=== PATIENT | male | born 1945 | race Caucasian/White ===

== ENCOUNTER → 2023-11-11 07:11 | Outpatient (REF) | payer OTHER, SELFPAY | LOC: DHCBC HW 07:11 | PROVIDERS: ATTENDING PHYSICIAN Internal Medicine; FAMILY PHYSICIAN Family Medicine | DX: I25.10 Atherosclerotic heart disease of native coronary artery without angina pectoris (principal); I34.0 Nonrheumatic mitral (valve) insufficiency; I21.19 ST elevation (STEMI) myocardial infarction involving other coronary artery of inferior wall | CPT/HCPCS: 93306 ==

== ENCOUNTER → 2023-11-21 11:27 | Outpatient (REF) | payer OTHER, SELFPAY | LOC: HWRAD 11:27 | PROVIDERS: ATTENDING PHYSICIAN Internal Medicine; FAMILY PHYSICIAN Family Medicine | DX: R05.3 Chronic cough (principal) | CPT/HCPCS: 71046 ==

== ENCOUNTER → 2023-12-20 13:17 | Outpatient (REF) | payer OTHER, SELFPAY | LOC: RAD 13:17 | PROVIDERS: ATTENDING PHYSICIAN Internal Medicine; FAMILY PHYSICIAN Family Medicine | DX: I25.10 Atherosclerotic heart disease of native coronary artery without angina pectoris (principal); I10 Essential (primary) hypertension; I21.19 ST elevation (STEMI) myocardial infarction involving other coronary artery of inferior wall; R41.0 Disorientation, unspecified | CPT/HCPCS: 93880 ==

== ENCOUNTER → 2024-01-03 08:39 | Outpatient (REF) | payer OTHER, SELFPAY | LOC: RAD 08:39 | PROVIDERS: ATTENDING PHYSICIAN Otolaryngology; FAMILY PHYSICIAN Family Medicine | DX: K21.9 Gastro-esophageal reflux disease without esophagitis (principal); R13.10 Dysphagia, unspecified | CPT/HCPCS: 74221 ==

== ENCOUNTER 2024-01-06 08:17 | Day surgery (SDC) | payer OTHER, SELFPAY ==
[2024-01-02 07:56] VITALS: BMI 30.7
[2024-01-02 08:21] LABS: % Basophils 0.6 % (0-2); % Eosinophils 2.7 % (0-6); % Immature Granulocytes 0.8 % (0-0.5); % Lymphocytes 13.6 % (20.5-51.1); % Monocytes 9.4 % (1.7-9.3); % Neutrophils 72.9 % (42.2-75.2); Absolute Basophils 0.1 10^3/uL (0-0.2); Absolute Eosinophils 0.2 10^3/uL (0-0.7); Absolute Immature Granulocytes 0.1 10^3/uL (0-0.05); Absolute Lymphocytes 1.2 10^3/uL (1.2-3.4); Absolute Monocytes 0.9 10^3/uL (0.1-0.6); Absolute Neutrophils 6.6 10^3/uL (1.4-6.5); Hematocrit 35.5 % (39.0-52.0); Mean Corp Hgb Conc. 33.8 g/dL (33.0-37.0); Mean Corpuscular Hgb 28.5 pg (27.0-31.0); Mean Corpuscular Volume 84.3 fL (80.0-94.0); Mean Platelet Volume 9.5 fL (7.4-10.4); Nucleated Red Blood Cells % 0 % (-); Platelet Count 312 10^3/uL (130-400); Red Blood Cell Count 4.21 10^6/uL (4.70-6.10); Red Cell Dist. Width 13.5 % (11.5-14.5)
[2024-01-02 08:41] LABS: ALT (SGPT) 20 U/L (0-50); AST (SGOT) 27 U/L (17-59); Albumin 4.1 g/dl (3.5-5.0); Alkaline Phosphatase 208 U/L (38-126); Blood Urea Nitrogen 16 mg/dl (9-20); Calcium 9.4 mg/dl (8.4-10.2); Carbon Dioxide 27 mmol/L (22-30); Chloride 103 mmol/L (98-107); Estimated Creatinine Clearance 63 ml/min; Glucose 140 mg/dl (70-99); Potassium 4.4 mmol/L (3.5-5.1); Sodium 136 mmol/L (135-145); Total Bilirubin 0.8 mg/dl (0.2-1.3); Total Protein 6.7 g/dl (6.3-8.2); eGFR > 60.00
[2024-01-06] VITALS (10 sets, daily range): BP systolic 123–162; BP diastolic 47–74; BMI 30.7
[2024-01-06 09:02] LABS: Glucose - Point of Care 118 mg/dl (70-99)
[2024-01-06] MEDS: NSS 251 ML IV (09:20)
--- NOTE | 2024-01-06 09:47 | ITS.CL.CATH ---
Floor Hand - Catheterization
Cardiac Catheterization
Procedure Report:
CARDIAC CATHETERIZATION REPORT
Date of Procedure: 01/06/2024
Referring: Ace Nazario MD, PhD
Indication: NSVT with known CAD. Multivessel stenting performed in 2013
HEMODYNAMIC DATA
AO: 138/63
LV: 142/17
PCWP: 17
PA: 42/18
RV: 42/10
RA: 9
Oximetry: Ao 95%, PA 70%, cardiac output 5.5, cardiac index 2.9
There is a trivial gradient across the aortic valve on pullback likely reflecting aortic sclerosis without significant stenosis
LEFT VENTRICULOGRAPHY: Inferobasal akinesis with otherwise normal wall motion with EF 51%
CORONARY ANGIOGRAPHY
Dominance: Right
Left Main: Normal
LAD: There is no significant disease in the proximal LAD. There is a long stented segment in the mid LAD with a focal area of 30-40% stenosis. The remainder of the LAD system has trivial luminal irregularities
Circumflex: Focal 40% mid stenosis in the large terminal OM 3. OM1 is tiny. OM 2 is a medium to large sized vessel with trivial luminal disease.
RCA: 50-60% proximal RCA stenosis. This lesion is just proximal to the stented segment which has no restenosis. There is a focal 30-40% stenosis in the midportion of the stented segment. There are tandem 30% distal RCA stenoses. The PDA and
posterolateral branch have mild luminal irregularities
FloWire assessment: At the conclusion the diagnostic study we evaluated the proximal and mid RCA lesions with FloWire. Heparin was used for anticoagulation. A 6 [place] JR4 guide catheter was used. A [place] wire was advanced into the mid RCA
distal to the stenosis within the previously stented segment. iFR measurements were 0.92, 0.92, and 0.93. These are consistent with nonflow-limiting disease.
Closure Device: None-the procedure was performed via the right radial artery. The Compa's test was normal prior to the procedure
Radiation dose (mGy): 609
DAP (cm2.Gy): 47.7
Fluoroscopy time: 4.1 minutes
CONCLUSIONS:
1. Mildly elevated left heart filling pressures with normal right heart filling pressures and mild pulmonary hypertension
2. Inferobasal akinesis with otherwise normal wall motion with EF 51%. The inferior wall motion abnormality was present on the prior study from 2013
3. Mild residual CAD with patent LAD and RCA stents. FloWire assessment of the RCA disease shows this is nonflow limiting
RECOMMENDATIONS: Continue beta-anna for NSVT. Given the presence of a inferobasal scar. If there are symptoms concerning for more prolonged episodes of ventricular tachycardia, EPS can be considered
Copy to: Ace Nazario MD, PhD, Ira Coleman DO
Carl Daugherty MD, FACC, [facility]
[2024-01-06 10:20] LABS: ACT-LR - POC 161 Seconds (116-155)
[2024-01-06] MEDS: TYLENOL 650 MG PO (11:26)
--- NOTE | 2024-01-06 12:52 | PTCARENOTE ---
pt in nsr w rt bbb w hr of 45-55/ pt now having frequent pauses . notified matthew jacobs of [facility] . otherwise pt aa and oriented x 3 without complaint.
--- NOTE | 2024-01-06 13:10 | PTCARENOTE ---
pt pauses are less than 2 seconds. pt is not symptomatic
--- NOTE | 2024-01-06 13:19 | PTCARENOTE ---
dr de luna aware of rythum and believes pt has mobits 1. no furthur treatment needed
== END 2024-01-06 12:27 | disposition home or self-care (01) ==
LOC: CATH 08:17
PROVIDERS: ATTENDING PHYSICIAN Internal Medicine Cardiovascular Disease; FAMILY PHYSICIAN Family Medicine; OTHER PHYSICIAN Internal Medicine
DX: I25.10 Atherosclerotic heart disease of native coronary artery without angina pectoris (principal); Z95.5 Presence of coronary angioplasty implant and graft; I47.20 Ventricular tachycardia, unspecified; R06.09 Other forms of dyspnea; I10 Essential (primary) hypertension; E78.00 Pure hypercholesterolemia, unspecified; I44.2 Atrioventricular block, complete; I08.1 Rheumatic disorders of both mitral and tricuspid valves; I27.20 Pulmonary hypertension, unspecified; J44.9 Chronic obstructive pulmonary disease, unspecified; G47.33 Obstructive sleep apnea (adult) (pediatric); E11.9 Type 2 diabetes mellitus without complications; Z87.891 Personal history of nicotine dependence; Z79.82 Long term (current) use of aspirin; Z79.84 Long term (current) use of oral hypoglycemic drugs
CPT/HCPCS: C1769; C1894; 36415; 80053; 82962; 85025; 85347; 93005; 93460; 93571; Q9967

== ENCOUNTER 2024-01-17 06:33 | Day surgery (SDC) | payer OTHER, SELFPAY ==
[2024-01-17] VITALS (21 sets, daily range): BP systolic 110–167; BP diastolic 62–91
--- NOTE | 2024-01-17 08:23 | W.ICD.CONTRA ---
Post ICD/[employer]IME PLANT OPERATOR-D
-
History of LA?: Yes
LV Function
Left ventricular function study result?: Ejection Fraction >/= 40%
ACEI/ARB/ARNI
Patient already on ACEI/ARB/ARNI: Yes
Beta-Whitney
Patient already on Beta Whitney: Yes
--- NOTE | 2024-01-17 08:54 | ITS.CL.ICD ---
Buyer Intern - ICD
Implantable Cardioverter Defibrillator
Procedure Report:
Dual Chamber Implantable Cardioverter Defibrillator Placement:
Mr. Malhotra is a very pleasant 78 years old gentleman with recurrent syncope, non-sustained ventricular tachycardia and bradycardia with RCA disease and TX scar is recommended a dual chamber ICD placement.
Indications: VT with syncope - Secondary prevention of sudden cardiac for ventricular tachycardia
Date of the Procedure: 01/17/2024
Pre-Operative Diagnosis: Secondary prevention of sudden cardiac for ventricular tachycardia
Post-Operative Diagnosis: Secondary prevention of sudden cardiac for ventricular tachycardia
Procedure Performed: DUAL CHAMBER IMPLANTABLE CARDIOVERTER DEFIBRILLATOR IMPLANTATION
Performing physician:
Bertha De Santiago MD
Anesthesia:
See anesthesia records
Detailed Description of the Procedure:
The patient was identified using hospital identification and informed consent obtained for the procedure. The risks were explained including, but not limited to: Bleeding, infection, arrhythmia, stroke, vascular/cardiac/lung puncture, surgery,
pacemaker dependency/device malfunction. All questions were answered.
The patient was brought to the electrophysiology laboratory in stable condition in fasting state. Continuous electrocardiographic and hemodynamic monitoring was initiated. The initial rhythm was normal sinus rhythm with PVCs.
The procedure site was meticulously prepared with surgical scrub and allowed to dry with no pooling. Sterile draping was applied to cover the procedure site. The image intensifier was draped with sterile bag and positioned over the patient.
The left infraclavicular region was prepped and draped in the usual sterile fashion. Local anesthesia was administered subcutaneously using 1% lidocaine / Bupivacaine. The left cephalic vein cutdown was performed with an incision at the
delto-pectoral groove, and vascular sheaths were introduced for lead access. These were advanced into the right ventricle and the right atrium.
The right ventricular lead was secured in position with an active fixation technique at the apical septal location.
The RA lead was attached in the right atrial appendage with active fixation.
There was excellent sensing, pacing, and impedance from the leads, with no diaphragmatic stimulation at 10 V output.�Bovie cautery, antibiotics, and fluoroscopy were used.
The sheath was withdrawn, and the thresholds remained acceptable. The leads were secured in position at the venous entry site with Ethibond and anchored to the underlying fascia. A pocket was fashioned contiguous to the incision. The electrode
terminals were connected to the pulse generator, which was placed into the pocket. The wound was irrigated thoroughly with antibiotic solution.
The wound was closed in 3 layers using 2-0 Vloc sutures followed by 4-0 V-loc sutures. Steri-Strips and a bandage were applied externally.�
Procedure End:
The procedure was tolerated well. A bandage was applied to the incision area.
Estimated Blood loss:
5 cc
Specimens Removed:
No cultures and no specimens were obtained. No intraoperative pathology was identified.
Urine output:
None
Packs / Drains/ Tubes:
None
Instrument / Sponge Count Correct:
Yes
Complications of the Procedure:
None
Condition of Patient at Time of Transfer:
Hemodynamically stable with no neurological or vascular compromise.
Device information:�
Generator: [employer]; Model: [id number]; Serial # [id number]�
Atrial Lead: [employer]; Model: Tendril STS [id number]; Serial # [id number]
Measured data in the right atrium was sensing of 1.1 mV, impedance of 410 ohms and threshold of 0.75 V at 0.4ms�
RV Lead: [employer]; Model: [id number] - 65; Serial # [id number]
Measured data in the RV lead was sensing of >12 mV, impedance of 660ohms and threshold of 0.5 V at 0.4ms�
PROGRAMMING PARAMETERS:�
Conor parameter settings were DDDR 60-120 bpm
����������� Mode switch: On
����������� Rate responsive A-V delay: Off
����������� Ventricular intrinsic Preference (VIP): on
����������� VIP extension:� 200 ms
����������� Search interval 30 sec
Output� parameters:
����������������������� Amplitude (V)������������� Pulse Width (ms)������� Sensitivity (mV)
����������� RA: ����� 2.5 ����������������������������� 0.5������������������������������ Auto
����������� RV:������ 2.5������������������������������ 0.5������������������������������ Auto
Tachy parameter settings:
����������� SVT discrimination: On
����������� AF/AFl: On
����������� SVT limit: 260 msec
����������� VT zone:
����������������������� Slow VT: 150-171 bpm --> Monitor
����������������������� Fast VT: 171-200--> ATP x3 then Shock x3
����������������������� VF: >200 bpm--> ATP x1 then Shock x6
�����������
Summary:
Successful implantation of MRI compatible dual chamber Tran ICD pacemaker
Results/Recommendations:
-Please follow up CXR�
1. Please provide patient with adequate pain control�
Instructions to be given to patient:�
- Please follow up with [facility] at [address] [place] [address] ([phone]) to get your wound checked within 7 days of your discharge.
- Do not wet incision site until after it is evaluated at cardiology clinic. No showers until then. Sponge baths are OK.�
- Allow 'steri strips' to fall off on their own�
- Do not lift left elbow above shoulder, particularly with sudden jerking movements, for 1 month�
- Do not lift anything weighing more than 5 pounds with the left arm for 1 month�
- If you notice any fevers, shortness of breath, lightheadedness, chest pain, or worsening swelling in the wound site, please contact the arrhythmia clinic, contact your underground miner, or present to the hospital for evaluation.�
Bertha De Santiago MD
Electrophysiology
--- NOTE | 2024-01-17 13:20 | W.PN.UPDATE ---
Update Note
Progress Note Update
Pt seen post ICD implant. Left ACW w/aquacel dressing CDI, no ht/bleeding. Post CXR w/stable lead position, no pneumothorax. Activity limitations reviewed with pt/. Incision check next week at [facility] with [employer] PROFESSOR. Home later today after 2nd dose
antibiotics.
[2024-01-17] MEDS: ANCEF 5 IV (13:54)
== END 2024-01-17 14:10 | disposition home or self-care (01) ==
LOC: CATH 06:33
PROVIDERS: ATTENDING PHYSICIAN Internal Medicine Cardiovascular Disease; FAMILY PHYSICIAN Family Medicine; OTHER PHYSICIAN Internal Medicine
DX: I44.2 Atrioventricular block, complete (principal); I47.20 Ventricular tachycardia, unspecified; I25.10 Atherosclerotic heart disease of native coronary artery without angina pectoris; R06.09 Other forms of dyspnea; I25.2 Old myocardial infarction; I11.9 Hypertensive heart disease without heart failure; Z95.5 Presence of coronary angioplasty implant and graft; E78.00 Pure hypercholesterolemia, unspecified; I08.1 Rheumatic disorders of both mitral and tricuspid valves; E11.9 Type 2 diabetes mellitus without complications; G47.33 Obstructive sleep apnea (adult) (pediatric); K76.0 Fatty (change of) liver, not elsewhere classified; Z87.891 Personal history of nicotine dependence; Z79.82 Long term (current) use of aspirin; Z79.84 Long term (current) use of oral hypoglycemic drugs
CPT/HCPCS: 33249; C1892; 71045; 93005; C1721; C1895; C1898

== ENCOUNTER → 2024-02-15 08:13 | Outpatient (REF) | payer OTHER, SELFPAY | LOC: HWRAD 08:13 | PROVIDERS: ATTENDING PHYSICIAN Nurse Practitioner Adult Health; FAMILY PHYSICIAN Family Medicine | DX: R05.3 Chronic cough (principal) | CPT/HCPCS: 71250 ==

== ENCOUNTER → 2024-03-13 08:05 | Outpatient (REF) | payer OTHER, SELFPAY | LOC: HWRAD 08:05 | PROVIDERS: ATTENDING PHYSICIAN Surgery Vascular Surgery; FAMILY PHYSICIAN Family Medicine | DX: I72.3 Aneurysm of iliac artery (principal); I71.02 Dissection of abdominal aorta; I70.0 Atherosclerosis of aorta | CPT/HCPCS: 74174; Q9967 ==

== ENCOUNTER → 2024-07-27 13:25 | Outpatient (REF) | payer OTHER, SELFPAY | LOC: RCS 13:25 | PROVIDERS: ATTENDING PHYSICIAN Nurse Practitioner Gerontology; FAMILY PHYSICIAN Family Medicine | DX: I34.0 Nonrheumatic mitral (valve) insufficiency (principal); C34.91 Malignant neoplasm of unspecified part of right bronchus or lung | CPT/HCPCS: 93306; 93356 ==

== ENCOUNTER 2024-08-03 19:10 | Inpatient (IN) | payer OTHER, SELFPAY ==
[2024-08-03 14:30] VITALS: BP 154/80
--- NOTE | 2024-08-03 14:30 | ED.SKININJ ---
HPI-Injury
General
Chief Complaint: Breathing Problem
Time Seen by Provider: 08/03/24 16:37
ED Provider Triage
-
Patient seen by provider in Triage?: Seen in Triage
Attestation: A medical screening examination has been initiated by a qualified medical provider. Based on the assessment performed at this time, it has been determined that an emergent medical condition may exist and the patient has been informed
that further medical evaluation and possible additional diagnostic testing may be needed.
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 Had a CAT scan at [facility] yesterday and was called today notified that he has fluid on the lungs and he should come to the
emergency department.
Chemo scheduled for yesterday but not given
Patient's cytology teacher is Dr. Nazario patient has been in contact with him today
Has been on Lasix 20 mg past 3 days and states ankle/feet swelling much improved.
GENERAL: Alert , in no apparent distress
EYE: No visual abnormalities.
NECK: Trachea midline
ENT: No visible abnormalities.
LUNGS: No acute respiratory distress. Crackles left lung base. Pulse ox 98% RA
NEUROLOGICAL: Alert and oriented
SKIN: Skin intact. No visible changes.
MUSCULOSKELETAL: Moving extremities normally
PSYCH: Normal and appropriate interaction.
This is a medical evaluation conducted in person to initiate diagnostic evaluation and provide initial therapeutics. Please see further documentation by the treating clinician.
Past History
Past History
ED Past Medical History: CAD, GERD, HTN, Hypercholesterolemia, NIDDM and SD
ED Past Surgical History: Cholecystectomy
Social History
Tobacco: Former smoker
Alcohol: None
Drug: None
Personal:
Living: with family
Employment: Employed
Family History
Family History: Other (Noncontributory)
Course
Orders/Labs/Results
Orders:
Orders
08/03/24 14:33
CR Chest - 2 Views Urgent
Comment:
Reason For Exam: SOB, told he has pleural effusion
08/03/24 14:38
Complete Blood Count/With Diff Urgent
Comprehensive Metabolic Panel Urgent
NT-proBNP Urgent
Troponin I Urgent
08/03/24 16:57
Furosemide [Lasix] 40 mg IV NOW STA
Abnormal Lab Results
08/03/24
14:38
RBC 2.42 L 10^6/uL
(4.70-6.10)
Hgb 7.6 L g/dL
(13.0-18.0)
Hct 24.6 L %
(39.0-52.0)
MCV 101.7 H fL
(80.0-94.0)
MCH 31.4 H pg
(27.0-31.0)
MCHC 30.9 L g/dL
(33.0-37.0)
RDW 28.0 H %
(11.5-14.5)
Abs Immat Gran (auto) 0.2 H 10^3/uL
(0-0.05)
Absolute Lymphs (auto) 0.7 L 10^3/uL
(1.2-3.4)
Absolute Monos (auto) 1.1 H 10^3/uL
(0.1-0.6)
Immature Gran % 1.8 H %
(0-0.5)
Neutrophils % 76.7 H %
(42.2-75.2)
Lymphocytes % 7.8 L %
(20.5-51.1)
Monocytes % 12.9 H %
(1.7-9.3)
Glucose 65 L mg/dl
(70-99)
Alkaline Phosphatase 193 H U/L
(38-126)
Troponin I 0.035 H* ng/ml
Total Protein 5.9 L g/dl
(6.3-8.2)
08/03/24 14:38
08/03/24 14:38
Vital Signs
Initial and Last Documented VS:
Initial Vital Signs
Temp Pulse Resp BP Pulse Ox
98.2 F 74 16 154/80 97
08/03/24 14:30 08/03/24 14:30 08/03/24 14:30 08/03/24 14:30 08/03/24 14:30
Last Documented Vital Signs
Temp Pulse Resp BP Pulse Ox
98.2 F 74 16 154/80 97
08/03/24 14:30 08/03/24 14:30 08/03/24 14:30 08/03/24 14:30 08/03/24 14:30
ED Attending Note
-
Portions of this chart may have been created with voice recognition software.� Occasional wrong word or��sound alike� substitutions may have occurred due to the inherent limitations of voice recognition software.
Discharge Plan
Departure
Prescriptions:
No Action
metoprolol tartrate 50 MG tablet
50 mg PO BID
nitroglycerin 0.4 MG tablet, sublingual
0.4 mg sublingual Q5MPRN PRN (Reason: chest pain)
aspirin 81 MG tablet,delayed release (DR/EC)
81 mg PO DAILY
cyanocobalamin (vitamin B-12) 100 MCG tablet
1,000 mcg PO DAILY
esomeprazole magnesium [Nexium] 20 MG capsule,delayed release(DR/EC)
20 mg PO DAILY
multivitamin Tablet
1 tab PO DAILY
metformin 500 mg Tablet
1,000 mg PO BID
acetaminophen 325 mg Tablet
650 mg PO Q4HPRN PRN (Reason: pain)
amlodipine 5 mg Tablet
5 mg PO QPM
glimepiride 2 mg Tablet
2 mg PO DAILY
benzonatate 100 mg Capsule
100 mg PO TID
rosuvastatin 10 mg Tablet
10 mg PO QPM
albuterol sulfate 90 mcg/actuation Hfa Aerosol Inhaler
1 puff INHALATION Q4HPRN PRN (Reason: SOB)
inulin 2.5 gram Tablet,Chewable
5 g PO QPM
valsartan 160 mg Tablet
160 mg PO BID
dihydroxyaluminum sodium carb 334 mg Tablet,Chewable
334 mg PO DAILY PRN (Reason: Reflux)
guaifenesin 100 mg/5 mL Liquid
200 mg PO Q4HPRN PRN (Reason: chest congestion)
Referrals:
Ira Coleman, [Family Provider] -
Interventions
Interventions:
*Risk Screen - Suicide Last Done: 08/03/24 14:30
*Neglect/Abuse Screening Last Done: 08/03/24 14:30
Discharge Date and Time
Print Language: BRUNEIAN
[2024-08-03 15:05] LABS: ALT (SGPT) 19 U/L (0-50); AST (SGOT) 38 U/L (17-59); Albumin 3.9 g/dl (3.5-5.0); Alkaline Phosphatase 193 U/L (38-126); Blood Urea Nitrogen 13 mg/dl (9-20); Calcium 8.5 mg/dl (8.4-10.2); Carbon Dioxide 29 mmol/L (22-30); Chloride 105 mmol/L (98-107); Glucose 65 mg/dl (70-99); Potassium 3.8 mmol/L (3.5-5.1); Sodium 142 mmol/L (135-145); Total Bilirubin 0.5 mg/dl (0.2-1.3); Total Protein 5.9 g/dl (6.3-8.2); eGFR > 60.00
[2024-08-03 15:06] LABS: % Basophils 0.4 % (0-2); % Eosinophils 0.4 % (0-6); % Immature Granulocytes 1.8 % (0-0.5); % Lymphocytes 7.8 % (20.5-51.1); % Monocytes 12.9 % (1.7-9.3); % Neutrophils 76.7 % (42.2-75.2); Absolute Immature Granulocytes 0.2 10^3/uL (0-0.05); Absolute Lymphocytes 0.7 10^3/uL (1.2-3.4); Absolute Monocytes 1.1 10^3/uL (0.1-0.6); Absolute Neutrophils 6.5 10^3/uL (1.4-6.5); Hematocrit 24.6 % (39.0-52.0); Hemoglobin 7.6 g/dL (13.0-18.0); Mean Corp Hgb Conc. 30.9 g/dL (33.0-37.0); Mean Corpuscular Hgb 31.4 pg (27.0-31.0); Mean Corpuscular Volume 101.7 fL (80.0-94.0); Mean Platelet Volume 10.1 fL (7.4-10.4); Nucleated Red Blood Cells % 0 % (-); Platelet Count 211 10^3/uL (130-400); Red Blood Cell Count 2.42 10^6/uL (4.70-6.10); White Blood Cell Count 8.4 10^3/uL (4.8-10.8)
[2024-08-03 15:24] LABS: NT-proBNP 4520 pg/ml; Troponin I 0.035 ng/ml
[2024-08-03 15:41] LABS: Anisocytosis 2+; Normal RBC Morphology No
[2024-08-03 15:42] LABS: Hypochromasia 1+; Macrocytosis 2+; Microcytosis 1+; Poikilocytosis Slight; Polychromasia Slight
[2024-08-03 15:43] LABS: Ovalocytes Slight
[2024-08-03 16:40] VITALS: BP 165/76
[2024-08-03 17:00] VITALS: BP 180/74
--- NOTE | 2024-08-03 17:18 | ED.GENMED ---
History of Present Illness
General
Chief Complaint: Breathing Problem
Source: patient and spouse
Exam Limitations: none
Time Seen by Provider: 08/03/24 16:37
History of Present Illness
History of Present Illness:
79-year-old male increase shortness of breath the last 3 to 4 days. Some increased leg swelling. Discussed with patient's oncologist and cigar packing examiner. They added Lasix 20 mg a day 4 days ago[address] Minimal improvement. CT angio done yesterday as an
outpatient by his oncologist was unremarkable for PE but had bilateral effusions. All labs and testing was consistent with CHF. Sent in for further evaluation.
Past History
Past History
ED Past Medical History: CAD, GERD, HTN, Hypercholesterolemia, NIDDM and VT
ED Past Surgical History: Cardiac (Pacer defibrillator) and Cholecystectomy
Social History
Tobacco: Former smoker
Alcohol: None
Drug: None
Personal:
Living: with family
Employment: Employed
Family History
Family History: Other (Noncontributory)
Review of Systems
Review of Systems
All Other Systems: Not applicable
Constitutional: Denies fever or chills
Respiratory: Denies cough
Cardiac: Denies chest pain
Phy Exam
Physical Exam
Physical Exam:
GENERAL: Alert and oriented in no apparent distress
EYE: Orbits normal.
NECK: Supple, no significant adenopathy.
ENT: Pharynx without erythema
CARDIAC: Regular rate and rhythm pacemaker upper chest wall. Pacemaker upper chest wall
LUNGS: Minimal tachypnea. Dry rales in the bases.
ABDOMEN: Soft, without focal tenderness or distention
NEUROLOGICAL: Alert and oriented , grossly non-focal
SKIN: Warm and dry, no rash or lesion, no discoloration, skin intact.
MUSCULOSKELETAL: Mild pitting edema bilaterally
PSYCH: Normal and appropriate interaction.
Scores
Heart Failure Risk
Heart Failure Risk Score: Yes
History of Stroke or TIA: No
History of intubation for respiratory distress: No
Heart rate on ED arrival >/= 110: No
SaO2 <90% on arrival on room air: No
HR >/=110 during 3min walk test (or too ill to perform test): Yes
ECG has acute ischemic changes: No
Urea >/=12mmol/L (BUN 33.6mg/dL): No
Serum CO2>/=35mmol/L: No
Troponin I or T elevated to VT Level (0.4mg/dL): No
NT-proBNP >/=5,000ng/L (5,000pg/ml): No
HF Risk Score: 2
Admission Status: MEDIUM RISK 9.2% Consider observation or discharge to home with homecare & f/u visit to PCP/[employer], or SNF for treatment
Course
Orders/Labs/Results
Orders:
Orders
08/03/24 14:33
CR Chest - 2 Views Urgent
Comment:
Reason For Exam: SOB, told he has pleural effusion
08/03/24 14:38
Complete Blood Count/With Diff Urgent
Comprehensive Metabolic Panel Urgent
NT-proBNP Urgent
Troponin I Urgent
08/03/24 16:57
Furosemide [Lasix] 40 mg IV NOW STA
Abnormal Lab Results
08/03/24
14:38
RBC 2.42 L 10^6/uL
(4.70-6.10)
Hgb 7.6 L g/dL
(13.0-18.0)
Hct 24.6 L %
(39.0-52.0)
MCV 101.7 H fL
(80.0-94.0)
MCH 31.4 H pg
(27.0-31.0)
MCHC 30.9 L g/dL
(33.0-37.0)
RDW 28.0 H %
(11.5-14.5)
Abs Immat Gran (auto) 0.2 H 10^3/uL
(0-0.05)
Absolute Lymphs (auto) 0.7 L 10^3/uL
(1.2-3.4)
Absolute Monos (auto) 1.1 H 10^3/uL
(0.1-0.6)
Immature Gran % 1.8 H %
(0-0.5)
Neutrophils % 76.7 H %
(42.2-75.2)
Lymphocytes % 7.8 L %
(20.5-51.1)
Monocytes % 12.9 H %
(1.7-9.3)
Glucose 65 L mg/dl
(70-99)
Alkaline Phosphatase 193 H U/L
(38-126)
Troponin I 0.035 H* ng/ml
Total Protein 5.9 L g/dl
(6.3-8.2)
08/03/24 14:38
08/03/24 14:38
Vital Signs
Initial and Last Documented VS:
Initial Vital Signs
Temp Pulse Resp BP Pulse Ox
98.2 F 74 16 154/80 97
08/03/24 14:30 08/03/24 14:30 08/03/24 14:30 08/03/24 14:30 08/03/24 14:30
Last Documented Vital Signs
Temp Pulse Resp BP Pulse Ox
98.2 F 74 16 154/80 97
08/03/24 14:30 08/03/24 14:30 08/03/24 14:30 08/03/24 14:30 08/03/24 14:30
MDM/Problems Addressed
Differential Diagnosis Includes:
Patient with increased shortness of breath leg swelling elevated proBNP effusions by CT. CHF. May also be contributed by anemia. Rectal exam negative. Warrants inpatient management.
*Critical Care Note
Total Time (30-74mins, 75-104mins- exclusive of procedures): Not Applicable
Update Note
Update Note:
Patient remained stable. Treat CHF first. Consent for blood done but they will hold all and blood for now
ED Attending Note
-
Portions of this chart may have been created with voice recognition software.� Occasional wrong word or��sound alike� substitutions may have occurred due to the inherent limitations of voice recognition software.
Discharge Plan
Departure
Patient Disposition: Admit
Date of Disposition: 08/03/24
Time of Disposition: 17:23
Presentation/result/management discussed w/ accepting MD/DO: Hospitalist
Discharge Problem:
CHF/anemia, History of lung CA
Prescriptions:
No Action
metoprolol tartrate 50 MG tablet
50 mg PO BID
aspirin 81 MG tablet,delayed release (DR/EC)
81 mg PO HS
metformin 500 mg Tablet
500 mg PO BID@0800,1400
glimepiride 2 mg Tablet
1 mg PO DAILY
benzonatate 100 mg Capsule
100 mg PO BID
rosuvastatin 10 mg Tablet
10 mg PO DAILY
albuterol sulfate 90 mcg/actuation Hfa Aerosol Inhaler
1 puff INHALATION Q4HPRN PRN (Reason: SOB)
valsartan 160 mg Tablet
160 mg PO BID
guaifenesin 100 mg/5 mL Liquid
200 mg PO Q4HPRN PRN (Reason: chest congestion)
metformin 500 mg tablet
1,000 mg PO HS
cyanocobalamin (vitamin B-12) 1,000 mcg Tablet
1,000 mcg PO HS
pantoprazole 40 mg tablet,delayed release (DR/EC)
40 mg PO BID
folic acid 1 mg tablet
1 mg PO DAILY
Anoro Ellipta 62.5-25 mcg/actuation blister with device
1 inh INHALATION R DAILY
Referrals:
Ira Coleman, [Family Provider] -
Interventions
Interventions:
*Risk Screen - Suicide Last Done: 08/03/24 14:30
*Neglect/Abuse Screening Last Done: 08/03/24 14:30
Discharge Date and Time
Print Language: [place] ISLAND[place]
[2024-08-03] MEDS: LASIX 40 MG IV (17:28)
--- NOTE | 2024-08-03 18:10 | HPS.HSE ---
Addendum entered and electronically signed by Piero Lutz MD 08/03/24 18:49:
Addendum HX:
HX stage IV Lung CA
- Chemo Tx ever 3weeks at [facility]
Original Note:
Family Physician
-
Family Physician: Ira Coleman
Chief Complaint
-
soB and Saira swelling
History of Present Illness
HPI
HX Lung CA , HTN, HLD, DMT2 , on baby ASA seen at ER:
- for evaluation of shortness of breath the last 3 to 4 days
- associated with increased leg swelling
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
Oncologist ordered CT angio done yesterday as an outpatient by his oncologist was unremarkable for PE but had bilateral effusions.
Medical History
Past Medical History
Past Medical History: Reports CAD, CHF (LVEF 45- 50 as of 07/27/24 ECHO ), GERD, HTN, Hypercholesterolemia, NIDDM and AK
Past Surgical History: Reports Cardiac (Pacer defibrillator) and Cholecystectomy
Social History
Tobacco: Former Smoker
Alcohol: None
Drug: None
Personal:
Family History
Family History: Not pertinent
Allergies / Home Medications
Allergies reflects when Allergies were last updated in [facility].
Home Medications with original date entered in [facility]
Allergy/Medication List:
Allergies
Allergy/AdvReac Type Severity Reaction Status Date / Time
fenofibrate Allergy Unknown Unknown Verified 08/03/24 14:32
lisinopril Allergy Unknown Unknown Verified 08/03/24 14:32
omeprazole Allergy Unknown Unknown Verified 08/03/24 14:32
Home Medications
metoprolol tartrate 50 mg tablet 50 mg PO BID 11/22/14
aspirin 81 mg tablet,delayed release 81 mg PO HS 08/14/15
benzonatate 100 mg capsule 100 mg PO BID 12/30/23
glimepiride 2 mg tablet 1 mg PO DAILY 12/30/23
metformin 500 mg tablet 500 mg PO BID@0800,1400 12/30/23
rosuvastatin 10 mg tablet 10 mg PO DAILY 12/30/23
albuterol sulfate 90 mcg/actuation aerosol inhaler 1 puff inhalation Q4HPRN PRN SOB 01/02/24
valsartan 160 mg tablet 160 mg PO BID 01/06/24
guaifenesin 100 mg/5 mL oral liquid 200 mg PO Q4HPRN PRN chest congestion 01/17/24
cyanocobalamin (vitamin B-12) 1,000 mcg tablet 1,000 mcg PO HS 08/03/24
folic acid 1 mg tablet 1 mg PO DAILY 08/03/24
metformin 500 mg tablet 1,000 mg PO HS 08/03/24
pantoprazole 40 mg tablet,delayed release 40 mg PO BID 08/03/24
umeclidinium 62.5 mcg-vilanterol 25 mcg/actuation powdr for inhalation (Anoro Ellipta) 1 inh inhalation R DAILY 08/03/24
Review of Systems
-
Constitutional: Reports No Symptoms
EENT: Reports No Symptoms
Respiratory: Reports Trouble Breathing
Cardiac: Reports See HPI
Abdomen/GI: Reports No Symptoms
: Reports No Symptoms
Musculoskeletal: Reports No Symptoms
Skin: Reports No Symptoms
Neurological: Reports No Symptoms
Endocrine: Reports No Symptoms
Hematologic/Lymphatic: Reports No Symptoms
Psych: Reports No Symptoms
Physical Exam
Vital Signs
Vital Signs
Temp Pulse Resp BP Pulse Ox
98.2 F 74 16 154/80 97
08/03/24 14:30 08/03/24 14:30 08/03/24 14:30 08/03/24 14:30 08/03/24 14:30
Physical Exam
General: No Apparent Distress
HEENT: NormoCephalic and Anicteric
Respiratory: Rales (Dry rales in the bases.) and Other (tachypnea )
Cardiac: S1/S2; No Murmur
GI: Soft, Non Tender and Non Distended
Musculoskeletal: Other (Mild pitting edema bilaterally under b/l compression stocking )
Neuro: AO x 3
Psych: Calm
Laboratory Results
-
08/03/24 14:38
08/03/24 14:38
Laboratory Results
Total Bilirubin 0.5 mg/dl (0.2-1.3) 08/03/24 14:38
AST 38 U/L (17-59) 08/03/24 14:38
ALT 19 U/L (0-50) 08/03/24 14:38
Alkaline Phosphatase 193 U/L (38-126) H 08/03/24 14:38
Troponin I 0.035 ng/ml H* 08/03/24 14:38
Data Reviewed
-
Medical Tests (Nuc Med, Echo, EKG etc): Report Reviewed by me
Lab Data: Labs Reviewed by me
Impression/Plan
-
Reviewed VS: unremarkable
Pending CXR report
Laboratory Tests
01/02/24 08/03/24
08:07 14:38
Hgb 12.0 L 7.6 L
MCV 101.7 H
Glucose 65 L
Alkaline Phosphatase 193 H
Troponin I 0.035 H*
Lpm-Y-Hapkpplwurp Pept 4520
07/27/24 TTE
Mildly reduced left ventricular systolic function.
Left ventricular ejection fraction is 45-50% by visual assessment.
Basal - mid inferior and inferolateral wall hypokinesis.
Mild-moderate mitral regurgitation.
Compared to the prior study on 11/11/2023, hypokinesis in the basal to mid
inferolateral wall is now seen. EF has dropped from 50 to 55% to 45 to 50%.
No prior hospitalist admission
ASSESSMENT & PLAN
Acute dyspnea : 08/03/24 CTA NEG PE but b/l pleural effusion pr ER attd . Officail report is not available
Current evaluation concern for acute HF suspect underlying chr HFrEF ???
Elevated TPNI suspect NIMI due to acute HF
- s/p IV Lasix 40 x1 at ER
- IV Lasix 20 BID
- Trend Cr
- CBC card consult
Severe new interval anemia - element of hemodilution duet expanded volue ??
Current Hgb 7s, Last Hgb 12.0 on 01/02/24
- check HoB stool
- T & S
- Blood consented
- IV diuresis and observe Hgb
- Observe Hgb to consider Blood Tx after IV diuresis
- cont ASA and observe Hgb
- cont PO PPI daily
- DCA card consult
MAY suspect due to cardiorenal syndrome vs. over diuresis
- Daily Cr with IV diuresis
- Hold Valsartan
Hypoglycemia
T2DM
- Hold Metformin
- Hold Glimepiride
- add ISS with Hypoglycemic protocol
Essential HTN
- cont. Metoprolol
HX CAD
HX AK
HLD
- on ASA , Rosuvastatin
HX Lung CA
- OP Onco follow up
DVT Px: SCD
Code: Full
Ip TLM
--- NOTE | 2024-08-03 18:50 | W.PN.UPDATE ---
Update Note
Progress Note Update
This note serves as an addendum to the H&P by inside sales representative SAILAJA Lori DUNNE
HPI
83M HX CAD, CHF, A-Fib and CKD seen at ER:
- increased shortness of breath on exertion over the past several days.
- seen at PCP in the office today who referred him to the emergency department due to low POx
- In triage his pulse ox was documented as 82% on room air.
- reports increased lower extremity edema.
- does not weight himself on a regular basis.
ROS
denies chest pains or palpitations.
Vital Signs
Temp Pulse Resp BP Pulse Ox
98.2 F 70 11 180/74 94
08/03/24 14:30 08/03/24 18:30 08/03/24 18:30 08/03/24 17:00 08/03/24 17:00
PE
General: Comfortable
HEENT: Moist mucous membranes and wearing NC O2
Respiratory: diffuse rales
Cardiac: S1/S2, Regular Rhythm and Murmur
GI: Soft and Non Tender
Rectal: Deferred by Provider
Musculoskeletal: +3 pitting edema bilateral Saira
Skin: Warm and Dry
Neuro: Awake, Alert, Oriented and Nonfocal/grossly intact
Psych: Calm
Data
Abnormal Lab Results
08/03/24
14:38
RBC 2.42 L
Hgb 7.6 L
Hct 24.6 L
MCV 101.7 H
MCH 31.4 H
MCHC 30.9 L
RDW 28.0 H
Abs Immat Gran (auto) 0.2 H
Absolute Lymphs (auto) 0.7 L
Absolute Monos (auto) 1.1 H
Immature Gran % 1.8 H
Neutrophils % 76.7 H
Lymphocytes % 7.8 L
Monocytes % 12.9 H
Glucose 65 L
Alkaline Phosphatase 193 H
Troponin I 0.035 H*
Total Protein 5.9 L
ASSESSMENT & PLAN
Acute Hypoxic RI secondary to Acute HF
- supplemental O2 to keep POx > 93
Acute on Chronic HFrEF : DIANE February 2024: EF 30-35%
- cont. Lasix 40mg IV Daily
- trend Is&Os ad Daily Weights
- DCA card consulted
Elevated Troponin
Suspect NIMI
- trend troponin
CAD s/p CABG
- cont. atorvastatin
- cont isosorbide mononitrate
Paroxysmal AF/ A Fluter
- cont. ACCESS CLINICIAN amiodarone
- cont ACCESS CLINICIAN Coreg for rate control
- cont. Eliquis
Essential HTN
- cont ACCESS CLINICIAN Coreg and Hydralazine with hold parameters
DMT2
- cont Glipizide
- add ISS low
CKD 3b
- trend Cr on diuretics
COPD, no acute exacerbation
- cont. albuterol PRN
Hypothyroidism
- on levothyroxine
Hx Abdominal Aortic Aneurysm s/p Endovascular Repair
DVT proph: Eliquis
Code Status: DNR
IP TLM
[2024-08-03 20:43] VITALS: BP 145/54; BMI 23.9
[2024-08-03] MEDS: PROTONIX 40 MG PO (21:30)
--- NOTE | 2024-08-03 21:30 | TRANSFER ---
Pt admitted to room 418-2 from the ED, ambulated from stretcher to bed. AAOx3. Oriented pt to plan of care and room. Call zafar within reach.
[2024-08-03] MEDS: LOPRESSOR 50 MG PO (21:31)
[2024-08-03] MEDS: ASPIR LOW (ENTERIC COATED) 81 MG PO (21:31)
[2024-08-03 22:12] LABS: Troponin I 0.041 ng/ml
[2024-08-03 23:48] VITALS: BP 128/54
[2024-08-04] VITALS (9 sets, daily range): BP systolic 119–142; BP diastolic 53–65; PULSE 70–74; O2SAT 96–98; BMI 23.7
[2024-08-04 03:15] LABS: Troponin I 0.039 ng/ml
[2024-08-04 07:57] LABS: Glucose - Point of Care 102 mg/dl (70-99)
[2024-08-04] MEDS: NOVOLOG FLEXPEN-LOW RESISTANCE SC ×2 (08:00→12:31)
[2024-08-04 08:48] LABS: Hemoglobin 7.9 g/dL (13.0-18.0); Mean Corp Hgb Conc. 31.6 g/dL (33.0-37.0); Mean Corpuscular Hgb 31.7 pg (27.0-31.0); Mean Corpuscular Volume 100.4 fL (80.0-94.0); Mean Platelet Volume 10.1 fL (7.4-10.4); Platelet Count 209 10^3/uL (130-400); Red Blood Cell Count 2.49 10^6/uL (4.70-6.10); Red Cell Dist. Width 27.6 % (11.5-14.5); White Blood Cell Count 5.6 10^3/uL (4.8-10.8)
[2024-08-04] MEDS: CRESTOR 10 MG PO (08:50)
[2024-08-04] MEDS: FOLVITE 1 MG PO (08:50)
[2024-08-04] MEDS: LASIX 20 MG PO ×2 (08:50→16:48)
[2024-08-04] MEDS: LOPRESSOR 50 MG PO ×2 (08:50→20:15)
[2024-08-04] MEDS: PROTONIX 40 MG PO ×2 (08:50→20:15)
[2024-08-04 08:59] LABS: ALT (SGPT) 21 U/L (0-50); AST (SGOT) 40 U/L (17-59); Alkaline Phosphatase 210 U/L (38-126); Blood Urea Nitrogen 14 mg/dl (9-20); Calcium 8.1 mg/dl (8.4-10.2); Carbon Dioxide 30 mmol/L (22-30); Chloride 104 mmol/L (98-107); Direct Bilirubin 0.2 mg/dl (0.0-0.4); Estimated Creatinine Clearance 56 ml/min; Glucose 90 mg/dl (70-99); HDL Cholesterol 55 mg/dl; LDL Cholesterol, Calculated 35 mg/dl; Potassium 3.5 mmol/L (3.5-5.1); Sodium 143 mmol/L (135-145); Total Bilirubin 0.6 mg/dl (0.2-1.3); Total Cholesterol 122 mg/dl (50-199); Total Protein 6.1 g/dl (6.3-8.2); Triglyceride 161 mg/dl (10-149); Very Low Density Lipoprotein 32 mg/dl (0-30); eGFR > 60.00
[2024-08-04 09:03] LABS: Troponin I 0.043 ng/ml
--- NOTE | 2024-08-04 09:38 | CON.CAR ---
Addendum entered and electronically signed by Bertha De Santiago MD 08/04/24 13:11:
79-year-old gentleman with history of coronary disease status post PCI to LAD and RCA with inferior OH, bifascicular block and history of VT status post dual-chamber ICD placement (01/17/2024�Jonnathan), hypertension, COPD, obstructive sleep apnea,
history of GI bleeding, renal CA of the lung who is admitted with acute heart failure. Patient has recently been noted to have drop in LVEF from 50% to 45% thought to be secondary to chemotherapy. Patient was given IV Lasix that has significantly
improved his condition already. During his hospitalization, we will try to initiate and uptitrate GDMT as tolerated.
Patient has already received IV Lasix and appears to be close to euvolemic. I would use p.o. Lasix at this time. Most of his symptoms might be related to his severe anemia which could also be due to chemotherapy.
Original Note:
Consultation
Consultation Request
Date/Time Consultation Requested: 08/04/2024 0730
Date/Time Consultation Performed: 08/04/2024 0800
Requesting Provider: Dr. Lutz
Performing Provider: Dr. De Santiago
Reason for Consultation: CHF
Medical History
-
Chief Complaint: SOB
History of Present Illness:
79-year-old patient with history of CAD prior LAD and RCA stents 2013, prior inferior OH, first-degree AV block, bifascicular block PACs VT with ICD placement, hypertension dyslipidemia COPD JD on CPAP history of GI bleeding and adenocarcinoma of
the lung. Patient was having increasing shortness of breath and presented for a chemo treatment. At that visit there was concern for heart failure and he was referred to the emergency room for evaluation. He notes that he has having increased
dyspnea with activity especially that she stairs. He denies symptoms at rest. He did note some mild bilateral lower extremity edema. He states his weights at home have been stable. They fluctuate approximately 1 pound per day. There has not
been a significant increase in the last several months. As an outpatient he attempted to take Lasix but there was no improvement in his symptoms.
Past Medical History
Past Medical History: Other (CAD, LAD and RCA stents, AV block bifascicular block, VT status post ICD, mild MR, hypertension, dyslipidemia, adenocarcinoma of the lung, asthma, JD with CPAP, history of GI bleeding)
Past Surgical History: Other (Cholecystectomy prior PCI with VALERIA, L4 epidurals, ICD, history of liver biopsy)
Social History
Tobacco: Non-Smoker
Personal:
Living: With Family
Family History
Family History: Reviewed & Not Pertinent
Allergies / Home Medications
Allergy/AdvReac Type Severity Reaction Status Date / Time
fenofibrate Allergy Unknown Unknown Verified 08/03/24 14:32
lisinopril Allergy Unknown Unknown Verified 08/03/24 14:32
omeprazole Allergy Unknown Unknown Verified 08/03/24 14:32
�Medication �Instructions �Recorded �Confirmed �Type
metoprolol tartrate 50 mg tablet 50 mg PO BID 11/22/14 08/03/24 History
aspirin 81 mg tablet,delayed 81 mg PO HS 08/14/15 08/03/24 History
release
benzonatate 100 mg capsule 100 mg PO BID 12/30/23 08/03/24 History
glimepiride 2 mg tablet 1 mg PO DAILY 12/30/23 08/03/24 History
metformin 500 mg tablet 500 mg PO BID@0800,1400 12/30/23 08/03/24 History
rosuvastatin 10 mg tablet 10 mg PO DAILY 12/30/23 08/03/24 History
albuterol sulfate 90 mcg/actuation 1 puff inhalation Q4HPRN PRN SOB 01/02/24 08/03/24 History
aerosol inhaler
valsartan 160 mg tablet 160 mg PO BID 01/06/24 08/03/24 History
guaifenesin 100 mg/5 mL oral liquid 200 mg PO Q4HPRN PRN chest 01/17/24 08/03/24 History
congestion
cyanocobalamin (vitamin B-12) 1,000 mcg PO HS 08/03/24 08/03/24 History
1,000 mcg tablet
folic acid 1 mg tablet 1 mg PO DAILY 08/03/24 08/03/24 History
metformin 500 mg tablet 1,000 mg PO HS 08/03/24 08/03/24 History
pantoprazole 40 mg tablet,delayed 40 mg PO BID 08/03/24 08/03/24 History
release
umeclidinium 62.5 mcg-vilanterol 1 inh inhalation R DAILY 08/03/24 08/03/24 History
25 mcg/actuation powdr for
inhalation (Anoro Ellipta)
Review of Systems
-
History Source: Patient
Constitutional: No Symptoms
Respiratory: Trouble Breathing (With ambulation, stairs)
Cardiac: Other (Mild bilateral lower extremity edema)
Musculoskeletal: No Symptoms
Skin: No Symptoms
Neurological: No Symptoms
Physical Exam
Vital Signs
Temp Pulse Resp BP Pulse Ox
97.5 F 72 18 139/64 95
08/04/24 08:13 08/04/24 08:13 08/04/24 08:13 08/04/24 08:13 08/04/24 08:13
Lab Results
08/04/24 08:12
08/04/24 08:12
Troponin I 0.043 ng/ml H* 08/04/24 08:12
Ccg-J-Gzcdvwypzjh Pept 4520 pg/ml 08/03/24 14:38
Physical Exam
General: Well Developed and No Apparent Distress
HEENT: Normocephalic, Anicteric and Moist Mucous Membranes
Respiratory: Clear (Decreased right base)
Cardiac: S1/S2, Regular Rhythm and Peripheral Edema (Mild bilateral ankle edema)
Breast: Deferred by me
GI: Soft and Non Distended
Musculoskeletal: Edema (Mild bilateral lower extremity edema)
Skin: Warm and Dry
Neuro: AO x 3
Impression / Plan
-
Acute heart failure with midrange EF:
-Echo from July 27, 2024 with reduced EF of 45 to 50%. It had previously been 50 to 55% in October 2023.
-Patient has been receiving chemotherapy.
-Lasix was attempted as an outpatient but patient continued to have shortness of breath.
-Will initiate GDMT as BP tolerates after diuresis. ( intolerant to core fin the past
-Continue IV Lasix given in ER, transitioned to oral lasix this am , monitor response. If blood products needed may need IV dose .
-Hemoglobin on admission was 7.6 as well. In December 2023 it was 12
CAD:
-Prior cardiac catheterization from December 2023 with stable CAD and patent stents.
-Continue medical therapy.
-troponin 0.041,0.039, 0.043, likely r/t anemia and acute CHF
VT:
-Noted previously on CAM as an outpatient also with heart block.
-ICD in place
Anemia:
-Primary team to address.
-Patient receiving chemotherapy for adenocarcinoma of the lung Dr. Vo [facility]
Subjective: Pt feels breathing improved and edema improved with IV diuresis
Data Reviewed
-
EKG: Tracing Personally Visualized and interpreted
Medical Tests (Nuc Med, Echo etc): Report Reviewed by me (echo 07/27/24 Mildly reduced left ventricular systolic function. Left ventricular ejection fraction is 45-50% by visual assessment. Basal - mid inferior and inferolateral wall hypokinesis.
Mild-moderate mitral regurgitation. Compared to the prior study on 11/11/2023, hypokinesis in the basal to m) and Other ([facility] 01/06/24 1. Mildly elevated left heart filling pressures with normal right heart filling pressures and mild pulmonary
hypertension 2. Inferobasal akinesis with otherwise normal wall motion with EF 51%. The inferior wall motion abnormality was present on the prior study from 2013 3. Mild resid)
Labs: Labs Reviewed by me and Discussed with Physician
--- NOTE | 2024-08-04 09:38 | W.PN.HOSP.TC ---
Today's Communication/Plan
-
see outlined plan
Assessment / Plan
Assessment / Plan
Assessment:
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
- CXR: Small right pleural effusion. Cannot exclude adjacent parenchymal opacity, such as atelectasis or pneumonia. Generalized prominence of bronchovascular markings. Sclerotic osseous metastatic lesions.
- Echo from July 27, 2024 with reduced EF of 45 to 50%. It had previously been 50 to 55% in October 2023.
- Patient has been receiving chemotherapy.
- Lasix was attempted as an outpatient but patient continued to have shortness of breath.
- continue IV Lasix 20mg BID - requires intensive monitoring of I/OS, weights, lytes
CAD:
- Prior cardiac catheterization from December 2023 with stable CAD and patent stents.
- continue medical therapy
- troponin relative stable at .043 - nonischemic myocardial injury from anemia/acute CHF.
VT:
- Noted previously on CAM as an outpatient also with heart block.
- ICD in place
Anemia, acute on chronic
- no evidence of bleeding
- check anemia indices
- 1 unit PRBCs
- follow Hb
DVT ppx: SCDS
Code: Full
Anticipated Discharge: > 48 hours
Subjective/Interval History
-
Date of Service: August 04, 2024
reports some SOB this morning
weight down 1 kg
agreeable to 1 unit PRBC
Objective Data
-
Labs:
Laboratory Results
08/04/24
08:12
WBC 5.6
Hgb 7.9 L
Hct 25.0 L
Plt Count 209
Sodium 143
Potassium 3.5
Chloride 104
Carbon Dioxide 30
BUN 14
Creatinine 1.0
Glucose 90
Calcium 8.1 L
Total Bilirubin 0.6
AST 40
ALT 21
Alkaline Phosphatase 210 H
Vital Signs:
Vital Signs
Temp Pulse Resp BP Pulse Ox
97.5 F 72 18 139/64 95
08/04/24 08:13 08/04/24 08:13 08/04/24 08:13 08/04/24 08:13 08/04/24 08:13
I&O
08/03/24 08/04/24 08/05/24
06:59 06:59 06:59
Output Total 300 / 300
Balance -300 / -300
Physical Exam
-
General: No Apparent Distress
HEENT: Normocephalic and Atraumatic
Respiratory: Crackles and Decreased Breath Sounds
Cardiac: Regular Rhythm and S1/S2
Musculoskeletal: Edema, Right Lower Extrem and Edema, Left Lower Extrem
Neuro: AO x 3
Psych: Calm
Data Reviewed
-
Total Time Spent with Patient (in minutes): 51
Labs: Labs Reviewed by me
[2024-08-04 10:49] LABS: Glycohemoglobin (HgbA1c) 4.9 % (4.0-5.6)
[2024-08-04 12:23] LABS: Glucose - Point of Care 105 mg/dl (70-99)
--- NOTE | 2024-08-04 12:39 | PTOTSP ---
Patient presents all functional mobility at an independent level today. He was able to negotiate stairs reciprocally and complete a curb step. Patient notes that he has been independently getting up and accessing the bathroom recently. patient
has no concerns regarding returning home. At this time, patient has no skilled needs while in house. If this situation changes, please reconsult. At this time, will sign off.
--- NOTE | 2024-08-04 12:52 | W.PN.UPDATE ---
Update Note
Progress Note Update
PLEASE DISREGARD THIS ADDENDUM NOTE; IT IS WRONG ENTRY
<del>Progress</del> <del>Note</del> <del>Update</del>
<del>-:</del>
<del>This</del> <del>note</del> <del>serves</del> <del>as</del> <del>an</del> <del>addendum</del> <del>to</del> <del>the</del> <del>H&P</del> <del>by</del> <del>ventilated rib fitter</del> <del>SAILAJA</del> <del>Lori</del> <del>DIETERICK</del>
<del>HPI</del>
<del>81M</del> <del>HX</del> <del>CAD,</del> <del>CHF,</del> <del>A-Fib</del> <del>and</del> <del>CKD</del> <del>seen</del> <del>at</del> <del>ER:</del>
<del>-</del> <del>increased</del> <del>shortness</del> <del>of</del> <del>breath</del> <del>on</del> <del>exertion</del> <del>over</del> <del>the</del> <del>past</del> <del>several</del> <del>days.</del>
<del>-</del> <del>seen</del> <del>at</del> <del>PCP</del> <del>in</del> <del>the</del> <del>office</del> <del>today</del> <del>who</del> <del>referred</del> <del>him</del> <del>to</del> <del>the</del> <del>emergency</del> <del>department</del>
<del>due</del> <del>to</del> <del>low</del> <del>POx</del>
<del>-</del> <del>In</del> <del>triage</del> <del>his</del> <del>pulse</del> <del>ox</del> <del>was</del> <del>documented</del> <del>as</del> <del>82%</del> <del>on</del> <del>room</del> <del>air.</del>
<del>-</del> <del>reports</del> <del>increased</del> <del>lower</del> <del>extremity</del> <del>edema.</del>
<del>-</del> <del>does</del> <del>not</del> <del>weight</del> <del>himself</del> <del>on</del> <del>a</del> <del>regular</del> <del>basis.</del>
<del>ROS</del>
<del>denies</del> <del>chest</del> <del>pains</del> <del>or</del> <del>palpitations.</del>
<del>Vital</del> <del>Signs</del>
<del>Temp</del> <del>Pulse</del> <del>Resp</del> <del>BP</del> <del>Pulse</del> <del>Ox</del>
<del>98.2</del> <del>F</del> <del>70</del> <del>11</del> <del>180/74</del> <del>94</del>
<del>08/03/24</del> <del>14:30</del> <del>08/03/24</del> <del>18:30</del> <del>08/03/24</del> <del>18:30</del> <del>08/03/24</del> <del>17:00</del> <del>08/03/24</del> <del>17:00</del>
<del>PE</del>
<del>General:</del> <del>Comfortable</del>
<del>HEENT:</del> <del>Moist</del> <del>mucous</del> <del>membranes</del> <del>and</del> <del>wearing</del> <del>NC</del> <del>O2</del>
<del>Respiratory:</del> <del>diffuse</del> <del>rales</del>
<del>Cardiac:</del> <del>S1/S2,</del> <del>Regular</del> <del>Rhythm</del> <del>and</del> <del>Murmur</del>
<del>GI:</del> <del>Soft</del> <del>and</del> <del>Non</del> <del>Tender</del>
<del>Rectal:</del> <del>Deferred</del> <del>by</del> <del>Provider</del>
<del>Musculoskeletal:</del> <del>+3</del> <del>pitting</del> <del>edema</del> <del>bilateral</del> <del>Saira</del>
<del>Skin:</del> <del>Warm</del> <del>and</del> <del>Dry</del>
<del>Neuro:</del> <del>Awake,</del> <del>Alert,</del> <del>Oriented</del> <del>and</del> <del>Nonfocal/grossly</del> <del>intact</del>
<del>Psych:</del> <del>Calm</del>
<del>Data</del>
<del>Abnormal</del> <del>Lab</del> <del>Results</del>
<del>12/06/24</del>
<del>14:38</del>
<del>RBC</del> <del>2.42</del> <del>L</del>
<del>Hgb</del> <del>7.6</del> <del>L</del>
<del>Hct</del> <del>24.6</del> <del>L</del>
<del>MCV</del> <del>101.7</del> <del>H</del>
<del>MCH</del> <del>31.4</del> <del>H</del>
<del>MCHC</del> <del>30.9</del> <del>L</del>
<del>RDW</del> <del>28.0</del> <del>H</del>
<del>Abs</del> <del>Immat</del> <del>Gran</del> <del>(auto)</del> <del>0.2</del> <del>H</del>
<del>Absolute</del> <del>Lymphs</del> <del>(auto)</del> <del>0.7</del> <del>L</del>
<del>Absolute</del> <del>Monos</del> <del>(auto)</del> <del>1.1</del> <del>H</del>
<del>Immature</del> <del>Gran</del> <del>%</del> <del>1.8</del> <del>H</del>
<del>Neutrophils</del> <del>%</del> <del>76.7</del> <del>H</del>
<del>Lymphocytes</del> <del>%</del> <del>7.8</del> <del>L</del>
<del>Monocytes</del> <del>%</del> <del>12.9</del> <del>H</del>
<del>Glucose</del> <del>65</del> <del>L</del>
<del>Alkaline</del> <del>Phosphatase</del> <del>193</del> <del>H</del>
<del>Troponin</del> <del>I</del> <del>0.035</del> <del>H*</del>
<del>Total</del> <del>Protein</del> <del>5.9</del> <del>L</del>
<del>ASSESSMENT</del> <del>&</del> <del>PLAN</del>
<del>Acute</del> <del>Hypoxic</del> <del>RI</del> <del>secondary</del> <del>to</del> <del>Acute</del> <del>HF</del>
<del>-</del> <del>supplemental</del> <del>O2</del> <del>to</del> <del>keep</del> <del>POx</del> <del>></del> <del>93</del>
<del>Acute</del> <del>on</del> <del>Chronic</del> <del>HFrEF</del> <del>:</del> <del>DIANE</del> <del></del> <del>2024:</del> <del>EF</del> <del>30-35%</del>
<del>-</del> <del>cont.</del> <del>Lasix</del> <del>40mg</del> <del>IV</del> <del>Daily</del>
<del>-</del> <del>trend</del> <del>Is&Os</del> <del>ad</del> <del>Daily</del> <del>Weights</del>
<del>-</del> <del>DCA</del> <del>card</del> <del>consulted</del>
<del>Elevated</del> <del>Troponin</del>
<del>Suspect</del> <del>NIMI</del>
<del>-</del> <del>trend</del> <del>troponin</del>
<del>CAD</del> <del>s/p</del> <del>CABG</del>
<del>-</del> <del>cont.</del> <del>atorvastatin</del>
<del>-</del> <del>cont</del> <del>isosorbide</del> <del>mononitrate</del>
<del>Paroxysmal</del> <del>AF/</del> <del>A</del> <del>Fluter</del>
<del>-</del> <del>cont.</del> <del>DOCTOR PODIATRIC MEDICINE</del> <del>amiodarone</del>
<del>-</del> <del>cont</del> <del>DOCTOR PODIATRIC MEDICINE</del> <del>Coreg</del> <del>for</del> <del>rate</del> <del>control</del>
<del>-</del> <del>cont.</del> <del>Eliquis</del>
<del>Essential</del> <del>HTN</del>
<del>-</del> <del>cont</del> <del>DOCTOR PODIATRIC MEDICINE</del> <del>Coreg</del> <del>and</del> <del>Hydralazine</del> <del>with</del> <del>hold</del> <del>parameters</del>
<del>DMT2</del>
<del>-</del> <del>cont</del> <del>Glipizide</del>
<del>-</del> <del>add</del> <del>ISS</del> <del>low</del>
<del>CKD</del> <del>3b</del>
<del>-</del> <del>trend</del> <del>Cr</del> <del>on</del> <del>diuretics</del>
<del>COPD,</del> <del>no</del> <del>acute</del> <del>exacerbation</del>
<del>-</del> <del>cont.</del> <del>albuterol</del> <del>PRN</del>
<del>Hypothyroidism</del>
<del>-</del> <del>on</del> <del>levothyroxine</del>
<del>Hx</del> <del>Abdominal</del> <del>Aortic</del> <del>Aneurysm</del> <del>s/p</del> <del>Endovascular</del> <del>Repair</del>
<del>DVT</del> <del>proph:</del> <del>Eliquis</del>
<del>Code</del> <del>Status:</del> <del>DNR</del>
<del>IP</del> <del>TLM</del>
<del>Dictated</del> <del>By:</del> <del>Htay</del> <del>MD,Piero</del>
<del>Dictated</del> <del>Date</del> <del>&</del> <del>Time:</del> <del>08/03/24</del> <del>1850</del>
<del>Co-Signer:</del>
<del>Co-Sign</del> <del>Date</del> <del>&</del> <del>Time:</del>
<del>Signed</del> <del>By:</del> <del>Htay</del> <del>MD,Piero</del>
<del>Signed</del> <del>Date</del> <del>&</del> <del>Time:</del> <del>08/03/24</del> <del>1852</del>
<del><<Signature</del> <del>on</del> <del>File>></del>
<del>Dictation</del> <del>Date/Time:</del> <del>08/03/24</del> <del>1850</del>
<del>Yarn Skeins Examiner</del> <del>Date/Time:</del> <del>08/03/24</del> <del>1850</del>
<del>Transcribed</del> <del>By:</del> <del>HTAYSO</del>
<del>cc:</del>
[2024-08-04 13:40] LABS: Iron 59 ug/dl (49-181)
[2024-08-04 13:49] LABS: Percent Saturation 22 % (20-50); Total Iron Binding Capacity 266 ug/dl (261-462)
[2024-08-04 14:55] LABS: Folate > 20.0 ng/ml (2.76-20); Vitamin B12 > 1000 pg/ml (239-931)
--- NOTE | 2024-08-04 15:02 | CM ---
Addendum entered by Susu Bose 08/04/24 15:08:
edit* Anticipates dc to home with no needs
Original Note:
Initial assessment completed with pt at bedside.
Pt is a 79yr old male admitted with heart failure.
At baseline, pt lives with his in a 2 level townhouse with 0ste; 2nd floor bed/bath and 1st floor half bath
Pt is indep prior and driving. Pt has a RW, Cane, and Shower Bars.
No history with VN and SNF.
Pt does have chemo infusions every 3wks. Pt says that it does not have a debilitating effect on him, but that his is supportive the days after his treatments.
Will have 1 unit of PRBC today with f/u Hgb
PCP; Ira Coleman
Pharm; [facility] and [facility] for 90day supply
PLAN; dc to home with
[2024-08-04 17:28] LABS: Glucose - Point of Care 159 mg/dl (70-99)
[2024-08-04] MEDS: NOVOLOG FLEXPEN-LOW RESISTANCE 1 UNITS SC (18:22)
[2024-08-04 21:19] LABS: Glucose - Point of Care 182 mg/dl (70-99)
[2024-08-04] MEDS: ASPIR LOW (ENTERIC COATED) 81 MG PO (21:20)
[2024-08-05 01:27] VITALS: BP 128/63
[2024-08-05 06:00] VITALS: BMI 23.6
[2024-08-05 07:10] VITALS: BP 145/66
[2024-08-05 07:15] LABS: Glucose - Point of Care 123 mg/dl (70-99)
[2024-08-05] MEDS: NOVOLOG FLEXPEN-LOW RESISTANCE SC (07:27)
[2024-08-05 08:21] LABS: Blood Urea Nitrogen 18 mg/dl (9-20); Calcium 8.3 mg/dl (8.4-10.2); Carbon Dioxide 28 mmol/L (22-30); Chloride 103 mmol/L (98-107); Estimated Creatinine Clearance 70 ml/min; Glucose 124 mg/dl (70-99); Magnesium 1.8 mg/dl (1.6-2.3); Potassium 3.6 mmol/L (3.5-5.1); Sodium 140 mmol/L (135-145); eGFR > 60.00
[2024-08-05 08:33] LABS: Hematocrit 29.1 % (39.0-52.0)
[2024-08-05 08:35] LABS: Hemoglobin 9.2 g/dL (13.0-18.0)
[2024-08-05] MEDS: LASIX 20 MG PO (09:13)
[2024-08-05] MEDS: FOLVITE 1 MG PO (09:13)
[2024-08-05] MEDS: LOPRESSOR 50 MG PO (09:13)
[2024-08-05] MEDS: PROTONIX 40 MG PO (09:13)
[2024-08-05] MEDS: CRESTOR 10 MG PO (09:13)
--- NOTE | 2024-08-05 10:32 | W.PN.HOSP.TC ---
Today's Communication/Plan
-
dc to home
Assessment / Plan
Assessment / Plan
Assessment:
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
- CXR: Small right pleural effusion. Cannot exclude adjacent parenchymal opacity, such as atelectasis or pneumonia. Generalized prominence of bronchovascular markings. Sclerotic osseous metastatic lesions.
- Echo from July 27, 2024 with reduced EF of 45 to 50%. It had previously been 50 to 55% in October 2023.
- Patient has been receiving chemotherapy.
- Lasix was attempted as an outpatient but patient continued to have shortness of breath.
- dc on Lasix 20mg BID
CAD:
- Prior cardiac catheterization from December 2023 with stable CAD and patent stents.
- continue medical therapy
- troponin relative stable at .043 - nonischemic myocardial injury from anemia/acute CHF.
VT:
- Noted previously on CAM as an outpatient also with heart block.
- ICD in place
Anemia, acute on chronic
- no evidence of bleeding
- anemi indices ok
- s/p 1 unit PRBC, Hb 9.2
DVT ppx: SCDS
Code: Full
More than 30 minutes spent in discharge including
Final examination of the patient
Summarizing hospital stay
Instructions for continuing care to all relevant caregivers
Preparation of discharge records, prescriptions, and referral forms
Total time spent (in minutes): 41
Anticipated Discharge: Today
Subjective/Interval History
-
Date of Service: August 05, 2024
denies sob or chest pain
ambulating well
Objective Data
-
Labs:
Laboratory Results
08/05/24 08/05/24
07:44 07:58
Hgb 9.2 L
Hct 29.1 L
Sodium 140
Potassium 3.6
Chloride 103
Carbon Dioxide 28
BUN 18
Creatinine 0.8
Glucose 124 H
Calcium 8.3 L
Vital Signs:
Vital Signs
Temp Pulse Resp BP Pulse Ox
97.4 F 73 18 145/66 95
08/05/24 07:10 08/05/24 07:10 08/05/24 07:10 08/05/24 07:10 08/05/24 07:10
I&O
08/04/24 08/05/24 08/06/24
06:59 06:59 06:59
Intake Total 970 / 970
Output Total 300 / 300
Balance -300 / -300 970 / 970
Physical Exam
-
General: No Apparent Distress
HEENT: Normocephalic and Atraumatic
Respiratory: Negative Wheezes
Cardiac: Regular Rhythm and S1/S2
GI: Soft and Nontender
Genito-urinary: No Costovertebral Tender
Musculoskeletal: No Edema
Neuro: AO x 3
Hematologic / Lymphatic: No Lymphadenopathy
Psych: Calm
Data Reviewed
-
Total Time Spent with Patient (in minutes): 41
Labs: Labs Reviewed by me
--- NOTE | 2024-08-05 10:42 | W.DS.TRANS ---
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
-
Discharge Instructions:
Discharge Diagnosis/Procedures acute CHF, symptomatic anemia
Diet 2 Gram Sodium,Diabetic, Carb Controlled
Activity As tolerated
Bathing Restrictions None
Instructions:
Stand-Alone Forms:
Changes to Home Medications: No
Discharge Medications:
DC Medications w/original date entered in [place]
metoprolol tartrate 50 mg tablet 50 mg PO BID 11/22/14
aspirin 81 mg tablet,delayed release 81 mg PO HS 08/14/15
benzonatate 100 mg capsule 100 mg PO BID 12/30/23
glimepiride 2 mg tablet 1 mg PO DAILY 12/30/23
metformin 500 mg tablet 500 mg PO BID@0800,1400 12/30/23
rosuvastatin 10 mg tablet 10 mg PO DAILY 12/30/23
albuterol sulfate 90 mcg/actuation aerosol inhaler 1 puff inhalation Q4HPRN PRN SOB 01/02/24
valsartan 160 mg tablet 160 mg PO BID 01/06/24
guaifenesin 100 mg/5 mL oral liquid 200 mg PO Q4HPRN PRN chest congestion 01/17/24
cyanocobalamin (vitamin B-12) 1,000 mcg tablet 1,000 mcg PO HS 08/03/24
folic acid 1 mg tablet 1 mg PO DAILY 08/03/24
metformin 500 mg tablet 1,000 mg PO HS 08/03/24
pantoprazole 40 mg tablet,delayed release 40 mg PO BID 08/03/24
umeclidinium 62.5 mcg-vilanterol 25 mcg/actuation powdr for inhalation (Anoro Ellipta) 1 inh inhalation R DAILY 08/03/24
furosemide 20 mg tablet 20 mg PO BID AT 0800,1600 #60 tabs 08/05/24
Home Medication Changes
Pending Results: No
Total time spent discharging patient (in min): 41
[2024-08-05 12:00] VITALS: BP 138/60
--- NOTE | 2024-08-05 14:52 | CM ---
Pt for dc today.
No needs or transportation needs identified.
IMM issued Verbally and put on chart.
== END 2024-08-05 12:21 | disposition home or self-care (01) | DRG 291 ==
LOC: 4 WEST ACU 19:10
PROVIDERS: Registered Nurse; ADMITTING PHYSICIAN Internal Medicine; ATTENDING PHYSICIAN Internal Medicine; CONSULT PHYSICIAN Internal Medicine Cardiovascular Disease; EMERGENCY PHYSICIAN Emergency Medicine; FAMILY PHYSICIAN Family Medicine
PROC: 30233N1 Transfusion of Nonautologous Red Blood Cells into Peripheral Vein, Percutaneous Approach (ICD-10-PCS; 2024-08-04)
DX: I13.0 Hypertensive heart and chronic kidney disease with heart failure and stage 1 through stage 4 chronic kidney disease, or unspecified chronic kidney disease (principal); I50.23 Acute on chronic systolic (congestive) heart failure; C34.90 Malignant neoplasm of unspecified part of unspecified bronchus or lung; N17.9 Acute kidney failure, unspecified; I45.2 Bifascicular block; N18.32 Chronic kidney disease, stage 3b; E78.00 Pure hypercholesterolemia, unspecified; J44.89 Other specified chronic obstructive pulmonary disease; I25.10 Atherosclerotic heart disease of native coronary artery without angina pectoris; K21.9 Gastro-esophageal reflux disease without esophagitis; Z87.891 Personal history of nicotine dependence; Z88.8 Allergy status to other drugs, medicaments and biological substances; Z95.810 Presence of automatic (implantable) cardiac defibrillator; E11.22 Type 2 diabetes mellitus with diabetic chronic kidney disease; E11.649 Type 2 diabetes mellitus with hypoglycemia without coma; I25.2 Old myocardial infarction; E03.9 Hypothyroidism, unspecified; I44.30 Unspecified atrioventricular block; I48.0 Paroxysmal atrial fibrillation; R09.02 Hypoxemia; Z66 Do not resuscitate; Z79.84 Long term (current) use of oral hypoglycemic drugs; Z79.899 Other long term (current) drug therapy; Z86.79 Personal history of other diseases of the circulatory system; Z95.1 Presence of aortocoronary bypass graft; Z95.5 Presence of coronary angioplasty implant and graft; Z79.82 Long term (current) use of aspirin; D63.0 Anemia in neoplastic disease
CPT/HCPCS: 71046; 80048; 80053; 80061; 82248; 82607; 82728; 82746; 82962; 83036; 83540; 83550; 83735; 83880; 84484; 85014; 85018; 85025; 85027; 86850; 86900; 86901; 86920; 96374; 97161; 97165; 99285; P9016

== ENCOUNTER → 2024-09-07 09:13 | Outpatient (REF) | payer OTHER, SELFPAY | LOC: RCS 09:13 | PROVIDERS: ATTENDING PHYSICIAN Internal Medicine; FAMILY PHYSICIAN Family Medicine | DX: I50.22 Chronic systolic (congestive) heart failure (principal); I25.10 Atherosclerotic heart disease of native coronary artery without angina pectoris; C34.91 Malignant neoplasm of unspecified part of right bronchus or lung | CPT/HCPCS: 93306; 93356 ==

== ENCOUNTER 2024-09-10 15:26 | Inpatient (IN) | payer OTHER, SELFPAY ==
[2024-09-10] VITALS (22 sets, daily range): BP systolic 83–134; BP diastolic 39–82; BMI 25.6; BMI 23.8
[2024-09-10 09:55] LABS: ALT (SGPT) 20 U/L (0-50); AST (SGOT) 41 U/L (17-59); Albumin 3.4 g/dl (3.5-5.0); Alkaline Phosphatase 130 U/L (38-126); Blood Urea Nitrogen 35 mg/dl (9-20); Calcium 6.7 mg/dl (8.4-10.2); Carbon Dioxide 19 mmol/L (22-30); Chloride 106 mmol/L (98-107); Glucose 91 mg/dl (70-99); Magnesium 1.7 mg/dl (1.6-2.3); Potassium 4.5 mmol/L (3.5-5.1); Sodium 137 mmol/L (135-145); Total Bilirubin 1.4 mg/dl (0.2-1.3); Total Protein 5.7 g/dl (6.3-8.2); eGFR 35.88
[2024-09-10 10:02] LABS: Hematocrit 20.1 % (39.0-52.0); Hemoglobin 6.7 g/dL (13.0-18.0); Mean Corp Hgb Conc. 33.3 g/dL (33.0-37.0); Mean Corpuscular Hgb 33.5 pg (27.0-31.0); Mean Corpuscular Volume 100.5 fL (80.0-94.0); Mean Platelet Volume 11.9 fL (7.4-10.4); Platelet Count 36 10^3/uL (130-400); Red Cell Dist. Width 16.7 % (11.5-14.5); White Blood Cell Count 1.3 10^3/uL (4.8-10.8)
--- NOTE | 2024-09-10 10:26 | ED.GENMED ---
History of Present Illness
General
Chief Complaint: Breathing Problem
Source: patient and spouse
Exam Limitations: none
Time Seen by Provider: 09/10/24 08:53
History of Present Illness
History of Present Illness:
79-year-old male with a history of metastatic lung cancer who presents with weakness, fatigue and today was complaining of shortness of breath. He has been dealing with low blood sugar for the last few days. They held his Entresto. His last
chemotherapy was on August 30. The patient denies melena or hematochezia. He states he currently feels 'fine'. During history taking he does not feel short of breath but did complain of feeling short of breath when he woke up this morning and had
difficulty getting out of bed. He does have metastatic disease to the left hip and is scheduled a CT of the hip. He recently had an echocardiogram this past week. His cancer care is at [facility]. His health systems analyst is Dr. Nazario. Spouse states that
she had a difficult time getting him down the steps because of weakness but he had complained of shortness of breath today. She also adds that it seems like he does not tolerate chemo over time. also adds that with the eating the patient
seems to be coughing stuff up.
Past History
Past History
ED Past Medical History: CAD, Cancer (Metastatic lung cancer), COPD, GERD, HTN, Hypercholesterolemia, NIDDM and NM
ED Past Surgical History: Cardiac (Pacer defibrillator) and Cholecystectomy
Social History
Tobacco: Former smoker
Alcohol: None
Drug: None
Personal:
Living: with family
Employment: Employed
Family History
Family History: Other (Noncontributory)
Phy Exam
Physical Exam
Physical Exam:
CONSTITUTIONAL Patient alert and oriented to person, place and time. Well-appearing. Vital signs reviewed.
HEAD atraumatic, normocephalic.
EYES eyelids normal to inspection, Extraocular muscles intact, Conjunctiva normal, Sclera normal.
NECK normal range of motion, Trachea midline, no jugular venous distention.
RESPIRATORY CHEST No respiratory distress noted, Chest expansion equal, Bilateral breath sounds clear.
CARDIOVASCULAR regular rate and rhythm, Heart sounds normal.
ABDOMEN abdomen nontender, Bowel sounds normal. No distention.
BACK normal inspection, no obvious deformities
UPPER EXTREMITY range of motion normal, Motor strength normal, no cyanosis, no edema.
LOWER EXTREMITY range of motion normal, Motor strength normal, no cyanosis, no edema.
NEURO Speech normal, No focal motor deficits, Philip coma scale 15, Memory normal, Cranial Nerves intact to screening exam.
SKIN skin warm, dry, and normal in color.
Scores
Heart Failure Risk
Heart Failure Risk Score: Not Applicable
Course
Orders/Labs/Results
Orders:
Orders
09/10/24 Breakfast
Cholesterol Lowering
At Your Request: Limited, Material Handling Equipment Stevedore Required
Cholesterol Lowering: Sodium, 2 Gram
09/10/24 08:25
EKG [Electrocardiogram (*1)] Urgent
Reason for Study: Shortness of Breath
09/10/24 08:26
EKG- Treatment ONCE
09/10/24 09:14
CR Chest - 2 Views Urgent
Comment:
Reason For Exam: sob
09/10/24 09:32
Complete Blood Count/With Diff Urgent
Comprehensive Metabolic Panel Urgent
Magnesium Urgent
Manual Differential Urgent
09/10/24 09:56
NT-proBNP Urgent
Troponin I Urgent
09/10/24 10:24
* Blood Bank Products Urgent
Blood Bank Products: *Packed RBC Leuko(PRBC's)
Quantity: 2
Transfuse Today: Yes
Reason: Anemia
IV Insert/Care/Rem.- Treatment PRN
09/10/24 10:25
Add On- LAB Urgent
Tests Added?: Mg
09/10/24 10:30
Calcium Gluconate 2 gram/100mL [Calcium Gluconate] 2 gram in 100 ml IV ONCE
09/10/24 11:15
Type+Screen Urgent
BBK Wristband Number:
09/10/24 12:57
Add On- LAB Routine
Tests Added?: probnp
Speech Therapy Eval & Treat Routine
09/10/24 13:40
Admit/Transfer Patient As Directed
Co-Sign Provider:
Level of Care: Inpatient admission
Assign to:: Telemetry
Physician / Group: tri
Diagnosis: anemia
Reason for Telemetry: Other
Other Reason for Telemetry: hypotension
Date to Stop Telemetry: 09/12/24
Time to Stop Telemetry: 11:00
Reason for Hospitalization: anemia
Expected length of stay greater than two midnights?: Yes
ELOS- Estimated Length of Stay in days: 3
I certify the patient meets the requirements for IP care: Yes
PRN Pain Medication Management As Directed
May give lesser potent ordered pain med per pt: Yes
preference::
Protocol:: Medication orders for pain may be administered in a
manner that supports deferring to patient preference
when the pt is:
- Requesting an ordered lesser potent pain medication.
Least to most potent pain medications are defined
as: acetaminophen < NSAID < tramadol < opioids
(morphine, oxycodone, hydromorphone).
- Requesting a lesser dose of the same medication IF
ORDERED.
- Requesting a less intrusive route of administration
if both routes are prescribed by the provider (PO <
IV).
09/10/24 13:45
Code Status As Directed
Resuscitation Status: Full Code
09/10/24 13:57
COVID-19 Antigen Stat
Source: Nasal Swab
Influenza A+B Rapid Molecular Stat
ELMA Source: Nasal Swab
Specimen Description:
09/10/24 16:58
Ionized Calcium Routine
09/10/24 20:26
Acetaminophen [Tylenol] 650 mg PO Q4HPRN PRN
Albuterol [ProAIR HFA INHALER] 1 puff INH R Q4HPRN PRN
Bisacodyl [Dulcolax] 10 mg RECTAL [id number] PRN
Docusate W/Senna [Senokot-S] 1 tablet PO BIDPRN PRN
Oxycodone [Roxicodone] 5 mg PO Q6HPRN PRN
Pantoprazole [Protonix] 40 mg PO BID
Polyethylene Glycol Powder [Miralax] 17 grams PO DAILYPRN PRN
09/10/24 20:26
HEMATOLOGY CONSULT Routine
Consulting Provider: Yulissa Saucedo
Was physician already notified: Yes
Activity As Directed
Activity Level: As Tolerated
Intake/ Output As Directed
Frequency: Per unit guidelines
Pneumatic Compression Sleeves As Directed
Type: Knee high
Vital Signs As Directed
Frequency: Per unit guidelines
Weight As Directed
Frequency: Daily
DX Deep Vein Thrombosis Video Routine
09/10/24 22:00
Aspirin Low Dose EC [Aspir Low (Enteric Coated)] 81 mg PO HS
Cyanocobalamin [Vitamin B-12] 1,000 mcg PO HS
09/11/24 05:49
Basic Metabolic Panel IN AM
Complete Blood Count/No Diff IN AM
Troponin I Q6H
09/11/24 08:00
Rosuvastatin Calcium [Crestor] 10 mg PO DAILY
09/12/24 05:49
Basic Metabolic Panel IN AM
09/12/24 11:00
DC Protocol for Telemetry ONCE
09/13/24 06:00
Basic Metabolic Panel IN AM
09/14/24 06:00
Basic Metabolic Panel IN AM
Abnormal Lab Results
09/10/24 09/10/24 09/10/24
09:32 09:56 11:15
WBC 1.3 L* 10^3/uL
(4.8-10.8)
RBC 2.00 L 10^6/uL
(4.70-6.10)
Hgb 6.7 L* g/dL
(13.0-18.0)
Hct 20.1 L* %
(39.0-52.0)
MCV 100.5 H fL
(80.0-94.0)
MCH 33.5 H pg
(27.0-31.0)
RDW 16.7 H %
(11.5-14.5)
Plt Count 36 L 10^3/uL
(130-400)
MPV 11.9 H fL
(7.4-10.4)
Abs Neuts (Manual) 0.8 L* 10^3/uL
(1.4-6.5)
Band Neutrophils 4 H %
(0-3)
Monocytes (Manual) 10 H %
(2-9)
Carbon Dioxide 19 L mmol/L
(22-30)
BUN 35 H mg/dl
(9-20)
Creatinine 1.9 H mg/dL
(0.7-1.3)
Calcium 6.7 L* mg/dl
(8.4-10.2)
Total Bilirubin 1.4 H mg/dl
(0.2-1.3)
Alkaline Phosphatase 130 H U/L
(38-126)
Troponin I 0.073 H* ng/ml
Total Protein 5.7 L g/dl
(6.3-8.2)
Albumin 3.4 L g/dl
(3.5-5.0)
Crossmatch IS Only See Detail
09/10/24 09:32
09/10/24 09:32
Vital Signs
Initial and Last Documented VS:
Initial Vital Signs
Temp Pulse Resp BP Pulse Ox
97.8 F 84 16 134/43 94
09/10/24 08:26 09/10/24 08:26 09/10/24 08:26 09/10/24 08:26 09/10/24 08:26
Last Documented Vital Signs
Temp Pulse Resp BP Pulse Ox
97.4 F 72 14 135/61 97
09/12/24 07:30 09/12/24 07:39 09/12/24 07:39 09/12/24 07:30 09/12/24 07:30
MDM/Problems Addressed
Differential Diagnosis Includes:
COPD exacerbation, pneumonia, aspiration, congestive heart failure, anemia, electrolyte imbalance
MDM/Problems Addressed:
Hypocalcemia, acute kidney injury, symptomatic anemia, pancytopenia, thrombocytopenia, leukopenia
*Pulse Oximetry
Patient hypoxic: no
*EKG
Interpreted by ED Provider?: Yes
Interpretation: abnormal
Rhythm: ventricular paced
Ischemia: non-specific ST changes
*Dimension Stone Quarry Supervisor Interpretation
Rhythm: ventricular paced
*Critical Care Note
Total Time (30-74mins, 75-104mins- exclusive of procedures): 30 minutes
Data Reviewed
Review of Other/Old Records Reveals: Labs (Hemoglobin on August 30 reviewed on the spouse's phone shows hemoglobin in the nines), Records (Echocardiogram from last week reviewed showing no changes from previous) and Testing (CTA report reviewed on
patient's phone, no pulmonary embolism from August 30)
Source: patient and spouse
Further Testing Considered But Not Given:
Consider CTA but patient had a CTA performed on August 30 that showed no pulmonary embolism
Patient Management
Discussion with other providers: Hospitalist
Escalation/DeEscalation of care consider admission/obs:
79-year-old male with unfortunate metastatic lung cancer. Presents short of breath and weak. Found to have hemoglobin of 6.7 with pancytopenia. also with ludivina and hypocalcemia. stable in bed. admit.
ED Attending Note
-
Portions of this chart may have been created with voice recognition software.� Occasional wrong word or��sound alike� substitutions may have occurred due to the inherent limitations of voice recognition software.
Discharge Plan
Departure
Patient Disposition: Admit
Date of Disposition: 09/10/24
Time of Disposition: 10:26
Admit to: Med/Surg
Presentation/result/management discussed w/ accepting MD/DO: Hospitalist
Discharge Problem:
Pancytopenia, Symptomatic anemia, Lung cancer metastatic to bone, Acute kidney injury
Interventions
Interventions:
*Risk Screen - Suicide Last Done: 09/10/24 20:40
*General Assessment Last Done: 09/10/24 12:58
*Neglect/Abuse Screening Last Done: 09/10/24 08:26
ED- Fall Risk Assessment Last Done: 09/10/24 19:30
*ED COVID-19 Vaccine History Last Done: 09/10/24 20:40
*Nursing Disposition Last Done: 09/10/24 20:37
ED- Cardiac Assessment Last Done: 09/10/24 19:30
ED- Pulmonary Assessment Last Done: 09/10/24 19:30
Discharge Date and Time
Discharge Date/Time: 09/10/24 20:38
--- NOTE | 2024-09-10 10:33 | PHANOTE ---
med rec note- patient spouse explained that dr. white was suppose to call today 09/10/24 to see if patient continues Entresto 97/103 bid or switch back to valsartan 160mg bid and Lasix 20mg daily. last dose of Entresto was 09/05/24. patient spouse
also stop (with pcp knowing) metformin 500mg tid and glimepiride 1mg daily due to low sugar being in the mid 60 range and a1c at 5.
[2024-09-10 10:38] LABS: NT-proBNP 10500 pg/ml; Troponin I 0.073 ng/ml
[2024-09-10 10:57] LABS: Segmented Neutrophils 60 % (42-75)
[2024-09-10 10:58] LABS: Anisocytosis 1+; Band Neutrophils 4 % (0-3); Hypochromasia 1+; Lymphocytes 26 % (20-51); Monocytes 10 % (2-9); Normal RBC Morphology No; Ovalocytes 1+; Platelets Checked Yes; Polychromasia 1+
[2024-09-10 10:59] LABS: Acanthocytes FEW; Tear Drop Red Blood Cells RARE; Total Cells Counted 100
[2024-09-10 11:00] LABS: Absolute Neutrophils -Man Diff 0.8 10^3/uL (1.4-6.5)
[2024-09-10] MEDS: CALCIUM GLUCONATE 100 IV (11:24)
--- NOTE | 2024-09-10 12:53 | HPS.HSE ---
Addendum entered and electronically signed by Jigar Guerin MD 09/10/24 16:01:
I saw and examined the patient.
The MEDICAL PRACTICE ADMINISTRATOR or PA's note was reviewed and I agree with the note.
Comment: 79-year-old male with metastatic lung CA presents for weakness, fatigue, shortness of breath as of last week. Patient received chemotherapy on 30 August, subsequently feeling the symptoms 2 days afterwards. Also noted to be dealing with
lower blood pressures with Entresto and diuretics being adjusted by cardiology, and event she discontinue last Tuesday. Patient noted to be mildly hypotensive, with notable anemia hemoglobin 6.7, white count of 1.3, platelets of 36. After
discussion with family, patient had similar episode after chemotherapy during first round. Also noted to have creatinine 1.9 (baseline 0.8) also noted calcium of 6.7. Troponin 0.073, bilirubin 1.4, alk phos 130. LFTs most likely secondary to
chemotherapy although will perform right upper quadrant sono. Has lower extremity swelling, chronic. Does not appear to be in florid CHF exacerbation.
Plan�trend troponins. Most likely has symptomatic anemia causing shortness of breath, fatigue. Transfused 2 units in the ED and continue to monitor hemoglobin. Hematology/oncology evaluation. Calcium repletion. Monitor serum creatinine,
symptoms with transfusion. Hold diuresis although with proBNP of 10,000, if not improving symptoms then may have to gently diurese. Monitor serum creatinine, blood pressures with transfusion. Abdominal ultrasound for completeness sake in setting
of transaminitis.
Original Note:
Family Physician
-
Family Physician: Ira Coleman
Chief Complaint
-
sob
History of Present Illness
79-year-old male with a history of metastatic lung cancer who presents with weakness, fatigue and today was complaining of shortness of breath. He has been dealing with low blood sugar and low blood pressure for the last few days. They held his
Entresto ans Lasix since last Tuesday. His last chemotherapy was on August 30. patient gets chemo every 3 weeks at [facility]. The patient denies melena or hematochezia.denied PANDYA, dizzy or syncope.denied fever, chills, congestion, and cough. He
does have metastatic disease to the left hip and is scheduled a CT of the hip. He recently had an echocardiogram this past week. denied abdominal pain,n,v,d.stated poor appetite. denied dysuria or hematuria.
upon arrival noted pancytopenic. admitting for further management. patient received calcium, and PRBC in Er. admitting for further management.
Medical History
Past Medical History
Past Medical History: Reports Other
Additional Past Medical History:
CAD
HLD
HTN
restrictive lung disease
GA
JD
PAC
iliac artery aneurysm
type 2 DM
hemorrhoids
GERD
Lung ca
Past Surgical History: Reports Other
Additional Past Surgical History:
cardiac stents
cholecystectomy
Social History
Tobacco: Former Smoker
Alcohol: Former
Drug: None
Personal:
Living: With Family
Family History
Family History: Not pertinent
Allergies / Home Medications
Allergies reflects when Allergies were last updated in 5minutes.
Home Medications with original date entered in 5minutes
Allergy/Medication List:
Allergies
Allergy/AdvReac Type Severity Reaction Status Date / Time
fenofibrate Allergy Unknown Unknown Verified 09/10/24 08:34
lisinopril Allergy Unknown Unknown Verified 09/10/24 08:34
omeprazole Allergy Unknown Unknown Verified 09/10/24 08:34
Home Medications
aspirin 81 mg tablet,delayed release 81 mg PO HS 08/14/15
rosuvastatin 10 mg tablet 10 mg PO DAILY 12/30/23
albuterol sulfate 90 mcg/actuation aerosol inhaler 1 puff inhalation R Q4HPRN PRN SOB 01/02/24
guaifenesin 100 mg/5 mL oral liquid 200 mg PO Q4HPRN PRN chest congestion 01/17/24
cyanocobalamin (vitamin B-12) 1,000 mcg tablet 1,000 mcg PO HS 08/03/24
folic acid 1 mg tablet 1 mg PO DAILY 08/03/24
pantoprazole 40 mg tablet,delayed release 40 mg PO BID 08/03/24
umeclidinium 62.5 mcg-vilanterol 25 mcg/actuation powdr for inhalation (Anoro Ellipta) 1 inh inhalation R DAILY 08/03/24
dexamethasone 4 mg tablet 4 mg PO UD 09/10/24
ibuprofen 200 mg tablet (Advil) 200 mg PO Q6HPRN PRN mild pain 09/10/24
inulin-sorbitol 2 gram chewable tablet 2 tab PO DAILYPRN PRN constipation 09/10/24
ondansetron HCl 8 mg tablet 8 mg PO QID 09/10/24
oxycodone 5 mg tablet 5 mg PO Q6HPRN PRN if advil does not work 09/10/24
Review of Systems
-
Constitutional: Reports Fatigue
EENT: Reports No Symptoms
Respiratory: Reports Trouble Breathing
Cardiac: Reports No Symptoms
Abdomen/GI: Reports No Symptoms
: Reports No Symptoms
Musculoskeletal: Reports No Symptoms
Skin: Reports No Symptoms
Neurological: Reports Weakness
Endocrine: Reports No Symptoms
Hematologic/Lymphatic: Reports No Symptoms
Psych: Reports No Symptoms
Physical Exam
Vital Signs
Vital Signs
Temp Pulse Resp BP Pulse Ox
98.3 F 74 18 95/48 98
09/10/24 12:40 09/10/24 12:40 09/10/24 12:40 09/10/24 12:40 09/10/24 12:40
Physical Exam
General: Well Developed, Well Nourished and No Apparent Distress
HEENT: NormoCephalic, Moist mucous membranes and Atraumatic
Respiratory: Rales
Cardiac: S1/S2 and Regular Rhythm; No Murmur or Rub
GI: Soft, Non Tender, Non Distended and Normal Bowel Sounds; No Organomegaly
Rectal: Deferred by Provider
Musculoskeletal: No Clubbing, No Cyanosis and Other (LE edema)
Skin: No Rash
Neuro: AO x 3 and Nonfocal/grossly intact
Psych: Calm
Laboratory Results
-
09/10/24 09:32
09/10/24 09:32
Laboratory Results
Total Bilirubin 1.4 mg/dl (0.2-1.3) H 09/10/24 09:32
AST 41 U/L (17-59) 09/10/24 09:32
ALT 20 U/L (0-50) 09/10/24 09:32
Alkaline Phosphatase 130 U/L (38-126) H 09/10/24 09:32
Troponin I 0.073 ng/ml H* 09/10/24 09:56
Data Reviewed
-
Diagnostic Radiology: Report Reviewed by me
Lab Data: Labs Reviewed by me
Impression/Plan
-
#SOB likely from symptomatic anemia/pancytopenia likely from chemo
#hxt of metastatic lung ca to liver, bones
-wbc 1.3, hgb 6.7,platelets 36
-transfusing with 2 units of blood
-ctm CBC
-oncology consulted
#possible CHF exacerbation
BNP 20005
-Chest x ray with the impression of Moderately increased interstitial markings throughout both lungs mixed with mild diffuse ground-glass opacity. Diagnostic possibilities are (1) acute interstitial and alveolar cardiogenic pulmonary edema, (2) an
inflammatory interstitial pneumonitis, or (3) lymphangitic carcinomatosis.
2. Small bilateral pleural effusions.
3. Mild cardiomegaly.
4. Severe calcific atherosclerotic plaque in the aorta.
5. Left-sided AICD in place.
6. EXTENSIVE MULTIFOCAL BLASTIC OSSEOUS METASTATIC DISEASE.
-strict I &O
-daily weight
#acute kidney injury and hypocalcemia/metabolic acidosis likely from chemo
-co2 19, CR 1.9,ca 6.7
-patient received calcium in ER
-monitor BMP
#chronic trop elevation
-trop 0.073
-denied chest pain
-continue to trend trop
#hypotension
-hold all antihypertensives
-monitor Vital signs
#CAD
- cardiac stents
-ICD in place
-asa continued
#GERD
-PPI
#HLD
-statin continued
#hxt of ILD
-nebs from home continued
DVT ppx: SCDS
Code: Full
[2024-09-10 14:37] LABS: COVID-19 Antigen Negative (Negative)
--- NOTE | 2024-09-10 15:13 | PTOTSP ---
Speech Therapy Evaluation:
Pt exhibits oropharyngeal swallow that is grossly WFL, however did endorse difficulty in relation to copious foamy, thick, secretions. ? if related to chemo/lung CA. Pt demonstrated no overt s/sx of aspiration across PO trials and 3oz swallow
screen. Pt remains at increased risk of aspiration in relation to pulmonary status 2/2 metastatic lung cancer. Pt also remains at risk for post-prandial aspiration given hx of GERD that reported is not well managed despite PPI.
Recommend:
1. IDDSI Level 7 (regular) solids and thin liquids
2. Medications as tolerated
3. General aspiration precautions
4. Oral care 3x/daily
5. [employer] to follow - likely brief
[2024-09-10 16:02] LABS: Glucose - Point of Care 95 mg/dl (70-99)
[2024-09-10 17:10] LABS: Ionized Calcium 0.93 mMOL/L (1.15-1.33)
[2024-09-10 17:43] LABS: Troponin I 0.094 ng/ml
[2024-09-10] MEDS: VITAMIN B-12 1000 MCG PO (21:14)
[2024-09-10] MEDS: PROTONIX 40 MG PO (21:14)
[2024-09-10] MEDS: ASPIR LOW (ENTERIC COATED) 81 MG PO (21:15)
[2024-09-10] MEDS: ProAIR HFA INHALER 1 PUFF INH (21:34)
[2024-09-11 00:32] LABS: Glucose - Point of Care 100 mg/dl (70-99)
[2024-09-11 01:05] LABS: Troponin I 0.104 ng/ml
[2024-09-11 03:15] VITALS: BP 108/46
[2024-09-11 05:05] VITALS: BMI 23.5
[2024-09-11 07:25] VITALS: BP 120/53
[2024-09-11] MEDS: SPIRIVA RESPIMAT 2.5 MCG 2 PUFF INH (07:27)
[2024-09-11] MEDS: STRIVERDI RESPIMAT 2 PUFF INH (07:27)
[2024-09-11 07:29] LABS: Hematocrit 23.8 % (39.0-52.0); Hemoglobin 8.1 g/dL (13.0-18.0); Mean Corpuscular Hgb 31.5 pg (27.0-31.0); Mean Corpuscular Volume 92.6 fL (80.0-94.0); Red Blood Cell Count 2.57 10^6/uL (4.70-6.10); Red Cell Dist. Width 22.3 % (11.5-14.5); White Blood Cell Count 1.1 10^3/uL (4.8-10.8)
[2024-09-11 07:37] LABS: Troponin I 0.099 ng/ml
[2024-09-11 07:47] LABS: Glucose - Point of Care 102 mg/dl (70-99)
[2024-09-11 08:04] LABS: Blood Urea Nitrogen 30 mg/dl (9-20); Calcium 7.1 mg/dl (8.4-10.2); Carbon Dioxide 23 mmol/L (22-30); Chloride 107 mmol/L (98-107); Estimated Creatinine Clearance 34 ml/min; Glucose 101 mg/dl (70-99); Potassium 3.5 mmol/L (3.5-5.1); Sodium 139 mmol/L (135-145); eGFR 41.01
[2024-09-11 08:51] LABS: Hepatitis C Antibody Negative (Negative)
--- NOTE | 2024-09-11 09:26 | CON.ONC ---
Impression
Impression
Weakness, fatigue
Pancytopenia from chemotherapy
Metastatic lung cancer, with bone and liver metastases. Likely adenocarcinoma. Treatment at [facility]
Heart failure, with ejection fraction of 45%
MAY
Plan
Plan
Pancytopenia is from chemotherapy. Would support with blood transfusions to keep hemoglobin above 7, or as clinically indicated. Platelet count pending this morning, would transfuse platelets if bleeding, none currently, or if < 15,000. He did
not receive G-CSF with his most recent chemotherapy cycle. Await ANC today. No role for G-CSF in the absence of fever, infection, and this far out from chemotherapy.
Further decisions regarding lung cancer treatment per his team at [facility], Dr. Vo and Dr. Myers (fellow). It seems that he is not tolerating chemotherapy well, and may best be served by Keytruda alone. I will reach out to his oncologist with
an update.
Would recommend cardiology evaluation while hospitalized, to optimize medications in the setting of MAY. He was scheduled for an outpatient visit tomorrow.
Will follow along.
Patient History
History of Present Illness
This is a 79-year-old man with stage IV lung cancer, diagnosed in February 2024, who presented to the emergency room on September 10 with weakness and fatigue. CBC showed white blood cell count of 1.3 with absolute neutrophil count of 800, hemoglobin of
6.7 and platelet count of 36. He was transfused 2 units of packed red blood cells, hemoglobin this morning is 8.1. White blood cell count is 1.1. ANC and platelet counts are pending this morning. Admission chemistries were noted for bilirubin of
1.4, had been 0.6 the month prior. Creatinine was 1.9, previously 0.8. Troponin was 0.073 and proBNP 10,500.
His lung cancer treatment history is noted for diagnosis in February 2024, with bone and liver metastases. His care has been exclusively at [facility], with Dr. Vo. It sounds like he received 4 cycles of carboplatin, pemetrexed, and Keytruda
initially, then carboplatin was discontinued and he received 2 more cycles of pemetrexed and Keytruda, most recently on August 30, 2024. He did not receive G-CSF since carboplatin was discontinued.
He has a significant cardiac history, including coronary artery disease, recent drop in ejection fraction from 50 to 45%, hypertension and a prior SD, history of VT status post dual-chamber ICD placement in December 2023. He is a patient of Dr. Nazario.
He recently was started on Entresto and Lasix, which led to hypotension and were discontinued last week.
He is hard of hearing, somewhat difficult to converse with. He is starving after being n.p.o. for abdominal ultrasound this morning. He says it is too early to tell if yesterday's blood transfusion has helped or not. He denies any bleeding.
Past-Medical/Surgical History
Past medical and surgical history is as per the HPI, also includes sleep apnea, restrictive lung disease, diabetes, GERD, cardiac stents, cholecystectomy
Social history: He is a former smoker, , lives with family.
Family history: Noncontributory
Patient Medication
�Medication �Instructions �Recorded �Confirmed �Last Taken �Type
aspirin 81 mg tablet,delayed 81 mg PO HS 08/14/15 09/10/24 09/09/24 History
release
rosuvastatin 10 mg tablet 10 mg PO DAILY 12/30/23 09/10/24 09/09/24 History
albuterol sulfate 90 mcg/actuation 1 puff inhalation R Q4HPRN PRN SOB 01/02/24 09/10/24 01/05/24 21:00 History
aerosol inhaler
guaifenesin 100 mg/5 mL oral liquid 200 mg PO Q4HPRN PRN chest 01/17/24 09/10/24 Unknown History
congestion
cyanocobalamin (vitamin B-12) 1,000 mcg PO HS 08/03/24 09/10/24 09/09/24 History
1,000 mcg tablet
folic acid 1 mg tablet 1 mg PO DAILY 08/03/24 09/10/24 09/09/24 History
pantoprazole 40 mg tablet,delayed 40 mg PO BID 08/03/24 09/10/24 09/09/24 History
release
umeclidinium 62.5 mcg-vilanterol 1 inh inhalation R DAILY 08/03/24 09/10/24 09/09/24 History
25 mcg/actuation powdr for
inhalation (Anoro Ellipta)
dexamethasone 4 mg tablet 4 mg PO UD 09/10/24 09/10/24 Unknown History
ibuprofen 200 mg tablet (Advil) 200 mg PO Q6HPRN PRN mild pain 09/10/24 09/10/24 Unknown History
inulin-sorbitol 2 gram chewable 2 tab PO DAILYPRN PRN constipation 09/10/24 09/10/24 Unknown History
tablet
ondansetron HCl 8 mg tablet 8 mg PO QID 09/10/24 09/10/24 09/09/24 History
oxycodone 5 mg tablet 5 mg PO Q6HPRN PRN if advil does 09/10/24 09/10/24 Unknown History
not work
Active Medications
Generic Name Dose Route Start Last Admin
Trade Name Freq PRN Reason Stop Dose Admin
Acetaminophen 650 mg 09/10/24 20:26
Acetaminophen 325 Mg Tablet PO 10/08/24 20:25
Q4HPRN PRN
mild pain/PANDYA/temp> 100.4F
Albuterol 1 puff 09/10/24 20:26 09/10/24 21:34
Albuterol Hfa [90 Mcg/Dose] Inhaler INH 1 puff
R Q4HPRN PRN Administration
SOB
Protocol
Aspirin 81 mg 09/10/24 22:00 09/10/24 21:15
Aspirin 81 Mg (Enteric Coated) Tablet PO 10/08/24 21:59 81 mg
HS JACQUI Administration
Bisacodyl 10 mg 09/10/24 20:26
Bisacodyl 10 Mg Rectal Suppository RECTAL 10/08/24 20:25
[id number] PRN
constipation
Cyanocobalamin 1,000 mcg 09/10/24 22:00 09/10/24 21:14
Cyanocobalamin 1,000 Mcg Tablet PO 10/08/24 21:59 1,000 mcg
HS JACQUI Administration
Olodaterol 2 puff 09/11/24 08:00 09/11/24 07:27
Olodaterol (Striverdi Respimat) 2.5 Mcg Inhaler INH 10/09/24 07:59 2 puff
R DAILY JACQUI Administration
Protocol
Oxycodone HCl 5 mg 09/10/24 20:26
Oxycodone 5 Mg Regular Release Tablet PO 09/24/24 20:25
Q6HPRN PRN
moderate pain
Pantoprazole Sodium 40 mg 09/10/24 20:26 09/10/24 21:14
Pantoprazole 40 Mg Delayed Release Tablet PO 10/08/24 20:25 40 mg
BID JACQUI Administration
Polyethylene Glycol 17 grams 09/10/24 20:26
Polyethylene Glycol Powder 17 Grams Packet PO 10/08/24 20:25
DAILYPRN PRN
constipation
Rosuvastatin Calcium 10 mg 09/11/24 08:00
Rosuvastatin (Crestor) 10 Mg Tablet PO 10/09/24 07:59
DAILY JACQUI
Senna/Docusate Sodium 1 tablet 09/10/24 20:26
Docusate W/Senna (Keely-Colace) Tablet PO 10/08/24 20:25
BIDPRN PRN
constipation
Sodium Chloride 0 flush 09/10/24 21:00
Sodium Chloride 0.9% (Flush) Syringe IV 10/08/24 20:59
PER PROTOCOL JACQUI
Tiotropium [place] 2 puff 09/11/24 08:00 09/11/24 07:27
Tiotropium (Spiriva Respimat) 2.5 Mcg Inhaler INH 10/09/24 07:59 2 puff
R DAILY JACQUI Administration
Protocol
Review of Systems
-
History Source: Patient
All Other Systems: Not reviewed unless documented
GI: Denies Diarrhea
Physical Exam
-
General: Well Developed, Well Nourished and No Apparent Distress
HEENT: Moist Mucous Membranes; Negative Jaundice
Cardiology: Normal Sinus Rhythm
Pulmonary: Clear
GI: Soft and Normal Bowel Sounds
Musculoskeletal: No Clubbing, No Cyanosis and No Edema
Extremities: Pulses Present and No C/C/E
Neurology: Non Focal, No Lateralizing Symptoms and No Word Finding Difficulty
Skin: Warm and Dry; Negative Rash
Hematologic / Lymphatic: No Lymphadenopathy
Labs
Lab Results
WBC 1.1 10^3/uL (4.8-10.8) L* 09/11/24 05:49
RBC 2.57 10^6/uL (4.70-6.10) L 09/11/24 05:49
Hgb 8.1 g/dL (13.0-18.0) L D 09/11/24 05:49
Hct 23.8 % (39.0-52.0) L 09/11/24 05:49
MCV 92.6 fL (80.0-94.0) 09/11/24 05:49
MCH 31.5 pg (27.0-31.0) H 09/11/24 05:49
MCHC 34.0 g/dL (33.0-37.0) 09/11/24 05:49
RDW 22.3 % (11.5-14.5) H 09/11/24 05:49
Plt Count 36 10^3/uL (130-400) L 09/10/24 09:32
MPV 11.9 fL (7.4-10.4) H 09/10/24 09:32
Creatinine 1.7 mg/dL (0.7-1.3) H 09/11/24 05:49
Vital Signs
Vital Signs
Temp Pulse Resp BP Pulse Ox
97.7 F 69 17 120/53 96
09/11/24 07:25 09/11/24 07:30 09/11/24 07:30 09/11/24 07:25 09/11/24 07:30
[2024-09-11] MEDS: PROTONIX 40 MG PO ×2 (09:55→20:02)
[2024-09-11] MEDS: CRESTOR 10 MG PO (09:55)
[2024-09-11 10:05] LABS: Mean Platelet Volume 10.4 fL (7.4-10.4)
[2024-09-11 10:06] LABS: Platelet Count 25 10^3/uL (130-400)
[2024-09-11 11:10] VITALS: BP 110/55
[2024-09-11 12:50] LABS: Glucose - Point of Care 146 mg/dl (70-99)
[2024-09-11 13:06] VITALS: BMI 23.5
--- NOTE | 2024-09-11 13:36 | W.PN.HOSP.TC ---
Addendum entered and electronically signed by Jigar Guerin MD 09/12/24 13:26:
HFmrEF
-EF 45%
-hold raymond curtis with lud[facility] - and await stabilization with close cardiolgy f/u next week
Original Note:
Today's Communication/Plan
-
monitor hgb
Assessment / Plan
Assessment / Plan
Physical Exam
General: Well Developed, Well Nourished and No Apparent Distress
HEENT: NormoCephalic, Moist mucous membranes and Atraumatic
Respiratory: Rales
Cardiac: S1/S2 and Regular Rhythm; No Murmur or Rub
GI: Soft, Non Tender, Non Distended and Normal Bowel Sounds; No Organomegaly
Rectal: Deferred by Provider
Musculoskeletal: No Clubbing, No Cyanosis and Other (LE edema)
Skin: No Rash
Neuro: AO x 3 and Nonfocal/grossly intact
Psych: Calm
#SOB
#likely from symptomatic anemia
-resolved s/p 2u prbc
-heme consulted
-monitor cbc; maintain >7
-as symptoms improved, will hold off on diuresis and treating like chf exacerbation at this time
-does have known IV Lung Ca
#Pancytopenia likely from chemo
#hxt of metastatic lung ca to liver, bones
-await anc
-f/u onc recs
-Transfuse if bleeding or if Plt <15,000
#Elevated Troponin
-most likely non mi related troponin elevation from anemia
-ctm
-no chest pain
#acute kidney injury
#metabolic acidosis
-likely from anemia
-monitor with resuscitation
-f/u Fe[facility]
-if no change in Scr - can consider renal consult
#hypotension
-hold all antihypertensives
-monitor Vital signs
#CAD
-s/p PCI
-ICD in place
-asa continued
#2 complex left renal cyst. Dedicated CT of the kidneys pre- and post-IV contrast or MRI examination recommended.
-f/u outpt
#GERD
-PPI
#HLD
-statin continued
#hxt of ILD
-nebs from home continued
#Lung Ca
-onc consulted
-f/u at [facility]
DVT ppx: SCDs
Code: Full
Anticipated Discharge: 24 - 48 hours
Subjective/Interval History
-
Date of Service: September 11, 2024
Shortness of breath, resolved, feels much better
Objective Data
-
Labs:
Laboratory Results
09/11/24
05:49
WBC 1.1 L*
Hgb 8.1 L D
Hct 23.8 L
Plt Count 25 L* D
Sodium 139
Potassium 3.5
Chloride 107
Carbon Dioxide 23
BUN 30 H
Creatinine 1.7 H
Glucose 101 H
Calcium 7.1 L
Vital Signs:
Vital Signs
Temp Pulse Resp BP Pulse Ox
97.6 F 72 17 110/55 99
09/11/24 11:10 09/11/24 11:10 09/11/24 11:10 09/11/24 11:10 09/11/24 11:10
I&O
09/10/24 09/11/24 09/12/24
06:59 06:59 06:59
Intake Total 980 / 980
Output Total 300 / 300
Balance 680 / 680
Review of Systems
-
History Source: Patient
All other systems: Not reviewed unless documented
Physical Exam
-
General: No Apparent Distress
HEENT: Normocephalic and Atraumatic
Respiratory: Negative Wheezes
Cardiac: Regular Rhythm and S1/S2
GI: Soft and Nontender
Genito-urinary: No Costovertebral Tender
Musculoskeletal: No Edema
Neuro: AO x 3
Hematologic / Lymphatic: No Lymphadenopathy
Psych: Calm
Data Reviewed
-
Total Time Spent with Patient (in minutes): 41
Labs: Labs Reviewed by me
--- NOTE | 2024-09-11 13:37 | CM ---
Reviewed the chart notes and spoke with the patient at the bedside. The patient is admitted for anemia. The patient resides with his spouse in a two story home with no steps to enter. The patient has a rolling walker, cane, and shower rails. The
patient has not had VN in the past, nor been to a SNF. The patient confirmed his pharmacy of choice is [facility] and his PCP is Dr. Ira Coleman. CM continues to be available to patient/family and is monitoring medical plan for needs at
discharge.
Plan: Discharge to home when medically stable. No anticipated needs identified at this time.
[2024-09-11 15:03] LABS: Troponin I 0.094 ng/ml
[2024-09-11 15:15] VITALS: BP 116/59
[2024-09-11 16:40] LABS: Glucose - Point of Care 178 mg/dl (70-99)
[2024-09-11] MEDS: NOVOLOG FLEXPEN-LOW RESISTANCE 1 UNITS SC (17:41)
[2024-09-11 19:52] VITALS: BP 111/60
[2024-09-11] MEDS: ASPIR LOW (ENTERIC COATED) 81 MG PO (20:05)
[2024-09-11] MEDS: VITAMIN B-12 1000 MCG PO (20:05)
[2024-09-11 21:25] LABS: Glucose - Point of Care 170 mg/dl (70-99)
[2024-09-11] MEDS: ProAIR HFA INHALER 1 PUFF INH (21:36)
[2024-09-11 23:07] VITALS: BP 112/45
[2024-09-11 23:51] LABS: Urine Sodium 18 mmol/L (30-90)
[2024-09-12 02:58] VITALS: BP 113/59
[2024-09-12 05:20] VITALS: BMI 23.3
[2024-09-12 07:13] LABS: Blood Urea Nitrogen 25 mg/dl (9-20); Calcium 7.4 mg/dl (8.4-10.2); Carbon Dioxide 22 mmol/L (22-30); Chloride 106 mmol/L (98-107); Estimated Creatinine Clearance 41 ml/min; Glucose 117 mg/dl (70-99); Potassium 3.3 mmol/L (3.5-5.1); Sodium 139 mmol/L (135-145); eGFR 51.77
[2024-09-12 07:28] LABS: Hematocrit 23.4 % (39.0-52.0); Mean Corp Hgb Conc. 34.2 g/dL (33.0-37.0); Mean Corpuscular Hgb 31.5 pg (27.0-31.0); Mean Corpuscular Volume 92.1 fL (80.0-94.0); Mean Platelet Volume 11.7 fL (7.4-10.4); Platelet Count 22 10^3/uL (130-400); Red Blood Cell Count 2.54 10^6/uL (4.70-6.10); Red Cell Dist. Width 21.3 % (11.5-14.5)
[2024-09-12 07:30] VITALS: BP 135/61
[2024-09-12] MEDS: STRIVERDI RESPIMAT 2 PUFF INH (07:38)
[2024-09-12] MEDS: SPIRIVA RESPIMAT 2.5 MCG 2 PUFF INH (07:38)
[2024-09-12 07:44] LABS: Glucose - Point of Care 128 mg/dl (70-99)
[2024-09-12] MEDS: NOVOLOG FLEXPEN-LOW RESISTANCE SC ×2 (07:55→16:33)
[2024-09-12] MEDS: CRESTOR 10 MG PO (07:55)
[2024-09-12] MEDS: PROTONIX 40 MG PO ×2 (07:55→19:40)
[2024-09-12] MEDS: ProAIR HFA INHALER 2 PUFF INH ×2 (08:08→20:20)
[2024-09-12 09:09] LABS: Band Neutrophils 2 % (0-3); Segmented Neutrophils 61 % (42-75)
[2024-09-12 09:10] LABS: Atypical Lymphocytes 6 %; Eosinophils 1 % (0-6); Lymphocytes 14 % (20-51); Monocytes 16 % (2-9); Normal RBC Morphology Yes; Nucleated Red Blood Cells 2 (-); Platelets Checked Yes; Total Cells Counted 100
[2024-09-12 09:11] LABS: Absolute Neutrophils -Man Diff 0.6 10^3/uL (1.4-6.5)
[2024-09-12] MEDS: KCL ELIXIR 40 MEQ PO (10:35)
--- NOTE | 2024-09-12 10:44 | W.PN.ONC2 ---
Documented by User: MARY Price 09/12/24 10:51
Today's Communication / Plan
-
post nasal gtt and excessive mucus production per primary service
consider cardiology consult (known to Dr. Nazario) with MAY, may need cardiac medication adjustments
daily CBC while hospitalized
continue close CBC monitoring with primary oncologist upon discharge
Impression
Impression
Weakness, fatigue
Pancytopenia from chemotherapy, compliant with B12 and folate. No new meds or supplements. Denies recent sxs infection.
Metastatic lung cancer, with bone and liver metastases. Likely adenocarcinoma. Treatment at [facility]
Heart failure, with ejection fraction of 45%
MAY -improved
Plan
Plan
Pancytopenia is from chemotherapy. continue folic acid. Would support with blood transfusions to keep hemoglobin above 7, or as clinically indicated. Transfuse platelets if bleeding, none currently, or if < 15,000. He did not receive G-CSF with
his most recent chemotherapy cycle. ANC 600. Neutropenic precautions. No role for G-CSF in the absence of fever, infection, and this far out from chemotherapy.
Further decisions regarding lung cancer treatment per his team at [facility], Dr. Vo and Dr. Myers (fellow). Dr. Kline provided updates and discussed case with primary oncologist.
Would recommend cardiology evaluation while hospitalized, to optimize medications in the setting of MAY. He was scheduled for an outpatient visit tomorrow.
Subjective/Objective
Subjective
feeling well, denies bleeding or bruising
excessive mucus production is major complaint today, ongoing for several weeks but not associated with fever or chills.
at bedside provided updates
Vital Signs:
Vital Signs
Temp Pulse Resp BP Pulse Ox
97.4 F 72 14 135/61 97
09/12/24 07:30 09/12/24 07:39 09/12/24 07:39 09/12/24 07:30 09/12/24 07:30
Lab Results:
Laboratory Data
WBC 1.0 10^3/uL (4.8-10.8) L* 09/12/24 05:49
Hgb 8.0 g/dL (13.0-18.0) L 09/12/24 05:49
Plt Count 22 10^3/uL (130-400) L* 09/12/24 05:49
eGFR 51.77 09/12/24 05:49
Physical Exam
HEENT: Moist Mucous Membranes; No Jaundice
Cardiology: Normal Sinus Rhythm
Pulmonary: Clear
GI: Soft
Extremities: Pulses Present; No Edema
Neuro: Non Focal

Documented by User: En Jacobson MD 09/12/24 12:49
Plan
Plan
Pancytopenia is from chemotherapy. continue folic acid. Would support with blood transfusions to keep hemoglobin above 7, or as clinically indicated. Transfuse platelets if bleeding, none currently, or if < 15,000. He did not receive G-CSF with
his most recent chemotherapy cycle. ANC 600. Neutropenic precautions. No role for G-CSF in the absence of fever, infection, and this far out from chemotherapy.
Further decisions regarding lung cancer treatment per his team at [facility], Dr. Vo and Dr. Myers (fellow). Dr. Kline provided updates and discussed case with primary oncologist.
Would recommend cardiology evaluation while hospitalized, to optimize medications in the setting of AMY. He was scheduled for an outpatient visit tomorrow.
Oncology Addendum:
Patient evaluated and agree w/ AGRICULTURE MANAGER note and plan a outlined
-lung cancer - tx w/ alimta and keytruda at [facility]
-cytopenias - related to tx at [facility]
-follow CBC
-f/u at [facility]
[2024-09-12 11:42] LABS: Glucose - Point of Care 196 mg/dl (70-99)
[2024-09-12] MEDS: NOVOLOG FLEXPEN-LOW RESISTANCE 1 UNITS SC (12:53)
--- NOTE | 2024-09-12 13:09 | W.PN.HOSP.TC ---
Today's Communication/Plan
-
small lr bolus
monitor renal function
f/u cbc
f/u heme recs
Assessment / Plan
Assessment / Plan
Physical Exam
General: Well Developed, Well Nourished and No Apparent Distress
HEENT: NormoCephalic, Moist mucous membranes and Atraumatic
Respiratory: Rales
Cardiac: S1/S2 and Regular Rhythm; No Murmur or Rub
GI: Soft, Non Tender, Non Distended and Normal Bowel Sounds; No Organomegaly
Rectal: Deferred by Provider
Musculoskeletal: No Clubbing, No Cyanosis and Other (LE edema)
Skin: No Rash
Neuro: AO x 3 and Nonfocal/grossly intact
Psych: Calm
#SOB
#likely from symptomatic anemia
-resolved s/p 2u prbc
-heme consulted
-monitor cbc; maintain >7
-as symptoms improved, will hold off on diuresis and treating like chf exacerbation at this time - will defer lasix until seen outpt closely with cardiology, along with stability of renal function
-does have known IV Lung Ca
#Pancytopenia likely from chemo
#hxt of metastatic lung ca to liver, bones
-monitor
-f/u onc recs
-Transfuse if bleeding or if Plt <15,000
#Elevated Troponin
-most likely non mi related troponin elevation from anemia
-ctm
-no chest pain
#acute kidney injury
#metabolic acidosis
-likely from anemia
-monitor with resuscitation
improving
-eating well, may provide 250cc bolus
#Hypokalemia
-monitor and replete
#hypotension
-hold all antihypertensives
-monitor Vital signs
#CAD
-s/p PCI
-ICD in place
-asa continued
#2 complex left renal cyst. Dedicated CT of the kidneys pre- and post-IV contrast or MRI examination recommended.
-f/u outpt
#Hypokalemia
-monitor and replete
#GERD
-PPI
#HLD
-statin continued
#hxt of ILD
-nebs from home continued
#Lung Ca
-onc consulted
-f/u at [facility]
DVT ppx: SCDs
Code: Full
Anticipated Discharge: Within 24 hours
Subjective/Interval History
-
Date of Service: September 12, 2024
feels better
Objective Data
-
Labs:
Laboratory Results
09/12/24
05:49
WBC 1.0 L*
Hgb 8.0 L
Hct 23.4 L
Plt Count 22 L*
Sodium 139
Potassium 3.3 L
Chloride 106
Carbon Dioxide 22
BUN 25 H
Creatinine 1.4 H
Glucose 117 H
Calcium 7.4 L
Vital Signs:
Vital Signs
Temp Pulse Resp BP Pulse Ox
97.4 F 72 14 135/61 97
09/12/24 07:30 09/12/24 07:39 09/12/24 07:39 09/12/24 07:30 09/12/24 07:30
I&O
09/11/24 09/12/24 09/13/24
06:59 06:59 06:59
Intake Total 980 / 980 720 / 720
Output Total 300 / 300
Balance 680 / 680 720 / 720
Review of Systems
-
History Source: Patient
All other systems: Not reviewed unless documented
Physical Exam
-
General: No Apparent Distress
HEENT: Normocephalic and Atraumatic
Respiratory: Negative Wheezes
Cardiac: Regular Rhythm and S1/S2
GI: Soft and Nontender
Genito-urinary: No Costovertebral Tender
Musculoskeletal: No Edema
Neuro: AO x 3
Hematologic / Lymphatic: No Lymphadenopathy
Psych: Calm
Data Reviewed
-
Total Time Spent with Patient (in minutes): 41
Labs: Labs Reviewed by me
[2024-09-12] MEDS: LR 500 IV (14:44)
[2024-09-12 15:31] VITALS: BP 124/55
--- NOTE | 2024-09-12 16:05 | CM ---
Reviewed the chart notes and spoke with the patient at the bedside. IMM signed and placed on chart. CM continues to be available to patient/family and is monitoring medical plan for needs at discharge.
Plan: Discharge to home with no needs. Spouse will provide transportation.
[2024-09-12 16:31] LABS: Glucose - Point of Care 101 mg/dl (70-99)
[2024-09-12] MEDS: ASPIR LOW (ENTERIC COATED) 81 MG PO (19:43)
[2024-09-12] MEDS: VITAMIN B-12 1000 MCG PO (19:43)
[2024-09-12 21:11] LABS: Glucose - Point of Care 178 mg/dl (70-99)
[2024-09-12 23:24] VITALS: BP 121/64
[2024-09-13 06:00] VITALS: BMI 23.7
[2024-09-13 06:46] LABS: Hematocrit 24.9 % (39.0-52.0); Hemoglobin 8.1 g/dL (13.0-18.0); Mean Corp Hgb Conc. 32.5 g/dL (33.0-37.0); Mean Corpuscular Hgb 30.6 pg (27.0-31.0); Platelet Count 21 10^3/uL (130-400); Red Blood Cell Count 2.65 10^6/uL (4.70-6.10); Red Cell Dist. Width 20.6 % (11.5-14.5); White Blood Cell Count 1.1 10^3/uL (4.8-10.8)
[2024-09-13 06:58] LABS: Blood Urea Nitrogen 21 mg/dl (9-20); Calcium 7.6 mg/dl (8.4-10.2); Carbon Dioxide 24 mmol/L (22-30); Chloride 105 mmol/L (98-107); Estimated Creatinine Clearance 44 ml/min; Glucose 147 mg/dl (70-99); Potassium 3.5 mmol/L (3.5-5.1); Sodium 139 mmol/L (135-145); eGFR 56.58
[2024-09-13] MEDS: ProAIR HFA INHALER 2 PUFF INH (07:24)
[2024-09-13] MEDS: STRIVERDI RESPIMAT 2 PUFF INH (07:24)
[2024-09-13] MEDS: SPIRIVA RESPIMAT 2.5 MCG 2 PUFF INH (07:24)
[2024-09-13 07:45] VITALS: BP 121/47
[2024-09-13 08:09] LABS: Glucose - Point of Care 151 mg/dl (70-99)
[2024-09-13] MEDS: CRESTOR 10 MG PO (08:17)
[2024-09-13] MEDS: PROTONIX 40 MG PO (08:17)
--- NOTE | 2024-09-13 08:17 | W.PN.ONC2 ---
Today's Communication / Plan
-
close follow up with primary oncologist
neutropenic and bleeding precautions reviewed with pt and at bedside
Impression
Impression
Weakness, fatigue
Pancytopenia from chemotherapy, compliant with B12 and folate. No new meds or supplements. Denies recent sxs infection.
Metastatic lung cancer, with bone and liver metastases. Likely adenocarcinoma. Treatment at [facility]
Heart failure, with ejection fraction of 45%
MAY -improved
Plan
Plan
Pancytopenia is from chemotherapy. continue folic acid. Would support with blood transfusions to keep hemoglobin above 7, or as clinically indicated. Transfuse platelets if bleeding, none currently, or if < 15,000. He did not receive G-CSF with
his most recent chemotherapy cycle. ANC 600. Neutropenic precautions. No role for G-CSF in the absence of fever, infection, and this far out from chemotherapy.
Further decisions regarding lung cancer treatment per his team at [facility], Dr. Vo and Dr. Myers (fellow). Dr. Kline provided updates and discussed case with primary oncologist.
Would recommend cardiology evaluation while hospitalized, to optimize medications in the setting of MAY. He was scheduled for an outpatient visit tomorrow.
Subjective/Objective
Subjective
no new complaints
Vital Signs:
Vital Signs
Temp Pulse Resp BP Pulse Ox
98.1 F 68 16 121/47 94
09/13/24 07:45 09/13/24 07:45 09/13/24 07:45 09/13/24 07:45 09/13/24 07:45
Lab Results:
Laboratory Data
WBC 1.1 10^3/uL (4.8-10.8) L* 09/13/24 05:25
Hgb 8.1 g/dL (13.0-18.0) L 09/13/24 05:25
Plt Count 21 10^3/uL (130-400) L* 09/13/24 05:25
eGFR 56.58 09/13/24 05:25
Physical Exam
HEENT: Moist Mucous Membranes; No Jaundice
Cardiology: Normal Sinus Rhythm
Pulmonary: Clear
GI: Soft
Extremities: Pulses Present; No Edema
Neuro: Non Focal
Orders
Orders
Orders From Last 24 Hours
09/12/24 10:51
Precautions As Directed
[2024-09-13] MEDS: NOVOLOG FLEXPEN-LOW RESISTANCE 1 UNITS SC (08:18)
[2024-09-13 09:17] LABS: % Eosinophils 0.9 % (0-6); % Immature Granulocytes 0.9 % (0-0.5); % Monocytes 17.9 % (1.7-9.3); % Neutrophils 63.3 % (42.2-75.2); Absolute Lymphocytes 0.2 10^3/uL (1.2-3.4); Absolute Monocytes 0.2 10^3/uL (0.1-0.6); Absolute Neutrophils 0.7 10^3/uL (1.4-6.5); Nucleated Red Blood Cells % 0 % (-)
--- NOTE | 2024-09-13 11:51 | CM ---
Reviewed the chart notes. CM continues to be available to patient/family and is monitoring medical plan for needs at discharge.
Plan: Discharge to home with no needs. Spouse will provide transportation.
--- NOTE | 2024-09-13 12:50 | W.PN.HOSP.TC ---
Addendum entered and electronically signed by Jigar Guerin MD 09/13/24 16:35:
[id number]
Original Note:
Today's Communication/Plan
-
f/u cbc and cmp closely outpt
f/u onc, pcp, cards outpt
Neutropenic, anemic, thrombocytopenic precautions given
Assessment / Plan
Assessment / Plan
Physical Exam
General: Well Developed, Well Nourished and No Apparent Distress
HEENT: NormoCephalic, Moist mucous membranes and Atraumatic
Respiratory: Rales
Cardiac: S1/S2 and Regular Rhythm; No Murmur or Rub
GI: Soft, Non Tender, Non Distended and Normal Bowel Sounds; No Organomegaly
Rectal: Deferred by Provider
Musculoskeletal: No Clubbing, No Cyanosis and Other (LE edema)
Skin: No Rash
Neuro: AO x 3 and Nonfocal/grossly intact
Psych: Calm
#SOB
- from #symptomatic anemia
-resolved s/p 2u prbc
-heme consulted
-monitor cbc; maintain >7
-as symptoms improved, will hold off on diuresis and treating like chf exacerbation at this time - will defer lasix until seen outpt closely with cardiology, along with stability of renal function
-does have known IV Lung Ca
-F/u Onc closely with repeat CBC
#Pancytopenia likely from chemo
#hxt of metastatic lung ca to liver, bones
-monitor
-f/u onc recs
-Transfuse if bleeding or if Plt <15,000
-stable - repeat CBC closely; precautions reviewed
#Elevated Troponin
-most likely non mi related troponin elevation from anemia
-ctm
-no chest pain
-recent echo with new EF 45% from 50%; no sig changes
-f/u Dr. white outpt
#acute kidney injury
#metabolic acidosis
-likely from anemia - improving
-monitor with resuscitation
improving
-eating well
-f/u bmp outpt
-hold on entresto/lasix for now and defer outpt cardiology
#Hypokalemia
-monitor and replete
#hypotension
-hold all antihypertensives
-monitor Vital signs
-f/u cards outpt
#CAD
-s/p PCI
-ICD in place
-asa continued
#2 complex left renal cyst. Dedicated CT of the kidneys pre- and post-IV contrast or MRI examination recommended.
-f/u outpt
#Hypokalemia
-monitor and replete
#GERD
-PPI
#HLD
-statin continued
#hxt of ILD
-nebs from home continued
#Lung Ca
-onc consulted
-f/u at [facility]
DVT ppx: SCDs
Code: Full
More than 30 minutes spent in discharge including
Final examination of the patient
Summarizing hospital stay
Instructions for continuing care to all relevant caregivers
Preparation of discharge records, prescriptions, and referral forms
Total time spent (36 in minutes):
Anticipated Discharge: Today
Subjective/Interval History
-
Date of Service: September 13, 2024
MAY,improving. doing well
Objective Data
-
Labs:
Laboratory Results
09/13/24
05:25
WBC 1.1 L*
Hgb 8.1 L
Hct 24.9 L
Plt Count 21 L*
Sodium 139
Potassium 3.5
Chloride 105
Carbon Dioxide 24
BUN 21 H
Creatinine 1.3
Glucose 147 H
Calcium 7.6 L
Vital Signs:
Vital Signs
Temp Pulse Resp BP Pulse Ox
98.1 F 68 16 121/47 94
09/13/24 07:45 09/13/24 07:45 09/13/24 07:45 09/13/24 07:45 09/13/24 07:45
I&O
09/12/24 09/13/24 09/14/24
06:59 06:59 06:59
Intake Total 720 / 720 2340 / 2340
Balance 720 / 720 2340 / 2340
Review of Systems
-
History Source: Patient
All other systems: Not reviewed unless documented
Physical Exam
-
General: No Apparent Distress
HEENT: Normocephalic and Atraumatic
Respiratory: Negative Wheezes
Cardiac: Regular Rhythm and S1/S2
GI: Soft and Nontender
Genito-urinary: No Costovertebral Tender
Musculoskeletal: No Edema
Neuro: AO x 3
Hematologic / Lymphatic: No Lymphadenopathy
Psych: Calm
Data Reviewed
-
Total Time Spent with Patient (in minutes): 41
Ultrasound: Report Reviewed by me
Labs: Labs Reviewed by me
--- NOTE | 2024-09-13 12:54 | W.DS.TRANS ---
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
-
Discharge Instructions:
Discharge Diagnosis/Procedures MAY
Pancytopenia
Symptomatic Anemia
Diet Low Cholesterol,Low Fat
Activity As tolerated
Blood Work CBC and BMP closely with PCP - monitoring WBC,
hgB, Platelets, Serum Creatine
Other Services OT,PT
Instructions:
Stand-Alone Forms:
Changes to Home Medications: No
Discharge Medications:
DC Medications w/original date entered in [id number]
aspirin 81 mg tablet,delayed release 81 mg PO HS Blood Clot Prevention/Tx 08/14/15
rosuvastatin 10 mg tablet 10 mg PO DAILY High Cholesterol 12/30/23
albuterol sulfate 90 mcg/actuation aerosol inhaler 2 puff inhalation R Q4HPRN PRN SOB 01/02/24
guaifenesin 100 mg/5 mL oral liquid 200 mg PO Q4HPRN PRN chest congestion 01/17/24
cyanocobalamin (vitamin B-12) 1,000 mcg tablet 1,000 mcg PO HS Supplement 08/03/24
folic acid 1 mg tablet 1 mg PO DAILY Supplement 08/03/24
pantoprazole 40 mg tablet,delayed release 40 mg PO BID GERD 08/03/24
umeclidinium 62.5 mcg-vilanterol 25 mcg/actuation powdr for inhalation (Anoro Ellipta) 1 inh inhalation R DAILY Lung/Breathing Issues 08/03/24
dexamethasone 4 mg tablet 4 mg PO UD INFLAMMATION 09/10/24
inulin-sorbitol 2 gram chewable tablet 2 tab PO DAILYPRN PRN constipation 09/10/24
ondansetron HCl 8 mg tablet 8 mg PO QID N/V 09/10/24
oxycodone 5 mg tablet 5 mg PO Q6HPRN PRN if advil does not work 09/10/24
Home Medication Changes
na
Pending Results: No
[2024-09-13 13:09] VITALS: BP 142/67
[2024-09-13] MEDS: NOVOLOG FLEXPEN-LOW RESISTANCE SC (13:25)
== END 2024-09-13 13:44 | disposition home or self-care (01) | DRG 809 ==
LOC: 2 NORTH 15:26
PROVIDERS: Registered Nurse; ADMITTING PHYSICIAN Internal Medicine; EMERGENCY PHYSICIAN Emergency Medicine; FAMILY PHYSICIAN Family Medicine; OTHER PHYSICIAN Internal Medicine Hematology & Oncology
PROC: 30233N1 Transfusion of Nonautologous Red Blood Cells into Peripheral Vein, Percutaneous Approach (ICD-10-PCS; 2024-09-10)
DX: D61.810 Antineoplastic chemotherapy induced pancytopenia (principal); C34.90 Malignant neoplasm of unspecified part of unspecified bronchus or lung; C78.7 Secondary malignant neoplasm of liver and intrahepatic bile duct; C79.51 Secondary malignant neoplasm of bone; N17.9 Acute kidney failure, unspecified; E87.20 Acidosis, unspecified; J84.9 Interstitial pulmonary disease, unspecified; I50.22 Chronic systolic (congestive) heart failure; I5A Non-ischemic myocardial injury (non-traumatic); E11.9 Type 2 diabetes mellitus without complications; I25.10 Atherosclerotic heart disease of native coronary artery without angina pectoris; J44.9 Chronic obstructive pulmonary disease, unspecified; K21.9 Gastro-esophageal reflux disease without esophagitis; I11.0 Hypertensive heart disease with heart failure; J98.4 Other disorders of lung; G47.33 Obstructive sleep apnea (adult) (pediatric); I72.3 Aneurysm of iliac artery; Z87.891 Personal history of nicotine dependence; Z88.8 Allergy status to other drugs, medicaments and biological substances; Z79.82 Long term (current) use of aspirin; I25.2 Old myocardial infarction; Z95.810 Presence of automatic (implantable) cardiac defibrillator; Z95.5 Presence of coronary angioplasty implant and graft; G47.30 Sleep apnea, unspecified; Z79.899 Other long term (current) drug therapy; Z11.52 Encounter for screening for COVID-19; E78.00 Pure hypercholesterolemia, unspecified; E83.51 Hypocalcemia; T45.1X5A Adverse effect of antineoplastic and immunosuppressive drugs, initial encounter
CPT/HCPCS: 36430; 71046; 76700; 80048; 80053; 82330; 82570; 82962; 83735; 83880; 84300; 84484; 85025; 85027; 86803; 86850; 86900; 86901; 86920; 87502; 87811; 93005; 94640; 96374; 99291; P9016

== ENCOUNTER 2024-10-17 14:52 | Inpatient (IN) | payer OTHER, SELFPAY ==
[2024-10-17] VITALS (7 sets, daily range): BP systolic 106–153; BP diastolic 57–85; BMI 22.4
--- NOTE | 2024-10-17 11:02 | ED.GENMED ---
History of Present Illness
General
Chief Complaint: Breathing Problem
Time Seen by Provider: 10/17/24 11:02
History of Present Illness
History of Present Illness:
TIME OF INITIAL ENCOUNTER: 11 AM
HPI: Patient came in from home by EMS as was primarily concerned of shortness of breath. He has a history of metastatic lung cancer on chemo known to [facility]. Family also reports a 'mild history of COPD' he has been having trouble with
swallowing recently and saw Dr. Bahena yesterday in which he is supposed to have swallowing studies as an outpatient next month. However symptoms have been rapidly worsening. He could not even take his pills today. There has been 2 pound weight
gain recently however reports that his chronic lower extremity edema is somewhat improved.. recently gave Lasix. He does not use oxygen at home. He has been coughing more recently.
EXAM:
GENERAL: Appears generally weak and debilitated
HEENT: Hearing aid present, hard of hearing
CARDIOVASCULAR: No murmurs, normal heart rate, regular rhythm, No chest wall tenderness
PULMONARY: Mild increased work of breathing with slightly decreased breath sounds heard equally
ABDOMEN: Soft with no peritoneal signs, no tenderness
NEUROLOGIC: Good strength all extremities, no coordination deficits
PSYCHIATRIC: Appropriate mental status, normal insight and judgement
EXTREMITIES: Nontender, 1+ bilateral lower extremity edema, moves all extremities equally
SKIN: No rash, no lesions
NUMBER AND COMPLEXITY OF PROBLEMS ADDRESSED AT THE ENCOUNTER
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
� Acute Exacerbation and/or Progression of Chronic Illness: This is an acute problem
� Differential Diagnosis includes: Anemia, CHF exacerbation, COPD exacerbation, pneumonia
AMOUNT AND/OR COMPLEXITY OF DATA TO BE REVIEWED AND ANALYZED
� I performed an independent evaluation of and my interpretation is:
EKG: V-paced 70, nonspecific ST abnormality
CT:
X-rays: Chest x-ray suggests some degree of increased pulmonary edema/pleural effusion
Laboratory Studies: White count normal, hemoglobin 8.4 which is near recent baseline after transfusion, platelet 119, chemistries relatively unremarkable, troponin lower than prior, BNP slightly lower than prior,
Other:
� Review of other/old records: The patient was admitted with MAY/pancytopenia and symptomatic anemia. He was given 2 units of blood last month. Pancytopenia was felt to be related to chemotherapy.
� Clinical information was obtained by an independent historian: I spoke to the at bedside
� Prescriptions/Medications Considered but not given:
� Further testing considered but not performed:
RISK OF COMPLICATIONS AND/OR MORBIDITY OR MORTALITY OF PATIENT MANAGEMENT
� Social determinants of health affecting care: Lives at home
� Discussion with other providers: Discussed case with Dr. Bahena and with Dr. Cruz; hospitalist, Dr. Lutz for admission.
� Escalation of care including admission/observation vs risk of discharge considered: The patient's room air sats are 91 to 93%. He is given nebs and steroids as he does have a history of COPD. The patient after nebs were given
says 'I feel fine'
ANY OTHER UPDATES:
1:50 PM: I gave the patient a sip of water and a few seconds later the water came right back up. He cannot tolerate p.o. and cannot safely be discharged. I discussed case with Dr. Page FRIAS tomorrow
Past History
Past History
ED Past Medical History: CAD, Cancer (Metastatic lung cancer), COPD, GERD, HTN, Hypercholesterolemia, NIDDM and OK
ED Past Surgical History: Cardiac (Pacer defibrillator) and Cholecystectomy
Social History
Tobacco: Former smoker
Alcohol: None
Drug: None
Personal:
Living: with family
Employment: Employed
Family History
Family History: Other (Noncontributory)
Phy Exam
Physical Exam
Physical Exam:
See HPI
Scores
Heart Failure Risk
Heart Failure Risk Score: Not Applicable
Course
Orders/Labs/Results
Orders:
Orders
10/17/24 11:05
Electrocardiogram (*1) Urgent
Reason for Study: Shortness of Breath
EKG- Treatment ONCE
10/17/24 11:10
Ipratropium/Albuterol Sulfate [Duoneb] 3 ml INH R NOW STA
MethylPREDNISolone PF [Solu-Medrol Pf] 125 mg IV NOW STA
10/17/24 11:12
CR Chest - 2 Views Urgent
Comment:
Reason For Exam: sob
10/17/24 11:17
Type+Screen Urgent
COVID-19 Antigen Urgent
Source: Nasal Swab
Complete Blood Count/With Diff Urgent
Comprehensive Metabolic Panel Urgent
Magnesium Urgent
NT-proBNP Urgent
Troponin I Urgent
Influenza A+B Rapid Molecular Urgent
ELMA Source: Nasal Swab
Specimen Description:
10/17/24 13:18
Furosemide [Lasix] 40 mg IV NOW STA
10/17/24 13:58
Speech Therapy Eval & Treat Urgent
10/17/24 14:28
Cefepime HCl [Maxipime] 2,000 mg IV NOW STA
Vancomycin [Vancocin] 1,500 mg 0.9% Sodium Chloride 500 ml [Nss] 500 ml IV NOW
10/17/24 14:29
Admit/Transfer Patient As Directed
Co-Sign Provider:
Level of Care: Inpatient admission
Assign to:: Telemetry
Physician / Group: Htay
Diagnosis: Pneumonia, Dysphagia
Reason for Telemetry: Subacute Heart Failure
Date to Stop Telemetry: 10/19/24
Time to Stop Telemetry: 11:00
Reason for Hospitalization: IV abx, Speech and GI evaluation
Expected length of stay greater than two midnights?: Yes
ELOS- Estimated Length of Stay in days: 3
I certify the patient meets the requirements for IP care: Yes
PRN Pain Medication Management As Directed
May give lesser potent ordered pain med per pt: Yes
preference::
Protocol:: Medication orders for pain may be administered in a
manner that supports deferring to patient preference
when the pt is:
- Requesting an ordered lesser potent pain medication.
Least to most potent pain medications are defined
as: acetaminophen < NSAID < tramadol < opioids
(morphine, oxycodone, hydromorphone).
- Requesting a lesser dose of the same medication IF
ORDERED.
- Requesting a less intrusive route of administration
if both routes are prescribed by the provider (PO <
IV).
10/17/24 14:30
Code Status As Directed
Resuscitation Status: Full Code
10/17/24 14:32
Piperacillin/Tazo 4.5 Gram [Zosyn] 4.5 gram in 100 ml IV NOW
10/17/24 17:00
Troponin I Q6H
10/17/24 23:00
Troponin I Q6H
10/19/24 11:00
DC Protocol for Telemetry ONCE
Abnormal Lab Results
10/17/24
11:17
RBC 2.51 L 10^6/uL
(4.70-6.10)
Hgb 8.4 L g/dL
(13.0-18.0)
Hct 27.2 L %
(39.0-52.0)
MCV 108.4 H fL
(80.0-94.0)
MCH 33.5 H pg
(27.0-31.0)
MCHC 30.9 L g/dL
(33.0-37.0)
RDW 21.2 H %
(11.5-14.5)
Plt Count 119 L 10^3/uL
(130-400)
MPV 10.6 H fL
(7.4-10.4)
Abs Immat Gran (auto) 0.1 H 10^3/uL
(0-0.05)
Absolute Neuts (auto) 7.3 H 10^3/uL
(1.4-6.5)
Absolute Lymphs (auto) 0.3 L 10^3/uL
(1.2-3.4)
Immature Gran % 0.6 H %
(0-0.5)
Neutrophils % 88.3 H %
(42.2-75.2)
Lymphocytes % 3.8 L %
(20.5-51.1)
Glucose 168 H mg/dl
(70-99)
Calcium 8.3 L mg/dl
(8.4-10.2)
Total Bilirubin 1.4 H mg/dl
(0.2-1.3)
Troponin I 0.036 H* ng/ml
Total Protein 6.0 L g/dl
(6.3-8.2)
10/17/24 11:17
10/17/24 11:17
Vital Signs
Initial and Last Documented VS:
Initial Vital Signs
Temp Pulse Resp BP Pulse Ox
36.4 C 70 16 153/85 93
10/17/24 10:52 10/17/24 10:52 10/17/24 10:52 10/17/24 10:52 10/17/24 10:52
Last Documented Vital Signs
Temp Pulse Resp BP Pulse Ox
36.4 C 70 24 148/75 97
10/17/24 10:52 10/17/24 13:15 10/17/24 13:15 10/17/24 13:03 10/17/24 13:15
*Critical Care Note
Total Time (30-74mins, 75-104mins- exclusive of procedures): Not Applicable
ED Attending Note
-
Portions of this chart may have been created with voice recognition software.� Occasional wrong word or��sound alike� substitutions may have occurred due to the inherent limitations of voice recognition software.
Discharge Plan
Departure
Patient Disposition: Admit
Date of Disposition: 10/17/24
Time of Disposition: 13:23
Presentation/result/management discussed w/ accepting MD/DO: Hospitalist
Discharge Problem:
Acute exacerbation of chronic obstructive pulmonary disease
Prescriptions:
No Action
aspirin 81 MG tablet,delayed release (DR/EC)
81 mg PO HS
rosuvastatin 10 mg Tablet
10 mg PO DAILY
albuterol sulfate 90 mcg/actuation Hfa Aerosol Inhaler
2 puff INHALATION R Q4HPRN PRN (Reason: SOB)
guaifenesin 100 mg/5 mL Liquid
200 mg PO Q4HPRN PRN (Reason: chest congestion)
cyanocobalamin (vitamin B-12) 1,000 mcg Tablet
1,000 mcg PO HS
pantoprazole 40 mg tablet,delayed release (DR/EC)
40 mg PO BID
folic acid 1 mg tablet
1 mg PO DAILY
Anoro Ellipta 62.5-25 mcg/actuation blister with device
1 inh INHALATION R DAILY
ondansetron HCl 8 mg Tablet
8 mg PO QIDPRN PRN (Reason: nausEA)
dexamethasone 4 mg Tablet
4 mg PO UD
Rx Instructions:
take 4mg bid the day before and the day after chemo treatment
oxycodone 5 mg Tablet
5 mg PO Q6HPRN PRN (Reason: SEVERE PAIN)
clotrimazole 10 mg Nora
10 mg MUCOUS MEMBRANE 5/D
metoprolol succinate [Toprol XL] 50 mg Tablet Extended Release 24 Hr
50 mg PO BID
olanzapine 5 mg Tablet
5 mg PO DIRECTED
Rx Instructions:
TAKE ONE TABLET THE DAY BEFORE AND AFTER CHEMO TREATMENT
furosemide [Lasix] 20 mg Tablet
20 mg PO DAILYPRN PRN (Reason: FLUID RETENSION)
potassium chloride 20 mEq Tablet Extended Release
20 meq PO DAILY
Referrals:
Ira Coleman, DO [Family Provider] -
Interventions
Interventions:
*Risk Screen - Suicide Last Done: 10/17/24 10:57
*General Assessment Last Done: 10/17/24 10:57
*Neglect/Abuse Screening Last Done: 10/17/24 10:57
*ED COVID-19 Vaccine History Last Done: 10/17/24 10:57
ED- Cardiac Assessment Last Done: 10/17/24 10:58
ED- Pulmonary Assessment Last Done: 10/17/24 10:58
Discharge Date and Time
Print Language: KHMER
[2024-10-17] MEDS: SOLU-MEDROL PF 125 MG IV (11:23)
[2024-10-17] MEDS: DUONEB 3 ML INH (11:23)
[2024-10-17 11:29] LABS: % Basophils 0.1 % (0-2); % Eosinophils 0.1 % (0-6); % Immature Granulocytes 0.6 % (0-0.5); % Lymphocytes 3.8 % (20.5-51.1); % Monocytes 7.1 % (1.7-9.3); % Neutrophils 88.3 % (42.2-75.2); Absolute Immature Granulocytes 0.1 10^3/uL (0-0.05); Absolute Lymphocytes 0.3 10^3/uL (1.2-3.4); Absolute Monocytes 0.6 10^3/uL (0.1-0.6); Absolute Neutrophils 7.3 10^3/uL (1.4-6.5); Hematocrit 27.2 % (39.0-52.0); Hemoglobin 8.4 g/dL (13.0-18.0); Mean Corp Hgb Conc. 30.9 g/dL (33.0-37.0); Mean Corpuscular Hgb 33.5 pg (27.0-31.0); Mean Corpuscular Volume 108.4 fL (80.0-94.0); Mean Platelet Volume 10.6 fL (7.4-10.4); Nucleated Red Blood Cells % 0 % (-); Platelet Count 119 10^3/uL (130-400); Red Blood Cell Count 2.51 10^6/uL (4.70-6.10); Red Cell Dist. Width 21.2 % (11.5-14.5); White Blood Cell Count 8.2 10^3/uL (4.8-10.8)
[2024-10-17 11:41] LABS: ALT (SGPT) 24 U/L (0-50); AST (SGOT) 36 U/L (17-59); Albumin 3.8 g/dl (3.5-5.0); Alkaline Phosphatase 126 U/L (38-126); Blood Urea Nitrogen 17 mg/dl (9-20); Calcium 8.3 mg/dl (8.4-10.2); Carbon Dioxide 28 mmol/L (22-30); Chloride 104 mmol/L (98-107); Glucose 168 mg/dl (70-99); Magnesium 2.1 mg/dl (1.6-2.3); Potassium 4.2 mmol/L (3.5-5.1); Sodium 139 mmol/L (135-145); Total Bilirubin 1.4 mg/dl (0.2-1.3); eGFR > 60.00
[2024-10-17 11:44] LABS: COVID-19 Antigen Negative (Negative)
[2024-10-17 11:57] LABS: NT-proBNP 8980 pg/ml; Troponin I 0.036 ng/ml
[2024-10-17] MEDS: LASIX 40 MG IV (13:23)
--- NOTE | 2024-10-17 13:34 | HPS.HSE ---
Family Physician
-
Family Physician: Ira Coleman
Chief Complaint
-
Shortness of Breath
History of Present Illness
Patient is a 79 y/o male past medical history of metastatic lung cancer, COPD, ILD, HFmrEF, and CAD who presents with increased shortness of breath. Patient reports increased cough. He reports some lower extremity edema but notes it is improved
compared to last week. Recently he has been unable to oral intake. This has gotten progressively worse and today he was an able to tolerate his pills, and unable to tolerate water. He is still able to management his secretions. He denies any
fevers, sweats or chills.
Medical History
Past Medical History
Past Medical History: Reports Other
Additional Past Medical History:
Metastatic Lung Cancer
Pancytopenia due to Chemotherapy
COPD
Interstitial Lung Disease
Coronary Artery Disease s/p Stent
Chronic HFmrEF
Essential Hypertension
Hyperlipidemia
GERD
Obstructive Sleep Apnea
Past Surgical History: Reports Other
Additional Past Surgical History:
Cardiac Stents
Cholecystectomy
Social History
Tobacco: Former Smoker
Alcohol: Former
Drug: None
Personal:
Living: With Family
Family History
Family History: Not pertinent
Allergies / Home Medications
Allergies reflects when Allergies were last updated in [email or web address].
Home Medications with original date entered in [email or web address]
Allergy/Medication List:
Allergies
Allergy/AdvReac Type Severity Reaction Status Date / Time
fenofibrate Allergy Unknown Verified 09/10/24 20:29
lisinopril Allergy Unknown Verified 09/10/24 20:29
omeprazole Allergy Unknown Verified 09/10/24 20:29
Home Medications
aspirin 81 mg tablet,delayed release 81 mg PO HS Blood Clot Prevention/Tx 08/14/15
rosuvastatin 10 mg tablet 10 mg PO DAILY High Cholesterol 12/30/23
albuterol sulfate 90 mcg/actuation aerosol inhaler 2 puff inhalation R Q4HPRN PRN SOB 01/02/24
guaifenesin 100 mg/5 mL oral liquid 200 mg PO Q4HPRN PRN chest congestion 01/17/24
cyanocobalamin (vitamin B-12) 1,000 mcg tablet 1,000 mcg PO HS Supplement 08/03/24
folic acid 1 mg tablet 1 mg PO DAILY Supplement 08/03/24
pantoprazole 40 mg tablet,delayed release 40 mg PO BID GERD 08/03/24
umeclidinium 62.5 mcg-vilanterol 25 mcg/actuation powdr for inhalation (Anoro Ellipta) 1 inh inhalation R DAILY Lung/Breathing Issues 08/03/24
dexamethasone 4 mg tablet 4 mg PO UD INFLAMMATION 09/10/24
ondansetron HCl 8 mg tablet 8 mg PO QIDPRN PRN nausEA 09/10/24
oxycodone 5 mg tablet 5 mg PO Q6HPRN PRN SEVERE PAIN 09/10/24
clotrimazole 10 mg mark 10 mg mucous membrane 5/D 10/17/24
furosemide 20 mg tablet (Lasix) 20 mg PO DAILYPRN PRN FLUID RETENSION 10/17/24
metoprolol succinate 50 mg tablet,extended release 24 hr (Toprol XL) 50 mg PO BID 10/17/24
olanzapine 5 mg tablet 5 mg PO DIRECTED 10/17/24
potassium chloride 20 mEq tablet,extended release 20 meq PO DAILY 10/17/24
Review of Systems
-
A 12 point ROS was completed and negative except as noted: Yes
Constitutional: Denies Fever
Respiratory: Reports Cough and Trouble Breathing
Cardiac: Denies Chest Pain or Palpitations
Abdomen/GI: Denies Abdominal Pain, Nausea, Vomiting or Diarrhea
Physical Exam
Vital Signs
Vital Signs
Temp Pulse Resp BP Pulse Ox
97.6 F 70 24 148/75 97
10/17/24 10:52 10/17/24 13:15 02/19/25 13:15 10/17/24 13:03 10/17/24 13:15
Physical Exam
General: Comfortable and Conversant
HEENT: NormoCephalic, Anicteric, Atraumatic and Oxygen (Nasal Cannula)
Respiratory: Rhonchi (Right Middle and Lower Regions)
Cardiac: S1/S2 and Regular Rhythm
GI: Soft and Non Tender
Rectal: Deferred by Provider
Genito-urinary: No Nickerson
Musculoskeletal: No Clubbing, No Cyanosis and Other (Trace edema bilateral lower extremities)
Skin: Warm and Dry
Neuro: Awake, Alert, Oriented and Nonfocal/grossly intact
Psych: Calm
Laboratory Results
-
10/17/24 11:17
10/17/24 11:17
Laboratory Results
Total Bilirubin 1.4 mg/dl (0.2-1.3) H 10/17/24 11:17
AST 36 U/L (17-59) 10/17/24 11:17
ALT 24 U/L (0-50) 10/17/24 11:17
Alkaline Phosphatase 126 U/L (38-126) 10/17/24 11:17
Troponin I 0.036 ng/ml H* 10/17/24 11:17
Chest X-Ray:
New findings suggesting right lower lobe and medial right upper lobe pneumonia.
Tiny bilateral pleural effusions. Progressed.
Mild cardiomegaly. Stable
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 Stable
Data Reviewed
-
Diagnostic Radiology: Report Reviewed by me
Lab Data: Labs Reviewed by me
Impression/Plan
-
Pneumonia, possibly aspiration
-Continue vancomycin and Zosyn
Dysphagia
-GI consulted and planning for possible EGD tomorrow
-Consult Speech Therapy
-Continue NPO
-Continue Protonix 40mg IV BID
-Add Carafate QID if patient able to tolerate
Elevated Troponin, suspect chronic elevation
-Continue to trend
Chronic HFmrEF
-Echo Aug 2024: Normal left ventricular chamber size with mildly reduced systolic function. LVEF 46%.
-BNP is elevated compared to July, but decreased compared to August
-Patient received Lasix 40mg IV in ED - Hold on further diuretics
-Monitor Daily Weights
Metastatic Lung Cancer - Managed at [facility]
-Patient received chest radiation for bony mets in Apr 2024
-Last immunotherapy Oct 11
Pancytopenia due to Chemotherapy
-Count Stable
COPD / Interstitial Lung Disease
-Continue Anoro Ellipta and DuoNeb PRN
Coronary Artery Disease s/p Stent
-Resume aspirin when able to tolerate oral meds
Essential Hypertension
-Transition Toprol XL to Lopressor 5mg IV q6H until able to resume oral meds
Hyperlipidemia
-Hold Crestor until able to resume oral meds
DVT proph: Lovenox
Code Status: Full Code
--- NOTE | 2024-10-17 13:46 | CON.GI ---
Addendum entered and electronically signed by Smiley Campbell Do, MD 10/17/24 16:47:
I saw and examined the patient.
The MOTION PICTURE PROJECTIONIST APPRENTICE's note was reviewed and I agree with the note.
Comment: Goran is a 79yo M with h/o CAD s/p stents, CHF and lung cancer with metastasis to liver and bones who presents for shortness of breath and dysphagia to solids and liquids. He was seen by GI Dr Bahena yesterday in our office. Dysphagia
started 6wks ago. Last chest XRT was in May 2024. Last chemo was 1 week ago. He is planned to have it dose reduced to just Keytruda. He denies recent abx. Vitals stable exam chronically ill appearing M in NAD conversant, diffuse bruising
over arms bilaterally. abd distension. decrease BS bilaterally. Labs reviewed.
Impression
- Dysphagia to solids and liquids
Suspect related to chest XRT, mucositis related to chemo or tumor metastasis
Also consider infectious or acidic esophagitis
- SOB
- h/o CHF
- PNA
- Lung cancer with mets to liver and bones
- CAD s/p stents
- DM
- ICD
- COPD
Recommendations
- Protonix IV BID
- Add carafate QID
- NPO for now ok for meds and sips
- Anticipate EGD once respiratory status improves. Will reassess tomorrow
Will follow with you
Original Note:
Consultation
-
Date/Time Consultation Requested: 10/17/24 1315
Date/Time Consultation Performed: 10/17/24 1345
Requesting Provider: Hansel Abbott DO
Performing Provider: MARY Haines, Smiley Cruz MD
Reason for Consultation: dysphagia
Medical History
Chief Complaint / HPI
Chief Complaint: dysphagia
History of Present Illness:
Pt is a 79-year-old male with a past medical history of HTN, HLD, DM, hx of prior IL, CAD (s/p LAD and RCA stents 2013), HFrEF with ICM (w/ EF 45-50%), bifascicular block, NSVT (s/p ICD), mild/moderate mitral regurgitation, anemia with obscure GI
bleed with capule/ SB enteroscopy with [facility] with cauterization in 2014, prior estelle, COPD, JD (on CPAP), and metastatic NSCLC with follow with Dr. Vo at [facility] (radiation til May, on chemo last 09/22 with Immunotherapy 10/11, mets to the
bone and liver) complicated by pancytopenia (due to chemotherapy, recent hospitalization on 08/2024) who was recently referred to the GI office by his PCP due to concern for dysphagia and seen this week but now with worsening symptoms with inability
to swallow and presents to ER. In review he is noted with 6 week with worsening dysphagia with liquid and solids. He admits to control of secretion but note spitting up during evaluation. Pt admits to taking guaifenesin on a regular basis with
cough at night. He is also noted with shortness of breath and hypoxia in ER. He does have chronic GERD on chronic PPI BID. Per office notes there was also concern for oral thrush by ENT. He take occasional Miralax for constipation. Pt otherwise
Denies any odynophagia, abdominal pain, diarrhea or rectal bleeding. No other NSAIDs. distant hx ETOH use 20 + years but no recent significant alcohol. On admission noted with hbg 8.4 similar to August labs, platelet 119 up for 20-30 range,
glucose 168, bili 1,4, AST 36, ALT 24, alk phos 126 troponin 0.036 otherwise stable labs.
Of note, he was previously admitted to [facility] from 09/10 to 09/13/2024 due to concern for symptomatic anemia felt secondary to chemotherapy and found to have an MAY as well with a Basketball Coach 1.9. He was without any evidence of overt GI bleeding
and received 2 uPRBCs for a Hgb 6.7 that improved to a Hgb 8.1 at time of discharge. His pancytopenia was felt to be related due to chemo and was advised to follow up with both his Oncologist along with his Scientific Programmer Analyst as well. Prior HOT DIP GALVANIZER evaluation
during his hospitalization back on 09/10/2024 noted, 'Pt exhibits oropharyngeal swallow that is grossly WFL, however did endorse difficulty in relation to copious foamy, thick, secretions. ? if related to chemo/lung CA. Pt demonstrated no overt s/sx
of aspiration across PO trials and 3oz swallow screen. Pt remains at increased risk of aspiration in relation to pulmonary status 2/2 metastatic lung cancer. Pt also remains at risk for post-prandial aspiration given hx of GERD that reported is
not well managed despite PPI.' Ultimately he was advised IDDSI level� 7 (regular) solids and thin liquids, medications as tolerated, general aspiration precautions, along with conservatives measures with oral care.
Past Medical History
Past Medical History: Arrhythmias (bifasicular block, NSVT), Cancer (metastatic Non small cell lung CA s/p chemo/radiation, immunotherapy ), CHF, COPD, GERD, HTN, Hypercholesterolemia, NIDDM, IL, Valvular Disease (mild to mod MR) and Other (BPH,
sleep apnea, anemia with prior GI bleeding with SB angioectasia with cauterization at [facility])
Past Surgical History: Cardiac (stents/pacer/ICD) and Cholecystectomy
Social History
Tobacco: Former Smoker
Alcohol: Former (20 + years ago)
Drug: None
Personal:
Living: With Family
Family History
Family History: Other (father hx IL, mother dementia, afib)
Allergies / Home Medications
Allergy/AdvReac Type Severity Reaction Status Date / Time
fenofibrate Allergy Unknown Verified 09/10/24 20:29
lisinopril Allergy Unknown Verified 09/10/24 20:29
omeprazole Allergy Unknown Verified 09/10/24 20:29
�Medication �Instructions �Recorded
aspirin 81 mg tablet,delayed 81 mg PO HS Blood Clot 08/14/15
release Prevention/Tx
rosuvastatin 10 mg tablet 10 mg PO DAILY High Cholesterol 12/30/23
albuterol sulfate 90 mcg/actuation 2 puff inhalation R Q4HPRN PRN SOB 01/02/24
aerosol inhaler
guaifenesin 100 mg/5 mL oral liquid 200 mg PO Q4HPRN PRN chest 01/17/24
congestion
cyanocobalamin (vitamin B-12) 1,000 mcg PO HS Supplement 08/03/24
1,000 mcg tablet
folic acid 1 mg tablet 1 mg PO DAILY Supplement 08/03/24
pantoprazole 40 mg tablet,delayed 40 mg PO BID GERD 08/03/24
release
umeclidinium 62.5 mcg-vilanterol 1 inh inhalation R DAILY 08/03/24
25 mcg/actuation powdr for Lung/Breathing Issues
inhalation (Anoro Ellipta)
dexamethasone 4 mg tablet 4 mg PO UD INFLAMMATION 09/10/24
ondansetron HCl 8 mg tablet 8 mg PO QIDPRN PRN nausEA 09/10/24
oxycodone 5 mg tablet 5 mg PO Q6HPRN PRN SEVERE PAIN 09/10/24
clotrimazole 10 mg mark 10 mg mucous membrane 5/D 10/17/24
furosemide 20 mg tablet (Lasix) 20 mg PO DAILYPRN PRN FLUID 10/17/24
RETENSION
metoprolol succinate 50 mg 50 mg PO BID 10/17/24
tablet,extended release 24 hr
(Toprol XL)
olanzapine 5 mg tablet 5 mg PO DIRECTED 10/17/24
potassium chloride 20 mEq 20 meq PO DAILY 10/17/24
tablet,extended release
Review of Systems
-
History Source: Patient and Family
Constitutional: Reports Weight Gain (but noted with fluid overload )
EENT: Reports Other (cough with congestion, + severe dysphagia)
Respiratory: Reports Cough and Trouble Breathing
Abdomen/GI: Reports Constipated (at time )
: Reports No Symptoms
Musculoskeletal: Reports No Symptoms
Skin: Reports No Symptoms
Neurological: Reports Weakness
Endocrine: Reports No Symptoms
Hematologic/Lymphatic: Reports No Symptoms
Vital Signs
Temp Pulse Resp BP Pulse Ox
97.6 F 70 24 148/75 97
10/17/24 10:52 10/17/24 13:15 10/17/24 13:15 10/17/24 13:03 10/17/24 13:15
Physical Exam
Exam
General: Other (chronic ill appearing with some shortness of breath and bruising throughout extremities)
HEENT: Normocephalic
Respiratory: Rhonchi
Cardiac: Regular Rhythm and Peripheral Edema
GI: Soft, Non Tender, Non Distended and Other (noted with spitting up secretion into bag during evaluation )
Musculoskeletal: No Clubbing and No Cyanosis
Skin: Warm and Dry
Neuro: Awake, Alert and AO x 3
Psych: Calm
Results
WBC 8.2 10^3/uL (4.8-10.8) 10/17/24 11:17
Hgb 8.4 g/dL (13.0-18.0) L 10/17/24 11:17
Hct 27.2 % (39.0-52.0) L 10/17/24 11:17
MCV 108.4 fL (80.0-94.0) H 10/17/24 11:17
Plt Count 119 10^3/uL (130-400) L 10/17/24 11:17
Absolute Neuts (auto) 7.3 10^3/uL (1.4-6.5) H 10/17/24 11:17
Sodium 139 mmol/L (135-145) 10/17/24 11:17
Potassium 4.2 mmol/L (3.5-5.1) 10/17/24 11:17
Chloride 104 mmol/L (98-107) 10/17/24 11:17
Carbon Dioxide 28 mmol/L (22-30) 10/17/24 11:17
BUN 17 mg/dl (9-20) 10/17/24 11:17
Creatinine 1.1 mg/dL (0.7-1.3) 10/17/24 11:17
Calcium 8.3 mg/dl (8.4-10.2) L 10/17/24 11:17
Total Bilirubin 1.4 mg/dl (0.2-1.3) H 10/17/24 11:17
AST 36 U/L (17-59) 10/17/24 11:17
ALT 24 U/L (0-50) 10/17/24 11:17
Alkaline Phosphatase 126 U/L (38-126) 10/17/24 11:17
Pertinent Prior GI Records / Data Review:
10/17/24- CXR
New findings suggesting right lower lobe and medial right upper lobe pneumonia.
Tiny bilateral pleural effusions. Progressed.
Mild cardiomegaly. Stable
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 Stable
09/11/24- US abdomen
Hepatic fatty infiltration.
Prior cholecystectomy.
Tiny bilateral pleural effusions. Stable
2 complex left renal cyst. Dedicated CT of the kidneys pre- and post-IV contrast or MRI examination recommended.
Prior CT Angiogram Chest w/ Contrast (PE, lunc cancer mets to bone) 08/02/2024- Impression: No PE, new and increasing bilateral pleural effusions moderate on the right and small on the left, no significant change in R pulmonary nodules with diffuse
interlobular septal thickening and patchy opacities at the R lung possibly related to lymphangitic carcinomatosis. Diffuse sclerotic osseous metastases are grossly unchanged, this could be better assessed by bone scan as clinically indicated.
Esophagus was reportedly normal
Colonoscopy (high risk due to colon polyps, good prep) 09/04/2020- Impression: Diverticulosis in the entire examined colon, single non-bleeding colonic angioectasia treated with APC, non-bleeding external hemorrhoids. Advised a repeat colonoscopy in 5
years for surveillance
EGD ([facility]) 11/27/2014- Impression: Normal esophagus, biopsies obtained (path w/ benign esophageal squamous mucosa showing minimal, non-specific chronic inflammation without eosinophils), Z-line irregular at 40 cms and biopsied (path w/ no dysplasia or
globet cell metaplasia, minimal to mild chronic inflammation and passive vascular congestion, no squamous esophagus identified on sampling), mild to moderate gastritis, biopsied (path w/ mild chronic gastritis with smooth muscle hypertrophy of the
lamina propria, non-specific change commonly associated with chemical/reactive gastropathy), bilious gastric fluid with fluid aspiration performed, and normal examined duodenum, biopsied (path w/ normal duodenal mucosa without pathology alteration,
(-) for Celiac disease).
Colonoscopy (screening, incidental HECTOR, good prep) 11/27/2014- Impression: Two 6 to 7 mm polyps in the rectum, biopsied (path with HPP and adenomatous polyp). Diverticulosis in the sigmoid, descending and transverse colon. Non-bleeding external
hemorrhoids.
Prior hx obscure GI bleed in 2014 and evaluation included a capsule study that showed an angiectasia in the duodenum which required a small bowel enteroscopy at [facility] with cauterization of this lesion (no records of
this- mentioned during prior OV note with Dr. Stevens).
Assessment / Plan
-
Pt is a 79-year-old male with a past medical history of HTN, HLD, DM, hx of prior IL, CAD (s/p LAD and RCA stents 2013), HFrEF with ICM (w/ EF 45-50%), bifascicular block, NSVT (s/p ICD), mild/moderate mitral regurgitation, anemia with obscure GI
bleed with capule/ SB enteroscopy with [facility] with cauterization in 2014, prior estelle, COPD, JD (on CPAP), and metastatic NSCLC with follow with Dr. Vo at [facility] (radiation til May, on chemo last 09/22 with Immunotherapy 10/11, mets to the
bone and liver) complicated by pancytopenia (due to chemotherapy, recent hospitalization on 08/2024) who was recently referred to the GI office by his PCP due to concern for dysphagia and seen this week but now with worsening symptoms and presents to
ER with inability to swallow. In review he is noted with 6 week with worsening dysphagia with liquid and solids. He admits to control of secretion but note spitting up during evaluation. Pt admits to taking guaifenesin on a regular basis with
cough at night. He is also noted with shortness of breath and hypoxia in ER. CXR concerning for PNA. He does have chronic GERD on chronic PPI BID. Per office notes there was also concern for oral thrush by ENT. He take occasional Miralax for
constipation. Pt otherwise Denies any odynophagia, abdominal pain, diarrhea or rectal bleeding. No other NSAIDs. distant hx ETOH use 20 + years but no recent significant alcohol. On admission noted with hbg 8.4 similar to August labs, platelet
119 up for 20-30 range, glucose 168, bili 1,4, AST 36, ALT 24, alk phos 126 troponin 0.036 otherwise stable labs. Last EGD 11/2014 with a normal esophagus and biopsies with non-specific chronic inflammation which were (-) for EoE during that time.
-dysphagia with solid and liquids
-regurgitation with inability to tolerate PO on admission
-hypoxemia with PNA on CXR on Admission and CHF/COPD exacerbation in differential
-elevated troponin
-anemia with recent pancytopenia with chemo
-GERD on chronic PPI therapy
-recent noted concern for thrush
-metastatic NSCLCA with treatment at [facility] s/p radiation completed in May, chemo last in August and recent Immunotherapy
other med problems:
-DM
-hx IL/CAD with prior stent
-ICD/pacer
-JD
-obscure GI bleed with SB ectasias
-prior estelle
PLAN:
Pt with current PNA and concern for worsening dysphagia with inability to tolerate solids or liquid
Etiology of dysphagia oropharygeal vs esophageal related -- possible thrush, radiation induced esophagitis, stricture, ext compression with known lung CA vs other
cont NPO for now
medical optimization on cardiopulm status with current PNA /hypoxemia
when improved consider EGD vs esophagram
for speech eval
carafate added if able to tolerate
cont PPI BID
add miralax PRN with hx prior constipation as carafate can be constipation
when improved OP follow up at [facility] for continued treatment
-
-
Thank you for consultation and allowing me to participate in the patient's care. Please call the recreation worker GI physician during the after hours with any questions or concerns.
--- NOTE | 2024-10-17 13:55 | W.PN.UPDATE ---
Update Note
Progress Note Update
This note serves as an addendum to the H&P by rn trauma SAILAJA Lori DUNNE
HPI
79M former smoker HX metastatic lung CA, COPD, chr HFmrEF, seen at ER;
- SoB and not tolerating even PO fluis
- more hypoxic with POx low 90s on RA
- Pending GAS METER INSTALLER evaluation with VFSS at [facility]
PHX; as above
Vital Signs
Temp Pulse Resp BP Pulse Ox
97.6 F 70 24 148/75 97
10/17/24 10:52 10/17/24 13:15 10/17/24 13:15 10/17/24 13:03 10/17/24 13:15
PE
Gen: NAD, hoarse voice
HEENT:anicteric
Neck: supple
Lungs: symmetric but very poor AE. No wheeze
Cor: RRR S1 S2
Abdomen: soft abdomen
RESIDENTIAL SUBCONTRACTOR: AAO3
MS: b/l Saira edema
Psych: nl mood and affect
Abnormal Lab Results
10/17/24
11:17
RBC 2.51 L
Hgb 8.4 L
Hct 27.2 L
MCV 108.4 H
MCH 33.5 H
MCHC 30.9 L
RDW 21.2 H
Plt Count 119 L
MPV 10.6 H
Abs Immat Gran (auto) 0.1 H
Absolute Neuts (auto) 7.3 H
Absolute Lymphs (auto) 0.3 L
Immature Gran % 0.6 H
Neutrophils % 88.3 H
Lymphocytes % 3.8 L
Glucose 168 H
Calcium 8.3 L
Total Bilirubin 1.4 H
Troponin I 0.036 H*
Total Protein 6.0 L
nl BMP
TPNI 0.036
[place] 8980 [place] [id number] in Aug 2024
CXR : my read ? PPA at [facility]
Last ECHO 09/07/24 :
LVEF 46%
Basal to mid inferior and inferolateral hypokinesis.
Normal right ventricular size and function.
Mild mitral regurgitation.
Mild tricuspid regurgitation with top normal pulmonary artery pressure (PASP 36
mmHg).
Last hospitalist admission:
DATE OF ADMISSION: 09/10/2024 - DATE OF DISCHARGE: 09/13/2024
DISCHARGE DIAGNOSES:
1. Acute kidney injury.
2. Pancytopenia.
3. Symptomatic anemia.
ASSESSMENT & PLAN
Dysphagia
Not tolerating to sips of water
However he has been clearing his secretions
Of note: Has schedule GAS METER INSTALLER eval with VFSS as well on Tuesday at [facility] along with a GI eval in November, but was trying to coordinate this faster.
- Speech and swallow evaluation to consider VFSS
- NPO for now for aspiration precaution
- IVF
- PPI and Carfate
- seen Dr Shamar Bahena (GI) - consulted
Dyspnea
Prelim CXR reports [facility] PNA presumed aspiration
Acute Hypoxic RI at low 90s
HJX COPD ; NOT home O2 dependent
- Empiric IV vanco and Zosyn
- Duo Nebs tid PRN
- f/u final CXR report
Chr HFmrEF with LVEF 46 % in Aug 2024
HX mild MR
- IV Lasix 40 mat ER - then cont. PO 40 daily
- c/w PYA KCL 20 daily
- daily Wt , IOs
- daily BMP
HLD
- stable
- on COMMUNITY CASE MANAGER Rosuvastatin
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
- recovering mild thrombocytopenia - low at 25 on 09/11/24
- suspect s/p chemo in early aug 2024
- c/w COMMUNITY CASE MANAGER Oxycodone
- trend CBC
Elevated TPNI
- suspect NlMI
- Trend TPNI
DVT Px: LMWH
Full code
IP TLM
--- NOTE | 2024-10-17 15:40 | PTOTSP ---
Speech Therapy Evaluation:
Pt presents with clinical signs of oropharyngeal dysphagia, likely acute in nature given functional bedside swallow exam in 2024 with rapid worsening in swallow function since, impacting pt's ability to drink water or take pills. No s/sx of
aspiration with trials of ice chips, though trials limited given reported severity of symptoms. Pt demonstrated wet vocal quality, which was consistent with and without PO. CXR with RLL and RML PNA. Pt also with multiple risk factors of prandial and
post-prandial aspiration including metastatic lung CA, COPD, GERD.
Per OP GI note, 'Etiology seems most consistent with esophageal dysphagia, however I do think there may be an underlying oropharyngeal component as well given his coughing fits, throat clearing, and mucous production during these episodes.'
Recommend:
1. NPO
2. Medications non-oral
3. Oral care 3x/daily
4. VSE to further assess oropharyngeal swallow function. Further recommendations pending results of VSE.
[2024-10-17] MEDS: ZOSYN 100 IV ×2 (16:15→22:58)
--- NOTE | 2024-10-17 16:15 | PTCARENOTE ---
Received patient from ED via stretcher. Pt AAOX3. [place]. V-paced on study coordinator. Pox: 98% 1L NC. at bedside. Call zafar within reach. Plan of care ongoing.
--- NOTE | 2024-10-17 16:24 | PHA.VAN.IN ---
Assessment
- Assessment
Renal Function: Appears similar to baseline
Maximum Temperature: 97.6
Concomitant Antimicrobials: piperacillin/tazobactam
AUC Dosing Plan
- Dosing Variables
Dosing Weight (kg): 62.9
Dosing CrCl (ml/min): 50
Vd coefficient (L/kg): 0.7
- Empiric Dosing
Initial / Loading Dose: vancomycin 1500 mg x 1
Maintenance Regimen: vancomycin 1000 mg q24H
Estimated AUC (mcg*h/mL): 511
Estimated Peak (mcg*h/mL): 34.3
Estimated Trough (mcg/ml): 12
Estimated Half Life (H): 15.1
- Monitoring
No levels ordered at this time: consider levels in next few days
MRSA Screen: Ordered per protocol (result pending)
Pharmacokinetics Vancomycin I
- -
Patient Age: 79
Patient Sex: Male
Vancomycin Day #: 1
Indication: Pulmonary/Respiratory
Requesting Provider: Aaliyah Delatorre
Pertinent Antimicrobial Allergies:
nkda
Height / Weight:
Height 5 ft 6 in
Actual Weight 62.868 kg
IBW in k.8
Pertinent Past Medical History: metastatic lung CA, COPD
- Vital Signs / Lab Results
Temp Pulse Resp BP Pulse Ox
97.3 F 71 16 121/65 98
10/17/24 16:12 10/17/24 16:12 10/17/24 16:12 10/17/24 16:12 10/17/24 16:12
Lab Results - Hematology
10/17/24
11:17
WBC 8.2
Lab Results - Chemistry
10/17/24
11:17
BUN 17
Creatinine 1.1
Albumin 3.8
Microbiology Results
10/17/24 11:17 Influenza Types A & B ([facility]) - Final
Nasal Swab Negative for Influenza A & B, NAAT
Negative results must be combined with clinical observations
and patient history.
Nucleic Acid Amplification test (NAAT)performed on the
[employer] platform.
[2024-10-17] MEDS: VANCOCIN 530 MG IV (16:49)
[2024-10-17 17:31] LABS: Troponin I 0.036 ng/ml
[2024-10-17] MEDS: LOVENOX 40 MG SC (17:52)
[2024-10-17] MEDS: CARAFATE SUSPENSION 1 GM PO ×2 (17:52→22:58)
[2024-10-17] MEDS: LOPRESSOR 5 MG IV ×2 (17:53→23:08)
[2024-10-17] MEDS: NSS (PRESERVATIVE FREE) 10 ML IV (19:43)
[2024-10-17] MEDS: PROTONIX IV 40 MG IV (19:43)
[2024-10-18 00:01] LABS: Troponin I 0.038 ng/ml
--- NOTE | 2024-10-18 02:37 | PTCARENOTE ---
Pt. having episodes of delirium, agitation, able to be re oriented.
[2024-10-18] MEDS: ZOSYN 100 IV ×4 (03:12→22:42)
[2024-10-18 03:26] VITALS: BP 148/74
[2024-10-18 04:57] VITALS: BMI 22.1
[2024-10-18] MEDS: VANCOCIN 200 IV (05:47)
[2024-10-18] MEDS: LOPRESSOR 5 MG IV ×3 (05:51→18:12)
[2024-10-18 07:35] VITALS: BP 137/62
[2024-10-18 08:10] LABS: Hematocrit 25.1 % (39.0-52.0); Hemoglobin 7.9 g/dL (13.0-18.0); Mean Corp Hgb Conc. 31.5 g/dL (33.0-37.0); Mean Corpuscular Hgb 32.9 pg (27.0-31.0); Mean Corpuscular Volume 104.6 fL (80.0-94.0); Mean Platelet Volume 10.8 fL (7.4-10.4); Platelet Count 119 10^3/uL (130-400); Red Cell Dist. Width 21.1 % (11.5-14.5); White Blood Cell Count 5.2 10^3/uL (4.8-10.8)
[2024-10-18] MEDS: STRIVERDI RESPIMAT 2 PUFF INH (08:11)
[2024-10-18] MEDS: SPIRIVA RESPIMAT 2.5 MCG 2 PUFF INH (08:11)
--- NOTE | 2024-10-18 08:11 | W.PN.HOSP.TC ---
Today's Communication/Plan
-
Continue IV abx.
For EGD tomorrow
Assessment / Plan
Assessment / Plan
79-year-old male with history of metastatic lung cancer +chemo and radiation, and COPD who presents with dysphagia and right sided pneumonia
Acute right-sided pneumonia, possibly aspiration given dysphagia history
-Continue vancomycin and Zosyn
- Remains afebrile
-Wean off O2 as tolerated (2L NC now)
Dysphagia:
-GI consulted and planning for possible EGD tomorrow
-Appreciate speech therapy input. VSE - aspiration risk, recommends single small sips of thin liquids
-Otherwise NPO for EGD
-Continue Protonix 40mg IV BID
Chronic HFmrEF:
-Echo Aug 2024: Normal left ventricular chamber size with mildly reduced systolic function. LVEF 46%.
-BNP is elevated compared to July, but decreased compared to August
-Patient received Lasix 40mg IV in ED - Hold on further diuretics
-Monitor Daily Weights. Continue IV beta anna
Elevated Troponin, chronically elevated
Metastatic Lung Cancer - Managed at [facility]
-Patient received chest radiation for bony mets in Apr 2024
-Last immunotherapy Oct 11
Pancytopenia due to Chemotherapy
-Count Stable
COPD / Interstitial Lung Disease
-Continue Anoro Ellipta and DuoNeb PRN
Coronary Artery Disease s/p Stent
-Resume aspirin when able to tolerate oral meds
Essential Hypertension
-Transition Toprol XL to Lopressor 5mg IV q6H until able to resume oral meds
Hyperlipidemia
-Hold Crestor until able to resume oral meds
DVT proph: Lovenox
Code Status: Full Code
Anticipated Discharge: 24 - 48 hours
Subjective/Interval History
-
Date of Service: October 18, 2024
Pt complains of excessive phlegm/sputum.
Objective Data
-
Labs:
Laboratory Results
10/18/24
07:29
WBC 5.2
Hgb 7.9 L
Hct 25.1 L
Plt Count 119 L
Sodium Pending
Potassium Pending
Chloride Pending
Carbon Dioxide Pending
BUN Pending
Creatinine Pending
Glucose Pending
Calcium Pending
Vital Signs:
Vital Signs
Temp Pulse Resp BP Pulse Ox
98.0 F 72 18 148/74 99
10/18/24 03:26 10/18/24 05:51 10/18/24 03:26 10/18/24 05:51 10/18/24 03:26
I&O
10/17/24 10/18/24 10/19/24
06:59 06:59 06:59
Intake Total 930 / 930
Output Total 100 / 100
Balance 830 / 830
Review of Systems
-
History Source: Patient
EENT: Reports Other (excessive sputum/phlegm)
Respiratory: Denies Trouble Breathing
Cardiac: Denies Chest Pain
Abdomen/GI: Denies Abdominal Pain, Nausea or Vomiting
Genitourinary: Denies Dysuria
Physical Exam
-
General: Appears Chronically Ill and Other (appears somewhat uncomfortable)
HEENT: Atraumatic and Moist Mucous Membranes
Respiratory: Clear to Auscultation and Non Labored Respirations; Negative Wheezes, Rales, Rhonchi or Crackles
Cardiac: Regular Rhythm and S1/S2; Negative Murmur, Rub or Calf Tenderness
GI: Soft, Nontender, Nondistended and Normal Bowel Sounds
Musculoskeletal: No Clubbing, No Cyanosis and No Edema
Skin: Warm and Dry
Neuro: Awake, Alert and Oriented
Psych: Calm
[2024-10-18 08:28] LABS: Blood Urea Nitrogen 20 mg/dl (9-20); Carbon Dioxide 28 mmol/L (22-30); Chloride 106 mmol/L (98-107); Estimated Creatinine Clearance 42 ml/min; Glucose 139 mg/dl (70-99); Sodium 140 mmol/L (135-145); eGFR 56.58
[2024-10-18] MEDS: CARAFATE SUSPENSION 1 GM PO ×3 (08:56→16:21)
[2024-10-18] MEDS: NSS (PRESERVATIVE FREE) 10 ML IV ×2 (08:57→20:00)
[2024-10-18] MEDS: PROTONIX IV 40 MG IV ×2 (08:58→20:00)
--- NOTE | 2024-10-18 09:00 | W.PN.GI.CBS2 ---
Addendum entered and electronically signed by Smiley Campbell Do, MD 10/18/24 12:29:
I saw and examined the patient.
The SYSTEMS LEAD's note was reviewed and I agree with the note.
Comment: bedside patient is depressed. He does want to continue with chemo. However not doing well. Denies abd pain. Wants diet but admits that whatever he eats he regurgitates later and may affect respiratory status. Vitals reviewed 4L NC
now down to 2L today. ill appearing, thin, diffuse bruising, abd soft mildly distended. Labs reviewed.
Recommendations
- Video swallow eval reviewed and thought aspiration risk
- NPO with sips
- If respiratory status improves anticipate EGD tomorrow
- C/w PPI IV BID and carfarate
Will follow with you. Family updated bedside. Hospitalist updated as well
Original Note:
Today's Communication / Plan
-
Pt with current PNA and concern for worsening dysphagia with inability to tolerate solids or liquid
Etiology of dysphagia oropharygeal vs esophageal related -- possible thrush, radiation induced esophagitis, stricture, ext compression with known lung CA vs other
still requiring 4 liter O2 this am and weaning down to 2 liters
pt admits to less secretions overnight but now with some cough and congestion on waking up
will hold on EGD today til PNA further treated consider for AM
cont NPO for now
reviewed with speech to proceed with evaluation
cont medical optimization on cardiopulm status with current PNA /hypoxemia
when improved consider EGD -- tenative for 10/19 if resp status stable
cont carafate added if able to tolerate hold prior to EGD in AM
cont PPI BID
add miralax PRN with hx prior constipation as Carafate can be constipation
when improved OP follow up at [facility] for continued treatment
Assessment / Plan
-
Pt is a 79-year-old male with a past medical history of HTN, HLD, DM, hx of prior [place], CAD (s/p LAD and RCA stents 2013), HFrEF with ICM (w/ EF 45-50%), bifascicular block, NSVT (s/p ICD), mild/moderate mitral regurgitation, anemia with obscure GI
bleed with capule/ SB enteroscopy with Jone with cauterization in 2014, prior estelle, COPD, JD (on CPAP), and metastatic NSCLC with follow with Dr. Vo at [facility] (radiation til May, on chemo last 09/22 with Immunotherapy 10/11, mets to the
bone and liver) complicated by pancytopenia (due to chemotherapy, recent hospitalization on 08/2024) who was recently referred to the GI office by his PCP due to concern for dysphagia and seen this week but now with worsening symptoms and presents to
ER with inability to swallow. In review he is noted with 6 week with worsening dysphagia with liquid and solids. He admits to control of secretion but note spitting up during evaluation. Pt admits to taking guaifenesin on a regular basis with
cough at night. He is also noted with shortness of breath and hypoxia in ER. CXR concerning for PNA. He does have chronic GERD on chronic PPI BID. Per office notes there was also concern for oral thrush by ENT. He take occasional Miralax for
constipation. Pt otherwise Denies any odynophagia, abdominal pain, diarrhea or rectal bleeding. No other NSAIDs. distant hx ETOH use 20 + years but no recent significant alcohol. On admission noted with hbg 8.4 similar to August labs, platelet
119 up for 20-30 range, glucose 168, bili 1,4, AST 36, ALT 24, alk phos 126 troponin 0.036 otherwise stable labs. Last EGD 11/2014 with a normal esophagus and biopsies with non-specific chronic inflammation which were (-) for EoE during that time.
-dysphagia with solid and liquids
-regurgitation with inability to tolerate PO on admission
-hypoxemia with PNA on CXR on Admission and CHF/COPD exacerbation in differential
-elevated troponin
-anemia with recent pancytopenia with chemo
-GERD on chronic PPI therapy
-recent noted concern for thrush
-metastatic NSCLCA with treatment at [facility] s/p radiation completed in May, chemo last in August and recent Immunotherapy
other med problems:
-DM
-hx [place]/CAD with prior stent
-ICD/pacer
-JD
-obscure GI bleed with SB ectasias
-prior estelle
PLAN:
Pt with current PNA and concern for worsening dysphagia with inability to tolerate solids or liquid
Etiology of dysphagia oropharygeal vs esophageal related -- possible thrush, radiation induced esophagitis, stricture, ext compression with known lung CA vs other
still requiring 4 liter O2 this am and weaning down to 2 liters
pt admits to less secretions overnight but now with some cough and congestion on waking up
will hold on EGD today til PNA further treated consider for AM
cont NPO for now
reviewed with speech to proceed with evaluation
cont medical optimization on cardiopulm status with current PNA /hypoxemia
when improved consider EGD -- tenative for 10/19 if resp status stable
cont carafate added if able to tolerate hold prior to EGD in AM
cont PPI BID
add miralax PRN with hx prior constipation as Carafate can be constipation
when improved OP follow up at [facility] for continued treatment
Subjective
Subjective
Date of Service: October 18, 2024
less mucous overnight but still with cough and congestion with bringing up some mucous this am-- cont NPO on 4 liter O2 overnight and now attempting to wean
Objective
Data Reviewed
Laboratory Data:
Laboratory Results
10/18/24 07:29
10/18/24 07:29
Laboratory Results
Magnesium 2.1 mg/dl (1.6-2.3) 10/17/24 11:17
Total Bilirubin 1.4 mg/dl (0.2-1.3) H 10/17/24 11:17
AST 36 U/L (17-59) 10/17/24 11:17
ALT 24 U/L (0-50) 10/17/24 11:17
Alkaline Phosphatase 126 U/L (38-126) 10/17/24 11:17
Vital Signs and I&O:
Vital Signs
Temp Pulse Resp BP Pulse Ox
97.8 F 70 18 137/62 100
10/18/24 07:35 10/18/24 08:15 10/18/24 07:35 10/18/24 07:35 10/18/24 08:15
I&O
10/17/24 10/18/24 10/19/24
06:59 06:59 06:59
Intake Total 930 / 930
Output Total 100 / 100
Balance 830 / 830
Physical Exam
Physical Exam
HEENT: Anicteric and Moist mucous membranes
Cardiology: Normal Sinus Rhythm
Pulmonary: Rhonchi and Other (still at side of bed in tripod position)
GI: Soft, Non Distended and Non Tender
Extremities: Edema
Neuro: Other
--- NOTE | 2024-10-18 10:19 | PHA.VAN.FU ---
Vancomycin Assessment / Plan
- Assessment
Renal Function: SCR Increasing
WBC's are: WNL
In the past 24 hrs, patient has been: Afebrile
Concomitant Antimicrobials: piperacillin/tazobactam
- Dosing Plan
Adjust Regimen to: dosing by level for increased SCR
- Monitoring Plan
Random Level: 10/19 0600
- Follow Up
Pharmacy will continue to follow.
Vancomycin Follow UP
- -
Patient Age: 79
Patient Sex: Male
Vancomycin Day #: 2
Indication: Pulmonary/Respiratory
Requesting Provider: Aaliyah Delatorre
Pertinent Antimicrobial Allergies:
NKDA
Height / Weight:
Height 5 ft 6 in
Actual Weight 62.142 kg
IBW in k.8
Pertinent Past Medical History: metastatic lung CA, COPD
- Vital Signs / Lab Results
Temp Pulse Resp BP Pulse Ox
97.8 F 70 18 137/62 100
10/18/24 07:35 10/18/24 08:15 10/18/24 07:35 10/18/24 07:35 10/18/24 08:15
Lab Results - Hematology
10/17/24 10/18/24
11:17 07:29
WBC 8.2 5.2
Lab Results - Chemistry
10/17/24 10/18/24
11:17 07:29
BUN 17 20
Creatinine 1.1 1.3
Estimated Creat Clear 42
Albumin 3.8
Microbiology Results
10/17/24 11:17 Influenza Types A & B ([facility]) - Final
Nasal Swab Negative for Influenza A & B, NAAT
Negative results must be combined with clinical observations
and patient history.
Nucleic Acid Amplification test (NAAT)performed on the
[employer] platform.
--- NOTE | 2024-10-18 10:59 | W.PN.UPDATE ---
Update Note
Progress Note Update
I saw and evaluated the patient. I reviewed the resident�s note and agree with findings and plan as documented in the resident�s note.
Gen: NAD, AAOx3, appears chronically ill.
Eyes: EOMI, PERRLA, no scleral icterus.
Neck: supple.
CV: RRR, +S1/S2, no m/r/g.
Resp: Decreased breath sounds in the right hemithorax, no rales, wheezes, or rhonchi.
Abd: +BS, soft, NT, ND
Skin: No rashes.
Neuro: CN 2-12 intact, non-focal.
Psych: Normal mood and affect.
Chest X-Ray:
New findings suggesting right lower lobe and medial right upper lobe pneumonia.
Tiny bilateral pleural effusions. Progressed.
Mild cardiomegaly. Stable
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 Stable
Acute R-sided Pneumonia, possibly due to acute aspiration:
-Currently on vancomycin and Zosyn
-check procal (if NEG would have relevance)
-no leukocytosis or fever
-Was on 4L NC O2, now down to 2L NC O2, wean as tolerated
Dysphagia:
-acute on chronic
-GI/speech following
-NPO (failed VFSS)
-cont PPI
-possible EGD tomorrow
-gentle IVFs while NPO
Chronic HFmrEF:
-Echo Aug 2024: Normal left ventricular chamber size with mildly reduced systolic function. LVEF 46%.
-BNP is elevated compared to July, but decreased compared to August
-Patient received Lasix 40mg IV in ED - Hold on further diuretics
-daily wts, I/Os
-cont IV BB
Metastatic Lung Cancer:
-Managed at [facility]
-Patient received chest radiation for bony mets in Apr 2024
-Last immunotherapy 10/11/24
-with pancytopenia due to Chemotherapy
Other problems:
Chronically elevated troponin
COPD / Interstitial Lung Disease: not in acute exac, cont Anoro Ellipta and DuoNeb PRN
Coronary Artery Disease s/p Stent: cont IV BB, resume ASA/statin when able to take PO meds
Essential Hypertension: cont IV BB
Hyperlipidemia: resume statin once able to take PO
Patient's updated at bedside.
FULL/Lovenox
Total time spent on today's encounter was 50 minutes which included time spent in counseling the patient/family regarding diagnosis and treatment plan as listed above, goals of care, and symptom management. Case was discussed with nursing staff,
specialists, and care coordinators/case management. All labs and imaging personally reviewed by me. Remainder the time spent in detailed review of previous records, lab data, imaging, and other medical provider documentation.
[2024-10-18 11:12] VITALS: BP 138/69
--- NOTE | 2024-10-18 11:20 | CM ---
Pt seen bedside w/ spouse. Initial assessment completed. Admitted for shortness of breath.
Pt lives w/ spouse in [place]-no steps to enter. Pt is independent w/ the use of a RW, pt has a cane as well and shower rails. No other DME identified. Pt is currently on 4L O2, does not use any at baseline.
Pt denies SNF/VN/PT hx.
Address, points of contact and insurance verified
PCP: Dr. Ira Coleman
Pharmacy: [facility]
Speech eval completed today
Plan: CM will cont to follow hospital course
[2024-10-18] MEDS: NSS 1000 IV (11:47)
[2024-10-18 12:02] LABS: Procalcitonin 0.15 ng/ml (0.0-0.25)
[2024-10-18 12:48] VITALS: BMI 22.1
[2024-10-18 15:15] VITALS: BP 139/51
[2024-10-18] MEDS: MIRALAX 17 GRAMS PO (16:20)
--- NOTE | 2024-10-18 16:23 | PTOTSP ---
Videofluoroscopic swallow study
Summary: At least mild oral, mild-moderate pharyngeal dysphagia and concern for esophageal dysphagia (i.e., retention t/o esophagus with retrograde flow through PES). Deep laryngeal penetration with thin via cup, large bolus of thin via straw, and
consecutive straw sips of mildly thick. No visualized aspiration. See patient care note for full report.
Given concern for bottom up aspiration risk, consider sips of thin liquids only until further esophageal assessment with gastroenterology.
Recommendations:
1. Thin Liquids until further esophageal assessment by GI
2. Medications: essential medications crushed in puree
3. Oral care 3x daily
4. Strategies: upright to 90 degrees, SMALL single straw sips, intermittent cough/reswallow, remain upright for at least 30 minutes after PO intake as a reflux precaution
5. Dysphagia therapy at the acute care level for instruction in compensations, determine if/when diet advancement appropriate.
--- NOTE | 2024-10-18 16:44 | CON.MD ---
Consultation - Medical
-
79 yr old M w/ PMH of metastatic lung cancer, COPD, HLD, HTN, ILD, HFmrEF, and CAD w/ stents who presented with increased shortness of breath & cough, as well as poor oral intake - prior to admission was unable to tolerate oral intake at all
including water. Psychiatry consulted due to concerns of anxiety and confusion with some intermittent agitated episodes.
Pt seen & evaluated at bedside. Is quite pleasant - denies prior hx of significant psychiatric concerns. Pt is able to report that he has been seeing his mother recently in odd places, which has been confusing & disorienting. Also describes feeling
scared/paranoid in particular at night - thinks he is being attacked in the evenings and becomes visibly anxious when talking about this. Initially is aware that he is in the hospital but soon appears to think he is home - waxing/waning levels of
consciousness with associated confusion observed. Pt also reports poor sleep with anxious distress recently, likely due to paranoia & AVH he has been experiencing.
Suspect early stages of delirium with associated disturbance of perception
MSE:calm,cooperative,pleasant,speech is normal rate & rhythm,,mood is anxious, affect is appropriate though at times anxious, thought process is circumstantial, at times tangential, thought content: denies SI/HI, reports intermittent AVH/delusions.
Disoriented (except to self). Memory not formally tested. Insight/Judgement moderate.
1. Seroquel 25mg HS +12.5mg TID PRN agitation/distressing AVH
- discussed risks with pt who agreed to trial, if NPO may need to defer to tomorrow (at pts request)
Will follow.
[2024-10-18] MEDS: LOVENOX 40 MG SC (18:11)
[2024-10-18 19:12] VITALS: BP 128/90
[2024-10-18] MEDS: SEROQUEL 25 MG PO (20:00)
[2024-10-18 23:54] VITALS: BP 148/72
[2024-10-19] VITALS (7 sets, daily range): BP systolic 117–148; BP diastolic 49–96; BMI 22.0
[2024-10-19] MEDS: LOPRESSOR 5 MG IV ×3 (00:43→17:54)
[2024-10-19] MEDS: ZOSYN 100 IV ×4 (04:45→23:06)
[2024-10-19] MEDS: LOPRESSOR IV (06:09)
[2024-10-19] MEDS: NSS 1000 IV (06:17)
[2024-10-19] MEDS: STRIVERDI RESPIMAT 2 PUFF INH (07:17)
[2024-10-19] MEDS: SPIRIVA RESPIMAT 2.5 MCG 2 PUFF INH (07:17)
[2024-10-19 07:32] LABS: Hematocrit 27.1 % (39.0-52.0); Hemoglobin 8.6 g/dL (13.0-18.0); Mean Corp Hgb Conc. 31.7 g/dL (33.0-37.0); Mean Corpuscular Hgb 34.3 pg (27.0-31.0); Mean Platelet Volume 9.8 fL (7.4-10.4); Platelet Count 103 10^3/uL (130-400); Red Blood Cell Count 2.51 10^6/uL (4.70-6.10); Red Cell Dist. Width 20.5 % (11.5-14.5); White Blood Cell Count 9.6 10^3/uL (4.8-10.8)
[2024-10-19 07:51] LABS: Blood Urea Nitrogen 17 mg/dl (9-20); Calcium 7.9 mg/dl (8.4-10.2); Carbon Dioxide 29 mmol/L (22-30); Chloride 105 mmol/L (98-107); Estimated Creatinine Clearance 42 ml/min; Glucose 94 mg/dl (70-99); Potassium 3.4 mmol/L (3.5-5.1); Sodium 141 mmol/L (135-145); eGFR 56.58
[2024-10-19 07:55] LABS: INR 1.18; PT 15.3 Sec (11.4-14.6)
[2024-10-19 08:04] LABS: Vancomycin Random 12.5 ug/ml
--- NOTE | 2024-10-19 08:24 | W.PN.GI.CBS2 ---
Today's Communication / Plan
-
EGD with possible PEG placement Tuesday if patient and agreable
Assessment / Plan
-
Pt is a 79-year-old male with a past medical history of HTN, HLD, DM, hx of prior [place], CAD (s/p LAD and RCA stents 2013), HFrEF with ICM (w/ EF 45-50%), bifascicular block, NSVT (s/p ICD), mild/moderate mitral regurgitation, anemia with obscure GI
bleed with capule/ SB enteroscopy with Jone with cauterization in 2014, prior estelle, COPD, JD (on CPAP), and metastatic NSCLC with follow with Dr. Vo at [facility] (radiation til May, on chemo last 09/22 with Immunotherapy 10/11, mets to the
bone and liver) complicated by pancytopenia (due to chemotherapy, recent hospitalization on 08/2024) who was recently referred to the GI office by his PCP due to concern for dysphagia and seen this week but now with worsening symptoms and presents to
ER with inability to swallow. In review he is noted with 6 week with worsening dysphagia with liquid and solids. He admits to control of secretion but note spitting up during evaluation. Pt admits to taking guaifenesin on a regular basis with
cough at night. He is also noted with shortness of breath and hypoxia in ER. CXR concerning for PNA. He does have chronic GERD on chronic PPI BID. Per office notes there was also concern for oral thrush by ENT. He take occasional Miralax for
constipation. Pt otherwise Denies any odynophagia, abdominal pain, diarrhea or rectal bleeding. No other NSAIDs. distant hx ETOH use 20 + years but no recent significant alcohol. On admission noted with hbg 8.4 similar to August labs, platelet
119 up for 20-30 range, glucose 168, bili 1,4, AST 36, ALT 24, alk phos 126 troponin 0.036 otherwise stable labs. Last EGD 11/2014 with a normal esophagus and biopsies with non-specific chronic inflammation which were (-) for EoE during that time.
-dysphagia with solid and liquids
-regurgitation with inability to tolerate PO on admission
-hypoxemia with PNA on CXR on Admission and CHF/COPD exacerbation in differential
-elevated troponin
-anemia with recent pancytopenia with chemo
-GERD on chronic PPI therapy
-recent noted concern for thrush
-metastatic NSCLCA with treatment at [facility] s/p radiation completed in May, chemo last in August and recent Immunotherapy
other med problems:
-DM
-hx [place]/CAD with prior stent
-ICD/pacer
-JD
-obscure GI bleed with SB ectasias
-prior estelle
PLAN:
Pt with current PNA and concern for worsening dysphagia with inability to tolerate solids or liquid
Etiology of dysphagia oropharygeal vs esophageal related -- possible thrush, radiation induced esophagitis, stricture, ext compression with known lung CA vs other
weaning down to 2 liters
pt admits to less secretions buts still with productive cough
will hold on EGD till PNA further treated
will also discuss with and patient since he failed the video swallow with risk of aspiration and possible aspiration pneumonia may need EGD with PEG placement
cont NPO for now
cont medical optimization on cardiopulm status with current PNA /hypoxemia
cont carafate added if able to tolerate hold prior to EGD in AM
cont PPI BID
Continue MiraLAX as needed for constipation
when improved OP follow up at [facility] for continued treatment
Subjective
Subjective
Date of Service: October 19, 2024
Still with a cough productive and on 2 L nasal cannula. He has not had a bowel movement yet regurgitation less with NPO status, had BM 10/18
Objective
Data Reviewed
Laboratory Data:
Laboratory Results
10/19/24 07:14
10/19/24 07:14
Laboratory Results
PT 15.3 Sec (11.4-14.6) H 10/19/24 07:14
INR 1.18 10/19/24 07:14
Magnesium 2.1 mg/dl (1.6-2.3) 10/17/24 11:17
Total Bilirubin 1.4 mg/dl (0.2-1.3) H 10/17/24 11:17
AST 36 U/L (17-59) 10/17/24 11:17
ALT 24 U/L (0-50) 10/17/24 11:17
Alkaline Phosphatase 126 U/L (38-126) 10/17/24 11:17
Vital Signs and I&O:
Vital Signs
Temp Pulse Resp BP Pulse Ox
98.2 F 72 16 118/96 100
10/19/24 03:15 10/19/24 07:22 10/19/24 07:22 10/19/24 06:09 10/19/24 07:22
I&O
10/18/24 10/19/24 10/20/24
06:59 06:59 06:59
Intake Total 930 / 930 480 / 480
Output Total 100 / 100 500 / 500
Balance 830 / 830 -20 / -20
Physical Exam
Physical Exam
Cardiology: Normal Sinus Rhythm
Pulmonary: Other (Decreased breath sounds at the bases especially on the right base and also with a few crackles)
GI: Soft, Non Distended, Non Tender and Normal Bowel Sounds
--- NOTE | 2024-10-19 08:59 | W.PN.HOSP.TC ---
Today's Communication/Plan
-
For EGD today
Assessment / Plan
Assessment / Plan
79-year-old male with history of metastatic lung cancer +chemo and radiation, and COPD who presents with dysphagia and right sided pneumonia
Acute right-sided pneumonia, possibly aspiration given dysphagia history
-Continue Zosyn. Vancomycin discontinued
-Remains afebrile
-Wean off O2 as tolerated (2L NC now)
Dysphagia:
-GI consulted. EGD today
-Appreciate speech therapy input. VSE - aspiration risk, recommends single small sips of thin liquids
-Otherwise NPO for EGD
-Continue Protonix 40mg IV BID
Chronic HFmrEF:
-Echo Aug 2024: Normal left ventricular chamber size with mildly reduced systolic function. LVEF 46%.
-BNP is elevated compared to July, but decreased compared to August
-Patient received Lasix 40mg IV in ED - Hold on further diuretics
-Monitor Daily Weights. Continue IV beta anna
Elevated Troponin, chronically elevated
Metastatic Lung Cancer - Managed at [facility]
-Patient received chest radiation for bony mets in Apr 2024
-Last immunotherapy Oct 11
- Pancytopenia from chemotherapy. Counts stable
COPD / Interstitial Lung Disease
-Not in acute exacerbation. Continue Anoro Ellipta
-DuoNeb PRN
Coronary Artery Disease s/p Stent
-continue aspirin when able
Essential Hypertension
-IV Lopressor
Hyperlipidemia
-Hold Crestor until able to resume oral meds
DVT proph: Lovenox
Code Status: Full Code
Anticipated Discharge: 24 - 48 hours
Subjective/Interval History
-
Date of Service: October 19, 2024
No acute events overnight
Objective Data
-
Labs:
Laboratory Results
10/19/24
07:14
WBC 9.6
Hgb 8.6 L
Hct 27.1 L
Plt Count 103 L
PT 15.3 H
INR 1.18
Sodium 141
Potassium 3.4 L
Chloride 105
Carbon Dioxide 29
BUN 17
Creatinine 1.3
Glucose 94
Calcium 7.9 L
Vital Signs:
Vital Signs
Temp Pulse Resp BP Pulse Ox
97.7 F 72 18 144/63 98
10/19/24 07:57 10/19/24 07:57 10/19/24 07:57 10/19/24 07:57 10/19/24 07:57
I&O
10/18/24 10/19/24 10/20/24
06:59 06:59 06:59
Intake Total 930 / 930 480 / 480
Output Total 100 / 100 500 / 500
Balance 830 / 830 -20 / -20
Review of Systems
-
History Source: Patient
EENT: Reports Other (dysphagia, increased oral secretions)
Respiratory: Reports Cough; Denies Trouble Breathing
Cardiac: Denies Chest Pain
Abdomen/GI: Denies Abdominal Pain, Nausea or Vomiting
Physical Exam
-
General: Negative Comfortable
HEENT: Atraumatic and Moist Mucous Membranes
Respiratory: Decreased Breath Sounds (Right hemithorax)
Cardiac: Regular Rhythm and S1/S2; Negative Murmur, Rub or Calf Tenderness
GI: Soft, Nontender, Nondistended and Normal Bowel Sounds
Skin: Warm and Dry
Neuro: Awake, Alert and Oriented
Psych: Calm
[2024-10-19] MEDS: PROTONIX IV 40 MG IV ×2 (09:08→20:45)
[2024-10-19] MEDS: NSS (PRESERVATIVE FREE) 10 ML IV ×2 (09:09→20:45)
--- NOTE | 2024-10-19 10:50 | CM ---
Addendum entered by Carol Bowman 10/19/24 16:19:
Spoke w/ Bernarda/Sue regarding hospital bed order and poss O2 order. Informed O2 assessment has been ordered, not sure if RT will assess today or tomorrow. Bernarda instructed CM to fax facesheet and H&P to at least get bed order started for the
weekend worker who can reach out to the family about delivery.
WEEKEND CM TO FAX UPDATED NOTE FOR HOSPITAL BED AND ORDER O2 IF QUALIFIES
Addendum entered by Carol Bowman 10/19/24 15:52:
Met w/ pt and family at bedside. Palliative care assessed pt and discussed goals of care. Pt declined tube feeds and hospice at this time, pt wants to go home and be able to eat for pleasure despite aspiration risks. Family is requesting hospital
bed and home O2 as the focus is comfort and support at this time. CM informed that pt has to be assessed for home O2 to see if he qualifies for it. CM TT physician resident informing of hospital bed request and home O2 assessment, message
acknowledged.
Pt's spouse stated that pt's PCP is working on home care so is not needing assistance w/ that, but more so wanting equipment for pt to be comfortable and have support at home. Spouse stated they are still working out things w/ Barry shah as pt has an
oncologist following. Spouse shared if oncologist has successful tx options for pt, then they will consider implementing palliative care but plan is unknown at this time.
Plan: Home w/ DME. CM will order hospital bed and O2 if qualifies
Original Note:
Chart reviewed for d/c planning and hospital course updates. Per chart, EGD today with possible PEG placement Tuesday if pt and agreeable.
Pt cont on O2 (2L), cont to wean. Pt does not use at baseline.
Psych evaluated for confusion, anxiety and agitated episodes. Will cont to follow
Plan: Home; no needs likely. CM will cont to follow for any d/c needs pending pt's progress
--- NOTE | 2024-10-19 11:51 | W.PN.UPDATE ---
Addendum entered and electronically signed by Ronnie Ugalde MD 10/19/24 15:59:
Patient is in need of a semi-electric hospital bed with foam mattress due to the need to elevate head of bed above 30 degrees to prevent aspiration and to facilitate frequent repositioning to prevent bed ulcers and pressure points.
Addendum entered and electronically signed by Ronnie Ugalde MD 10/19/24 13:45:
Severe protein calorie malnutrition
Acute metabolic encephalopathy
Original Note:
Update Note
Progress Note Update
I saw and evaluated the patient. I reviewed the resident�s note and agree with findings and plan as documented in the resident�s note.
Denies chest pain, shortness of breath, abdominal pain.
Gen: NAD, AAOx3, appears chronically ill.
Eyes: EOMI, PERRLA, no scleral icterus.
Neck: supple.
CV: Remains RRR, +S1/S2, no m/r/g.
Resp: Remains with decreased breath sounds in the right hemithorax, no rales, wheezes, or rhonchi.
Abd: +BS, soft, NT, ND
Skin: No rashes.
Neuro: Remains CN 2-12 intact, non-focal.
Psych: Normal mood and affect.
Chest X-Ray:
New findings suggesting right lower lobe and medial right upper lobe pneumonia.
Tiny bilateral pleural effusions. Progressed.
Mild cardiomegaly. Stable
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 Stable
Acute R-sided Pneumonia, possibly due to acute aspiration:
-Cont Zosyn for now
-procal 0.15
-no leukocytosis or fever
-Was on 4L NC O2, now down to 2L NC O2, wean as tolerated
Dysphagia:
-acute on chronic
-GI/speech following
-NPO (failed VFSS)
-cont PPI
-EGD today
-gentle IVFs while NPO
-will likely need PEG tube
Chronic HFmrEF:
-Echo Aug 2024: Normal left ventricular chamber size with mildly reduced systolic function. LVEF 46%.
-BNP is elevated compared to July, but decreased compared to August
-Patient received Lasix 40mg IV in ED - Hold on further diuretics
-daily wts, I/Os
-cont IV BB
Metastatic Lung Cancer:
-Managed at [facility]
-Patient received chest radiation for bony mets in Apr 2024
-Last immunotherapy 10/11/24
-with pancytopenia due to Chemotherapy
Other problems:
Chronically elevated troponin
COPD / Interstitial Lung Disease: not in acute exac, cont Anoro Ellipta and DuoNeb PRN
Coronary Artery Disease s/p Stent: cont IV BB, resume ASA/statin when able to take PO meds
Essential Hypertension: cont IV BB
Hyperlipidemia: resume statin once able to take PO
Patient's updated at bedside.
FULL/Lovenox
--- NOTE | 2024-10-19 11:56 | PN.CDI ---
CDI
- -
CDI:
Physician Documentation Request
Admit Date: 10/17/24 14:52
Dear Doctor April,
Patient admitted for pneumonia.
10/18 PCN: 'Pt. having episodes of delirium, agitation, able to be re oriented.'
10/18 Psychiatry Consult: 'Suspect early stages of delirium with associated disturbance of perception'
Please specify the known or suspected type of the documented altered mental status:
Toxic metabolic encephalopathy
Metabolic encephalopathy
Hospital acquired delirium
Other
Use of terms such as suspected, likely, concern for, or probable (associated with a specific diagnosis that is being evaluated, monitored, or treated as if it exists) are acceptable and can be coded in the inpatient setting, when documented at the
time of discharge.
Thank you,
Binta Reddy RN, BSN
CDI Specialist
Available via [place] [employer] text
Please use your independent medical judgment in providing your response.
--- NOTE | 2024-10-19 12:15 | PN.CDI ---
CDI
- -
CDI:
Physician Documentation Request
Admit Date: 10/17/24 14:52
Dear Doctor April,
Patient admitted for pneumonia.
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 Significant 11lb 8% weight loss over the past 2 months...Pt meets criteria for severe protein calorie
malnutrition of chronic illness with prolonged poor intake prior to admission <75% for >1 month & significiant weight loss >5% over 1 month.'
Based on the above information and your assessment, which of the following most accurately represents the patient's nutritional status?
Severe protein calorie malnutrition
Other
[place] Criteria ([facility] Hospitalist 2017)
2 or more criteria must be present for either
non severe or severe malnutrition
Note that the criteria differs related to the
presence of an acute or chronic illness
Acute Illness Chronic Illness
Energy Intake Non Severe: <75% for >7 days Non Severe: <75% for >1 month
Severe: <50% for >5 days Severe: <75% for >1 month
Weight Loss Non Severe: 1-2% over 1 week Non Severe: 5% over 1 month
5% over 1 month 7.5% over 3 months
7.5% over 3 months 10% over 6 months
1 year N/A 20% over 1 year
Severe: >2% over 1 week Severe: >5% over 1 month
>5% over 1 month >7.5% over 3 months
>7.5% over 3 months >10% over 6 months
1 year N/A >20% over 1 year
Body Fat Non Severe: Mild Decrease Non Severe: Mild Loss
Severe: Moderate Decrease Severe: Severe Loss
Muscle Mass Non Severe: Mild Decrease Non Severe: Mild Loss
Severe: Moderate Decrease Severe: Severe Loss
Fluid Accumulation Non Severe: Mild Accumulation Non Severe: Mild Accumulation
Severe: Moderate to severe Severe: Moderate to severe
accumulation accumulation
Reduced Tea Blender Strength Non Severe: N/A Non Severe: N/A
Severe: Measurably reduced Severe: Measurably reduced
Additional criteria that can be used to Determine if Mild or Moderate Malnutrition ([employer]ck Manual 2018)
Mild Moderate Severe
Albumin gm/dl <3.0 gm/dl <2.5 gm/dl <2.0 gm/dl
Pre Albumin mg/dl <15 gm/dl <10 mg/dl <5.0 mg/dl
BMI <18.5 <17 <16
Use of terms such as suspected, likely, concern for, or probable (associated with a specific diagnosis that is being evaluated, monitored, or treated as if it exists) are acceptable and can be coded in the inpatient setting, when documented at the
time of discharge.
Thank you,
Binta Reddy RN, BSN
CDI Specialist
Available via [place] text
Please use your independent medical judgment in providing your response.
--- NOTE | 2024-10-19 14:24 | W.PN.UPDATE ---
Addendum entered and electronically signed by Casandra Kraft MD 10/19/24 17:40:
GI will s/o and will be available as needed
Original Note:
Update Note
Progress Note Update
spoke to patient's and son at bedside at length and also with the patient. given risk of endoscopy secondary to his respiratory status and underlying history of metastatic lung cancer may need to be intubated for the procedure and may be
difficult to extubate. also with increased risk of aspiration with oral intake he may eventually need EGD with PEG placement versus consider palliative care since patient wants to eat for pleasure. Patient's says that he does have a living
will which states that he did not want a feeding tube unless it was absolutely necessary to save his life. I explained that given his underlying metastatic cancer overall prognosis seems poor and also his oncologist at [place] had recommended
palliative care in the past and the family was considering that. Patient's also discussed with patient at bedside family is agreeable to consider palliative care discussed with Dr. Ugalde he placed a consult for palliative care. Family would
like to take him home and feed for pleasure they are aware of the risk of aspiration.
--- NOTE | 2024-10-19 15:22 | W.CON.PAL ---
Consultation
-
Date/Time Consultation Requested: 10/19
Date/Time Consultation Performed: 10/19
Requesting Provider: Dr Ugalde
Performing Provider: Suzanne Ramos
Reason for Consult: Goals of Care Discussion
Primary Diagnosis: metastatic lung cancer with asp PNA
Reason for Admission
Illness Course/HPI
79 year old M with history of metastatic lung cancer to bone and liver, CAD, COPD, ILD admitted with SOB and cough. Also with progressive dysphagia. Under the care of [facility] for cancer treatment. S/p radiation to chest finished 04/2024, also received
chemo in August and doing immunotherapy.
Upon admission found to have aspiration PNA. Currently on treatment. Failed video swallow and rec NPO. GI following - thrush vs XRT induced dysphagia - recommended for EGD and possible PEG but high risk. Patient leaning towards no PEG.
Seen at bedside with , sister, son. Discussed options including comfort feeds vs PEG, palliative care vs hospice. concerned she will bring him home and he will get sick again and have to come back. Patient does not want a feeding tube, also
has a living will stating the same. He would be okay with coming back to the hospital again if he needed to, but woud not want CPR/intubation only medical management. Living will states this as well. We discussed hospice - they are waiting to hear
back fro his oncologist. If he is a candidate for more treatment, he wants to continue and go with palliative care. If he is not a treatment candidate, he knows hospice is the best option.
He wishes to not get the EGD/PEG and do comfort feeds. States all he wants is a glass of water. Understands the risks of this.
Family to call if palliative care is desired - info and phone number given,
Updated Dr Ugalde and GI attending of above conversation.
Goals of Care Discussion
-
Individuals Present for Discussion & Relationship to Patient:
see HPI
Pain & Symptom Assessment
[place] Symptom Scale 0=none, 10=worst
Pain: 0
Shortness of Breath: 0
Objective Data
-
Objective Data:
Vital Signs
Temp Pulse Resp BP Pulse Ox
97.6 F 70 16 130/66 100
10/19/24 11:11 10/19/24 12:55 10/19/24 11:11 10/19/24 12:55 10/19/24 11:11
Laboratory Results
10/19/24 07:14
10/19/24 07:14
PT 15.3 Sec (11.4-14.6) H 10/19/24 07:14
INR 1.18 10/19/24 07:14
Total Protein 6.0 g/dl (6.3-8.2) L 10/17/24 11:17
Albumin 3.8 g/dl (3.5-5.0) 10/17/24 11:17
Palliative Performance Scale
Palliative Performance Scale:
PPS Level Ambulation Activity & Evidence of Disease Self Care Intake Conscious Level
100% Full Normal Activity & Work; Full Intake Full
No Evidence of Disease
90% Full Normal Activity & Work; Full Normal Full
Some Evidence of Disease
80% Full Normal Activity with Effort Full Normal or Full
Some Evidence of Disease Reduced
70% Reduced Unable Normal Job/Work Full Normal or Full
Significant Disease Reduced
60% Reduced Unable Hobby/Housework Occasional Normal or Full or Confusion
Significant Disease Assistance Reduced
50% Mainly Sit/Lie Unable to do Any Work Considerable Normal or Full or Confusion
Extensive Disease Assistance Req'd Reduced
40% Mainly in Bed Unable to do Most Activity Mainly Assistance Normal or Full or Drowsy;
Extensive Disease Reduced +/- Confusion
30% Totally Bed Unable to do Any Activity Total Care Normal or Full or Drowsy;
Bound Extensive Disease Reduced +/- Confusion
20% Totally Bed Bound Unable to do Any Activity Total Care Minimal to Full or Drowsy;
Extensive Disease Sips +/- Confusion
10% Totally Bed Bound Unable to do Any Activity Total Care Mouth Care Drowsy or Coma;
Extensive Disease Only +/- Confusion
0%
PPS Score Level:
Palliative Performance Score Response
Palliative Performance Score Response: 60%
Physical Exam
-
General: Appears Chronically Ill
HEENT: Normocephalic
Respiratory: Rhonchi
Cardiac: Regular Rhythm
Peripheral Vascular: No Edema
GI: Soft
Musculoskeletal: Normal Gait & Station
Skin: Warm
Neuro: AO x 3
Psych: Calm
Assessment / Plan
-
Assessment/Plan:
79 year old M with metastatic lung cancer with dysphagia recommended for PEG
- declines PEG/EGD. Opting for comfort feeds and understands risks
- would not want CPR or intubation - please change to DNR/DNI
- await input from his oncologist at [facility] - if no treatment options then hospice appropriate. If continued treatment will call to set up outpatient palliative care.
- CM for any home needs
Care Reviewed
Data Reviewed
Radiology procedure: Image Reviewed
Medical Tests: I reviewed
Reviewed with: Patient, Family, Physician and Nurse
--- NOTE | 2024-10-19 16:32 | PTOTSP ---
Speech Therapy
Chart reviewed: patient is not interested in EGD/PEG and is considering palliative approach to care with consideration for hospice pending on oncology treatment options. Per recent VSE, patient at elevated risk for aspiration due to pharyngeal
dysphagia, but more so from bottom up route due to esophageal dysphagia. Patient wishes to eat despite known aspiration risk.
Per VSE, recommend allowing single sips of thin liquids and if cleared by GI consider IDDSI level 6 (soft and bite-sized solids). Medications crushed in puree. Frequent oral care.
Strategies: upright to 90 degrees, SMALL single straw sips, intermittent cough/reswallow, remain upright for at least 30 minutes after PO intake as a reflux precautions
--- NOTE | 2024-10-19 17:42 | W.PN.UPDATE ---
Update Note
Progress Note Update
Pt seen at bedside, chart reviewed, spoke with pt & his family (son, sister, ) - pt pleasantly confused, oriented to self but not otherwise. He did sleep well with seroquel & not experiencing acutely distressing avh/delusions currently, however
it seems seroquel was too sedating even at 25mg as pt was difficult to arouse at points. Pts sister & reported that he previously took olanzapine 5mg bid as pre-chemo regimen & tolerated this well.
Pt likely going home with plans for palliative care - pt wants to be able to sleep and enjoy some meals at home, family in agreement with this as well.
D/c seroquel
trial olanzapine 5mg HS + 2.5mg PRN if 5mg not adequate (has previously tolerated 5mg well without excessive sedation as with quetiapine)
[2024-10-19] MEDS: LOVENOX 40 MG SC (17:53)
[2024-10-19] MEDS: CARAFATE SUSPENSION 1 GM PO ×2 (17:53→23:06)
[2024-10-19] MEDS: KCL 270 MEQ IV (17:53)
[2024-10-19] MEDS: ZYPREXA ZYDIS (ORALLY DISINTEGRATING) 5 MG PO (18:07)
[2024-10-19] MEDS: DUONEB 3 ML INH (23:37)
[2024-10-19] MEDS: ZYPREXA ZYDIS (ORALLY DISINTEGRATING) 2.5 MG PO (23:53)
[2024-10-20] VITALS (7 sets, daily range): BP systolic 108–157; BP diastolic 51–80; BMI 22.1
[2024-10-20] MEDS: LOPRESSOR 5 MG IV ×2 (00:29→06:16)
[2024-10-20] MEDS: ZOSYN 100 IV ×4 (04:38→22:22)
[2024-10-20] MEDS: SPIRIVA RESPIMAT 2.5 MCG 2 PUFF INH (07:52)
[2024-10-20] MEDS: STRIVERDI RESPIMAT 2 PUFF INH (07:52)
[2024-10-20] MEDS: PROTONIX IV 40 MG IV (08:54)
[2024-10-20] MEDS: CARAFATE SUSPENSION 1 GM PO ×4 (08:54→22:23)
[2024-10-20] MEDS: FLUSH (NSS) 2 FLUSH IV (08:54)
[2024-10-20] MEDS: NSS (PRESERVATIVE FREE) 10 ML IV (08:54)
[2024-10-20 09:27] LABS: Hematocrit 28.4 % (39.0-52.0); Hemoglobin 8.9 g/dL (13.0-18.0); Mean Corp Hgb Conc. 31.3 g/dL (33.0-37.0); Mean Corpuscular Hgb 33.7 pg (27.0-31.0); Mean Corpuscular Volume 107.6 fL (80.0-94.0); Mean Platelet Volume 10.6 fL (7.4-10.4); Platelet Count 80 10^3/uL (130-400); Red Blood Cell Count 2.64 10^6/uL (4.70-6.10); Red Cell Dist. Width 19.9 % (11.5-14.5); White Blood Cell Count 6.3 10^3/uL (4.8-10.8)
--- NOTE | 2024-10-20 09:34 | W.PN.HOSP.TC ---
Today's Communication/Plan
-
see plan
Assessment / Plan
Assessment / Plan
Gen: NAD, Awake and alert, appears chronically ill.
Eyes: EOMI, PERRLA, no scleral icterus.
Neck: supple.
CV: Continues to RRR, +S1/S2, no m/r/g.
Resp: Continues to room with decreased breath sounds in the right hemithorax, no rales, wheezes, or rhonchi.
Skin: No rashes.
Neuro: Remains CN 2-12 intact, non-focal.
Psych: Agitated
Chest X-Ray:
New findings suggesting right lower lobe and medial right upper lobe pneumonia.
Tiny bilateral pleural effusions. Progressed.
Mild cardiomegaly. Stable
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 Stable
Acute R-sided Pneumonia, possibly due to acute aspiration:
-with acute metabolic encephalopathy
-Cont Zosyn for now. Currently unable to take pills. Will need 7 days abx total.
-procal 0.15
-no leukocytosis or fever
-Was on 4L NC O2, now down to 2L NC O2, wean as tolerated
Dysphagia:
-acute on chronic
-Failed VFSS
-GI saw in c/s, pt and family decided against EGD
-speech following, recommended IDDSI-6 diet as pt will not have PEG (pt and family aware of risk of aspiration)
-cont PPI
Chronic HFmrEF:
-Echo Aug 2024: Normal left ventricular chamber size with mildly reduced systolic function. LVEF 46%.
-BNP is elevated compared to July, but decreased compared to August
-Patient received Lasix 40mg IV in ED - Hold on further diuretics
-daily wts, I/Os
-cont BB
Metastatic Lung Cancer:
-Managed at [facility]
-Patient received chest radiation for bony mets in Apr 2024
-Last immunotherapy 10/11/24
-with pancytopenia due to Chemotherapy
Other problems:
Chronically elevated troponin
COPD / Interstitial Lung Disease: not in acute exac, cont Anoro Ellipta and DuoNeb PRN
Coronary Artery Disease s/p Stent: cont BB/ASA/statin
Essential Hypertension: cont BB
Hyperlipidemia: resume statin
Severe protein calorie malnutrition
Patient's sister updated at length at bedside. c/s hospice for informational purposes.
FULL/Lovenox
Total time spent on today's encounter was 50 minutes which included time spent in counseling the patient/family regarding diagnosis and treatment plan as listed above, goals of care, and symptom management. Case was discussed with nursing staff,
specialists, and care coordinators/case management. All labs and imaging personally reviewed by me. Remainder the time spent in detailed review of previous records, lab data, imaging, and other medical provider documentation.
Anticipated Discharge: 24 - 48 hours
Subjective/Interval History
-
Date of Service: October 20, 2024
Patient confused and agitated
Objective Data
-
Labs:
Laboratory Results
10/20/24
09:05
WBC 6.3
Hgb 8.9 L
Hct 28.4 L
Plt Count 80 L D
Sodium Pending
Potassium Pending
Chloride Pending
Carbon Dioxide Pending
BUN Pending
Creatinine Pending
Glucose Pending
Calcium Pending
Vital Signs:
Vital Signs
Temp Pulse Resp BP Pulse Ox
97.7 F 71 16 157/73 98
10/20/24 07:50 10/20/24 07:57 10/20/24 07:57 10/20/24 07:50 10/20/24 07:57
I&O
10/19/24 10/20/24 10/21/24
06:59 06:59 06:59
Intake Total 480 / 480 500 / 500
Output Total 500 / 500 925 / 925
Balance -20 / -20 -425 / -425
[2024-10-20 10:02] LABS: Blood Urea Nitrogen 14 mg/dl (9-20); Calcium 8.3 mg/dl (8.4-10.2); Carbon Dioxide 30 mmol/L (22-30); Chloride 110 mmol/L (98-107); Estimated Creatinine Clearance 42 ml/min; Glucose 101 mg/dl (70-99); Potassium 3.6 mmol/L (3.5-5.1); Sodium 144 mmol/L (135-145); eGFR 56.58
[2024-10-20] MEDS: CRESTOR 10 MG PO (11:45)
[2024-10-20] MEDS: FOLVITE 1 MG PO (11:45)
--- NOTE | 2024-10-20 12:28 | CM ---
Addendum entered by Kim Mccain 10/20/24 14:41:
Spoke with Moira Rangel from [facility], they will accept- they will deliver equipment tomorrow.
IMM explained & signed. In chart
OOH DNR on chart for signature, tt Dr. Ugalde
PLAN: home on [facility]
fax #: [phone]
Original Note:
Met with patient and [place]
CM consult for hospice eval & treat - options reviewed. would like to take him home on [facility].
Referral added in careport.
Spoke with Moira Rangel Liaison & will call .
PLAN: Hospice
[2024-10-20] MEDS: LOPRESSOR 50 MG PO ×2 (12:54→22:23)
--- NOTE | 2024-10-20 14:29 | W.PN.UPDATE ---
Update Note
Progress Note Update
Pt seen & evaluated, chart reviewed. Spoke with pt & his family (sister & present at bedside with pt) - pt confused and more irritable today, oriented to self but not otherwise. He slept somewhat but woke up early AM and was agitated, remains
intermittently paranoid through the day today.
Pt still hoping to go home with plans for palliative care - pt wants to be able to sleep and enjoy some meals at home, family in agreement with this as well. Currently this is delayed as they are waiting for arrival of a hospital bed to the home,
family does worry pt will become more agitated if told he has to stay another night.
Olanzapine 2.5mg AM/5mg HS + 2.5mg PRN acute agitation
- only received 2.5mg yesterday with minimal benefit it seems, previously tolerated 5mg BID at home
- ordering zydis, should go home with zydis rx as dissolving nature is preferable for pt given his difficulty w/ swallowing
[2024-10-20] MEDS: ZYPREXA ZYDIS (ORALLY DISINTEGRATING) 2.5 MG PO (15:24)
[2024-10-20] MEDS: IMODIUM 2 MG PO (16:12)
--- NOTE | 2024-10-20 16:25 | PTCARENOTE ---
Pt had 2 loose stools/diarrhea this morning and another one this afternoon. Yellow, loose/liquid, small/moderate amounts. Pt denies any abdominal pain/discomfort. Pt says he takes Imodium at home for diarrhea. Made Dr. Ugalde aware of diarrhea, asking
if he wants a C.Diff specimen sent. Dr. Ugalde indicated to not send a specimen. Order for Imodium from Dr. Ugalde. Updated pt and his of plan.
[2024-10-20] MEDS: LOVENOX 40 MG SC (17:44)
--- NOTE | 2024-10-20 18:23 | PTCARENOTE ---
Attempted to wean O2, 93-94% on RA, denying any SOB. On reassessment, pt states that he is feeling SOB while eating dinner. Reassessed SPO2, 87% on RA at rest. Reapplied O2 at 2L, SPO2 93-94% on 2L.
[2024-10-20] MEDS: PROTONIX 40 MG PO (22:23)
[2024-10-20] MEDS: ZYPREXA ZYDIS (ORALLY DISINTEGRATING) 5 MG PO (22:23)
[2024-10-20] MEDS: VITAMIN B-12 1000 MCG PO (22:23)
[2024-10-20] MEDS: ASPIR LOW (ENTERIC COATED) 81 MG PO (22:23)
[2024-10-21] MEDS: ZOSYN 100 IV ×2 (04:29→09:16)
[2024-10-21] MEDS: DUONEB 3 ML INH ×2 (04:46→07:53)
[2024-10-21 06:00] VITALS: BMI 22.1
[2024-10-21] MEDS: SPIRIVA RESPIMAT 2.5 MCG 2 PUFF INH (07:22)
[2024-10-21] MEDS: STRIVERDI RESPIMAT 2 PUFF INH (07:22)
[2024-10-21 07:55] VITALS: BP 144/71
--- NOTE | 2024-10-21 08:32 | W.PN.HOSP.TC ---
Today's Communication/Plan
-
d/c
Assessment / Plan
Assessment / Plan
Gen: NAD, Awake and alert, appears chronically ill.
Eyes: EOMI, PERRLA, no scleral icterus.
Neck: supple.
CV: RRR, +S1/S2, no m/r/g.
Resp: CTAB anteriorly
Skin: No rashes.
Neuro: CN 2-12 intact, non-focal.
Psych: calm
Chest X-Ray:
New findings suggesting right lower lobe and medial right upper lobe pneumonia.
Tiny bilateral pleural effusions. Progressed.
Mild cardiomegaly. Stable
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 Stable
Family has decided on hospice. The patient is being discharged to home hospice today.
Total time spent on d/c = 31 min. This included today's physical exam, progress note, review of laboratory and diagnostic data, preparation of discharge documents and prescriptions, and discussions about the pt's hospital course and discharge plan
with the patient and other medical health researcher involved in the patient's care.
From 10/20/24AM:
Acute R-sided Pneumonia, possibly due to acute aspiration:
-with acute metabolic encephalopathy
-Cont Zosyn for now. Currently unable to take pills. Will need 7 days abx total.
-procal 0.15
-no leukocytosis or fever
-Was on 4L NC O2, now down to 2L NC O2, wean as tolerated
Dysphagia:
-acute on chronic
-Failed VFSS
-GI saw in c/s, pt and family decided against EGD
-speech following, recommended IDDSI-6 diet as pt will not have PEG (pt and family aware of risk of aspiration)
-cont PPI
Chronic HFmrEF:
-Echo Aug 2024: Normal left ventricular chamber size with mildly reduced systolic function. LVEF 46%.
-BNP is elevated compared to July, but decreased compared to August
-Patient received Lasix 40mg IV in ED - Hold on further diuretics
-daily wts, I/Os
-cont BB
Metastatic Lung Cancer:
-Managed at [facility]
-Patient received chest radiation for bony mets in Apr 2024
-Last immunotherapy 10/11/24
-with pancytopenia due to Chemotherapy
Other problems:
Chronically elevated troponin
COPD / Interstitial Lung Disease: not in acute exac, cont Anoro Ellipta and DuoNeb PRN
Coronary Artery Disease s/p Stent: cont BB/ASA/statin
Essential Hypertension: cont BB
Hyperlipidemia: resume statin
Severe protein calorie malnutrition
Patient's sister updated at length at bedside. c/s hospice for informational purposes.
FULL/Lovenox
Anticipated Discharge: Today
Subjective/Interval History
-
Date of Service: October 21, 2024
Patient awoken from sleep. Does not answer questions at this moment.
Objective Data
-
Vital Signs:
Vital Signs
Temp Pulse Resp BP Pulse Ox
98.3 F 75 12 124/63 94
10/20/24 23:55 10/21/24 08:02 10/21/24 08:02 10/20/24 23:55 10/21/24 08:02
I&O
10/20/24 10/21/24 10/22/24
06:59 06:59 06:59
Intake Total 500 / 500 300 / 300
Output Total 925 / 925 1000 / 1000 325 / 325
Balance -425 / -425 -700 / -700 -325 / -325
[2024-10-21] MEDS: CRESTOR 10 MG PO (09:15)
[2024-10-21] MEDS: FOLVITE 1 MG PO (09:15)
[2024-10-21] MEDS: CARAFATE SUSPENSION 1 GM PO ×2 (09:15→12:14)
[2024-10-21] MEDS: LOPRESSOR 50 MG PO (09:15)
[2024-10-21] MEDS: KLOR-CON 20 MEQ PO (09:16)
[2024-10-21] MEDS: ZYPREXA ZYDIS (ORALLY DISINTEGRATING) 2.5 MG PO (09:16)
[2024-10-21] MEDS: PROTONIX IV 40 MG IV (09:16)
[2024-10-21] MEDS: NSS (PRESERVATIVE FREE) 10 ML IV (09:16)
[2024-10-21] MEDS: FLUSH (NSS) 2 FLUSH IV (09:17)
--- NOTE | 2024-10-21 09:40 | CM ---
Spoke to [place] - 1 step to enter the home & bed will be on 1st floor
Moira Rangel [phone] [facility] stated equipment delivery at 1pm
[facility] DNR signed & on chart
PLAN: Home, [facility]
fax #: [phone]
transportation forms on chart
--- NOTE | 2024-10-21 11:00 | PTCARENOTE ---
Scientific Associate here to turn off pt's AICD.
[2024-10-21 14:30] VITALS: BP 143/76
== END 2024-10-21 16:21 | disposition hospice, home (50) | DRG 180 ==
LOC: 4 EAST ACU 14:52
PROVIDERS: Nurse Practitioner Adult Health; Physician Assistant Medical; Student in an Organized Health Care Education/Training Program; ADMITTING PHYSICIAN Internal Medicine; ATTENDING PHYSICIAN Internal Medicine; CONSULT PHYSICIAN Internal Medicine Gastroenterology; CONSULT PHYSICIAN Nurse Practitioner Gerontology; EMERGENCY PHYSICIAN Emergency Medicine; FAMILY PHYSICIAN Family Medicine; OTHER PHYSICIAN Psychiatry & Neurology Psychiatry
DX: C34.90 Malignant neoplasm of unspecified part of unspecified bronchus or lung (principal); D61.810 Antineoplastic chemotherapy induced pancytopenia; J69.0 Pneumonitis due to inhalation of food and vomit; G93.41 Metabolic encephalopathy; E43 Unspecified severe protein-calorie malnutrition; J44.1 Chronic obstructive pulmonary disease with (acute) exacerbation; J44.0 Chronic obstructive pulmonary disease with (acute) lower respiratory infection; N17.9 Acute kidney failure, unspecified; I50.22 Chronic systolic (congestive) heart failure; C78.7 Secondary malignant neoplasm of liver and intrahepatic bile duct; C79.51 Secondary malignant neoplasm of bone; I5A Non-ischemic myocardial injury (non-traumatic); J84.9 Interstitial pulmonary disease, unspecified; Z11.52 Encounter for screening for COVID-19; Z87.891 Personal history of nicotine dependence; I11.0 Hypertensive heart disease with heart failure; Z68.22 Body mass index [BMI] 22.0-22.9, adult
CPT/HCPCS: 71046; 74230; 80048; 80053; 80202; 83735; 83880; 84145; 84484; 85025; 85027; 85610; 86850; 86900; 86901; 87070; 87502; 87641; 87811; 92610; 92611; 93005; 94640; 96374; 96375; 99285